=== PATIENT | male | born 1955 | race Hispanic/Latino ===

== ENCOUNTER 2020-03-19 11:40 | Inpatient (IN) | payer BC, MEDICARE ==
[~2020-03-19] VITALS: Ht 182.9 cm; Wt 78.7 kg
[2020-03-19] MEDS ORDERED: ACETAMINOPHEN 325 MG TAB ONE ×2 (12:08→12:11)
[2020-03-19] MEDS ORDERED: CEFTRIAXONE SOD 1 GM VIAL ONE (12:09)
[2020-03-19] MEDS ORDERED: SODIUM CHLORIDE 0.9% 500ML 500 ML IV ONE (12:15)
[2020-03-19] MEDS ORDERED: ACETAMINOPHEN 325 MG TAB PO ONE (12:15)
[2020-03-19 12:22] LABS: BASOPHILS % 0.1 % (0.0-1.0); HEMATOCRIT 33.9 % (38.2-49.6); HEMOGLOBIN 11.1 g/dL (14.0-18.0); LYMPHOCYTES # (AUTO) 0.7 (1.0-3.2); LYMPHOCYTES % 7.2 % (18.0-39.1); MEAN CORPUSCULAR HEMOGLOBIN 29.1 pg (28-32); MEAN CORPUSCULAR HGB CONC 32.7 g/dL (31-35); MEAN CORPUSCULAR VOLUME 88.7 fL (81-99); MONOCYTES # (AUTO) 0.2 (0.2-0.8); NEUTROPHILS # (AUTO) 9.1 (2.1-6.9); NEUTROPHILS % 90.2 % (38.7-80.0); PLATELET COUNT 168 x10e3/uL (140-360); RED BLOOD COUNT 3.82 x10e6/uL (4.3-5.7)
[2020-03-19 12:26] LABS: INR 1.05; PROTHROMBIN TIME 14.3 seconds (11.9-14.5)
[2020-03-19 12:28] LABS: PARTIAL THROMBOPLASTIN TIME 57.7 seconds (23.8-35.5)
[2020-03-19 12:42] LABS: ALBUMIN 3.2 g/dL (3.5-5.0); ALBUMIN/GLOBULIN RATIO 0.7 (0.8-2.0); CALCIUM 8.3 mg/dL (8.4-10.2); CREATININE, SERUM 3.67 mg/dL (0.72-1.25)
[2020-03-19 12:50] LABS: CREATINE KINASE MB 0.3 ng/mL (0-5.0)
[2020-03-19 12:56] LABS: B-TYPE NATRIURETIC PEPTIDE2 608.5 pg/mL (0-100)
--- NOTE | 2020-03-19 12:58 | Diagnostic Imaging Report ---
EXAMINATION: CHEST SINGLE (PORTABLE) INDICATION: Fever COMPARISON: None FINDINGS: LINES/TUBES:Right IJ tunneled hemodialysis catheter terminates in the superior vena cava. EKG leads overlie the chest. LUNGS:The lungs are well-inflated. No focal consolidation or pulmonary edema. PLEURA:No pleural effusion or pneumothorax. MEDIASTINUM:The cardiomediastinal silhouette appears normal in size and shape. Atherosclerotic calcifications of the thoracic aorta. BONES/SOFT TISSUES:No acute osseous injury. ABDOMEN:No free air under the diaphragm. IMPRESSION: No focal pneumonia or pulmonary edema. Signed by: Nathanael Latham MD on 03/19/2020 12:54 PM
[2020-03-19] MEDS ORDERED: ACETAMINOPHEN 325 MG TAB PO PRN (13:45)
[2020-03-19] MEDS ORDERED: SODIUM CHLORIDE 0.9% 250ML 250 ML IV ONE (13:45)
[2020-03-19] MEDS ORDERED: ONDANSETRON HCL INJ 2MG/ML 2ML 2 MG/ML VIAL IV PRN (13:45)
[2020-03-19 14:01] LABS: CLARITY,URINE CLEAR (CLEAR); COLOR,URINE YELLOW (YELLOW); LEUKOCYTE ESTERASE ,URINE NEGATIVE (NEGATIVE); NITRITE,URINE NEGATIVE (NEGATIVE)
[2020-03-19 14:02] LABS: BILIRUBIN,URINE SMALL (NEGATIVE); KETONES,URINE TRACE (NEGATIVE); PROTEIN,URINE DIPSTICK >=300 (NEGATIVE); URINE UROBILINOGEN 0.2 mg/dL (0.2 - 1)
[2020-03-19 14:06] LABS: BACTERIA,URINE RARE /HPF; EPITHELIAL CELLS,URINE FEW /LPF
--- NOTE | 2020-03-19 14:11 | Emergency Department Note ---
History of Present Illnes History of Present Illness Chief Complaint: COVID PUI History of Present Illness This is a 64 year old male Patient sent from HD center after dialysis where he spiked a fever of 101.8 during the last hour of dialysis treatment. Patient reported having chills at the time as well. Patient was given 1gm of Vancomycin at dialysis as well as 80mg of Gentamycin. Patient has an old PD catheter in place as well as a CVC line in his right upper chest. Patient also has a chronic wound to the plantar surface of his left foot near his first toe. Minimal drainage noted on dressing. Patient is alert and oriented X3. Historian: Patient, Family Member Arrival Mode: Car Maintenance Job Titles Required: No Onset (how long ago): hour(s) Location: systemic Quality: fever Radiation: Reports non-radiation Severity: moderate Onset quality: sudden Timing of current episode: intermittent Progression: improving Chronicity: new Context: Denies recent illness Relieving factors: none Exacerbating factors: none Associated symptoms: Reports denies other symptoms, Reports fever/chills; Denies cough, Denies shortness of breath Treatments prior to arrival: none Past Medical/Family History Physician Review I have reviewed the patient's past medical and family history. Any updates have been documented here. Past Medical History Recent Fever: Yes Clinical Suspicion of Infectio: Yes New/Unexplained Change in Ment: Yes Past Medical History: Hypertension, Diabetes, Hyperlipedemia, Chronic Kidney Disease Other Medical History: on hemodialysis T, Th, Sat Other Surgery: Right TMA back surgery Social History Smoking Cessation: Never Smoker Counseling Performed: No Alcohol Use: None Any Illegal Drug Use: No TB Exposure/Symptoms: No Physically hurt or threatened: No Family History Family history of heart diseas: No Other Any Pre-Existing Lines (PICC,: Yes (Juan Manuel Cath to RU chest) Review of Systems Review of Systems Constitutional: Reports chills, Reports fever EENTM: Reports no symptoms Cardiovascular: Reports no symptoms Respiratory: Reports no symptoms Gastrointestinal: Reports no symptoms Genitourinary: Reports no symptoms Musculoskeletal: Reports no symptoms Integumentary: Reports no symptoms Neurological: Reports no symptoms Psychological: Reports no symptoms Endocrine: Reports no symptoms Hematological/Lymphatic: Reports no symptoms Physical Exam Related Data Allergies: Coded Allergies: No Known Allergies (Verified , 04/29/07) Triage Vital Signs Vital Signs Date Time Temp Pulse Resp B/P (MAP) Pulse Ox O2 Delivery O2 Flow Rate FiO2 03/19/20 11:49 102.3 98 18 96 Room Air Vital signs reviewed: Yes Physical Exam CONSTITUTIONAL Constitutional: Present well-developed, Present well-nourished HENT HENT: Present normocephalic, Present atraumatic, Present oropharynx clear/moist, Present nose normal HENT L/R: Present left ext ear normal, Present right ext ear normal EYES Eyes: Reports PERRL, Reports conjunctivae normal NECK Neck: Present ROM normal PULMONARY Pulmonary: Present effort normal, Present breath sounds normal CARDIOVASCULAR Cardiovascular: Present regular rhythm, Present heart sounds normal, Present capillary refill normal, Present normal rate GASTROINTESTINAL Abdominal: Present soft, Present nontender, Present bowel sounds normal GENITOURINARY Genitourinary: Present exam deferred SKIN Skin: Present warm, Present dry, Present other (2 cm ulceration on plantar surface of left foot appears to be healing, no purulent discharge, no surrounding erythema) MUSCULOSKELETAL Musculoskeletal: Present ROM normal NEUROLOGICAL Neurological: Present alert, Present oriented x 3, Present no gross motor or sensory deficits; Absent cranial nerve deficit, Absent sensory deficit, Absent abnormal gait, Absent weakness PSYCHOLOGICAL Psychological: Present mood/affect normal, Present judgement normal Results Laboratory Result Diagram: 03/19/20 1120 03/19/20 1120 Laboratory Laboratory Tests Test 03/19/20 13:39 03/19/20 11:20 Urine Color Yellow (YELLOW) Urine Clarity Clear (CLEAR) Urine pH 6.5 (5 - 7) Urine Specific [place] 1.020 (1.010-1.025) Urine Protein >=300 (NEGATIVE) Urine Glucose (UA) Negative (NEGATIVE) Urine Ketones Trace (NEGATIVE) Urine Blood Small (NEGATIVE) Urine Nitrite Negative (NEGATIVE) Urine Bilirubin Small (NEGATIVE) Urine Urobilinogen 0.2 mg/dL (0.2 - 1) Urine Leukocyte Esterase Negative (NEGATIVE) Urine RBC 6-10 /HPF (0-5) Urine WBC 6-10 /HPF (0-5) Urine Epithelial Cells Few /LPF (NONE) Urine Bacteria Rare /HPF (NONE) White Blood Count 10.09 x10e3/uL (4.8-10.8) Red Blood Count 3.82 x10e6/uL (4.3-5.7) Hemoglobin 11.1 g/dL (14.0-18.0) Hematocrit 33.9 % (38.2-49.6) Mean Corpuscular Volume 88.7 fL (81-99) Mean Corpuscular Hemoglobin 29.1 pg (28-32) Mean Corpuscular Hemoglobin Concent 32.7 g/dL (31-35) Red Cell Distribution Width 14.0 % (11.7-14.4) Platelet Count 168 x10e3/uL (140-360) Neutrophils (%) (Auto) 90.2 % (38.7-80.0) Lymphocytes (%) (Auto) 7.2 % (18.0-39.1) Monocytes (%) (Auto) 2.0 % (4.4-11.3) Eosinophils (%) (Auto) 0.0 % (0.0-6.0) Basophils (%) (Auto) 0.1 % (0.0-1.0) Neutrophils # (Auto) 9.1 (2.1-6.9) Lymphocytes # (Auto) 0.7 (1.0-3.2) Monocytes # (Auto) 0.2 (0.2-0.8) Eosinophils # (Auto) 0.0 (0.0-0.4) Basophils # (Auto) 0.0 (0.0-0.1) Absolute Immature Granulocyte (auto 0.05 x10e3/uL (0-0.1) Prothrombin Time 14.3 seconds (11.9-14.5) Prothromb Time International Ratio 1.05 Activated Partial Thromboplast Time 57.7 seconds (23.8-35.5) Sodium Level 136 mmol/L (136-145) Potassium Level 4.0 mmol/L (3.5-5.1) Chloride Level 98 mmol/L (98-107) Carbon Dioxide Level 24 mmol/L (22-29) Anion Gap 18.0 mmol/L (8-16) Blood Urea Nitrogen 23 mg/dL (7-26) Creatinine 3.67 mg/dL (0.72-1.25) Estimat Glomerular Filtration Rate 17 ML/MIN (60-) BUN/Creatinine Ratio 6 (6-25) Glucose Level 174 mg/dL (74-118) Lactic Acid Level 2.3 mmol/L (0.5-2.0) Calcium Level 8.3 mg/dL (8.4-10.2) Total Bilirubin 1.2 mg/dL (0.2-1.2) Aspartate Amino Transf (AST/SGOT) 17 IU/L (5-34) Alanine Aminotransferase (ALT/SGPT) 16 IU/L (0-55) Alkaline Phosphatase 128 IU/L (40-150) Creatine Kinase 40 IU/L (30-200) Creatine Kinase MB 0.30 ng/mL (0-5.0) Troponin I 0.032 ng/mL (0-0.300) B-Type Natriuretic Peptide 608.5 pg/mL (0-100) Total Protein 7.6 g/dL (6.5-8.1) Albumin 3.2 g/dL (3.5-5.0) Globulin 4.4 g/dL (2.3-3.5) Albumin/Globulin Ratio 0.7 (0.8-2.0) Lab results reviewed: Yes Imaging Imaging results reviewed: Yes Procedures 12 Lead ECG Interpretation ECG Interpretation : ECG: ECG 1 Maintenance Job Titles: Interpreted by ED physician Date: Mar 19, 2020 Time: 11:49 Rhythm: sinus rhythm (with 1st degree AVB) Rate: normal (100) ST segments normal: Yes T waves normal: Yes Clinical Impression: normal ECG Assessment & Plan Medical Decision Making MDM fever at HD today, unclear source but considering COVID pandemic must consider this but pt has no cough or SOB. Pt is ESRD on HD with HD cath right IJ without tenderness or erythema, PD cath that has been recently placed but not used yet without evid of infection, has plantar diabetic foot ulcer that appears to be healing and does not look infected. Will get cbc, chem, cardiacs, ua/cx, blood cx's, lactic, covid swab, cxr - r/o covid, pneumonia, uti, osteomyelitis. Reassessment Reassessment still no apparent source and therefore more likely to be viral etiology, COVID19. Lactic elevated at 2.3 but pt is ESRD. Due to likelihood of viral source and possible elevation of lactic from ESRD, will only give small amount of fluid. Pt already received Vanco/Gent at dialysis center. I spoke with Dr Almaraz (nephrology) and Dr Brian for admission Assessment & Plan Final Impression: (1) Fever of unknown origin (2) ESRD (end stage renal disease) (3) Diabetic foot ulcer Depart Disposition: ADMITTED Last Vital Signs Date Time Temp Pulse Resp B/P (MAP) Pulse Ox O2 Delivery O2 Flow Rate FiO2 03/19/20 14:05 99.9 69 18 121/92 95 Room Air Medications in the ED Acetaminophen 975 mg STK-MED ONCE .ROUTE ; Start 03/19/20 at 12:08; Stop 03/19/20 at 12:02; Status DC Ceftriaxone Sodium STK-MED ONCE .ROUTE ; Start 03/19/20 at 12:09; Stop 03/19/20 at 12:03; Status DC Acetaminophen 325 mg STK-MED ONCE .ROUTE ; Start 03/19/20 at 12:11; Stop 03/19/20 at 12:05; Status DC Acetaminophen 975 mg ONCE ONCE PO Last administered on 03/19/20at 12:15; Admin Dose 975 MG; Start 03/19/20 at 12:15; Stop 03/19/20 at 13:56; Status DC Sodium Chloride 500 ml @ 0 mls/hr Q0M ONCE IV Last administered on 03/19/20at 13:42; Admin Dose 500 MLS/HR; Start 03/19/20 at 12:15; Stop 03/19/20 at 13:56; Status DC Ondansetron HCl 4 mg Q4H PRN IV NAUSEA AND VOMITING; Start 03/19/20 at 13:45; Stop 04/18/20 at 13:44 Sodium Chloride 250 ml @ 0 mls/hr ONCE ONCE IV Last administered on 03/19/20at 14:05; Admin Dose 250 MLS/HR; Start 03/19/20 at 13:45; Stop 03/19/20 at 13:56; Status DC Acetaminophen 650 mg Q4H PRN PO Mild Pain (1-3) or Fever>100.8; Start 03/19/20 at 13:45; Stop 04/18/20 at 13:44 SUN EDMONDS MD Mar 19, 2020 14:11
--- NOTE | 2020-03-19 14:50 | Diagnostic Imaging Report ---
EXAMINATION: FOOT LEFT COMPLETE INDICATION: Plantar foot ulcer COMPARISON: None FINDINGS: AP, lateral and oblique radiographs of the left foot were obtained. No acute fracture or dislocation. Alignment is anatomic. Scattered degenerative changes. Small plantar calcaneal spur. Soft tissues appear unremarkable. No specific radiographic evidence of osteomyelitis. Atherosclerotic arterial calcifications. IMPRESSION: No acute osseous injury. No specific radiographic evidence of osteomyelitis. Signed by: Nathanael Latham MD on 03/19/2020 2:47 PM
[2020-03-19 15:40] VITALS: BP 101/55
--- NOTE | 2020-03-19 15:40 | NUR ---
PATIENT RECEIVED FROM ER PER WHEEL CHAIR. ALERT AND VERBALLY RESPONSIVE, DENIED PAIN AT THIS TIME. SKIN WARM AND DRY TO TOUCH, RESP EVEN AND UNLABORED, ABDOMEN SOFT AND NON DISTENDED. WOUND TO LEFT FOOT WITH DRESSING INTACT, TELEMETRY BOX [address] BED IN LOWER POSITION,,CALL LIGHT AT REACH. INSTRUCTED TO CALL FOR ASSISTANCE NEEDED.
[2020-03-19] MEDS ORDERED: SODIUM CHLORIDE 0.9% 250ML 250 ML ONE (16:54)
[2020-03-19] MEDS: CEFEPIME 1GM/NS 0.9% 50 ML 50 ML IV SCH (17:00)
--- NOTE | 2020-03-19 19:49 | Consultation ---
DATE OF CONSULTATION: HISTORY OF PRESENT ILLNESS: This is a 64-year-old male, comes in from the dialysis, after dialysis he spiked a fever. The patient has been having chills, fever, not feeling well. He was given dose of vancomycin 1 g, gentamicin 80 mg. He was sent here. The patient is being admitted, I am asked to see him with fever and chills. PAST MEDICAL HISTORY: The patient does have underlying history of end-stage renal disease, on hemodialysis, hypertension, diabetes mellitus, and hyperlipidemia. He is on hemodialysis Wednesday, , Wednesday. PAST SURGICAL HISTORY: TMA, back surgery. ALLERGIES: NKA. SOCIAL HISTORY: There is no smoking, drug abuse, alcohol abuse. FAMILY HISTORY: Hypertension. REVIEW OF SYSTEMS: GENERAL: He is just not feeling well. Fever and chills as mentioned above. : Negative. GI: Negative. Otherwise all negative. LABORATORY DATA: White count 10.09, hemoglobin 11.1. His COVID-19 still pending. Sodium 136, potassium 4.0, creatinine . Chest x-ray, no focal pneumonia. PHYSICAL EXAMINATION: GENERAL: He is currently alert, oriented. VITAL SIGNS: Stable. Currently afebrile. He had 102.3 earlier. HEENT: He is not icteric. NECK: Supple. CHEST: Clear bilaterally. HEART: S1, S2. No S3, S4, or murmur. ABDOMEN: Soft. Bowel sounds present. EXTREMITIES: No edema. SKIN: No rash. IMPRESSION: Fever in a patient on hemodialysis, source is unclear. Agree with blood cultures. Agree with urine cultures. We will put him on vancomycin and cefepime. Recheck CBC. Recheck Chem panel. Coronavirus disease-19 is pending. We will follow with you. Further recommendations pending on the workup. MD IRENE Centeno/GWEN /[id number]
[2020-03-19 20:00] VITALS: BP 131/63
--- NOTE | 2020-03-19 20:06 | NUR ---
CALLED MD WEBBER AND LEFT MESSAGE WITH ANSWERING SERVICE. AWAITING CALL BACK.
--- NOTE | 2020-03-19 20:23 | NUR ---
SPOKE TO MD WEBBER. NEW ORDERS RECEIVED.
[2020-03-19] MEDS ORDERED: DEXTROSE 50% SYRINGE 50 ML IV PRN (20:30)
[2020-03-19] MEDS: INSULIN REGULAR, HUMAN 100 UNIT/1 ML 3ML VIAL SQ SCH (21:09)
--- NOTE | 2020-03-19 21:25 | Consultation ---
DATE OF CONSULTATION: 03/19/2020 HISTORY OF PRESENT ILLNESS: The patient in the emergency room, he is PUI, COVID test pending. Apparently, this is a 64-year-old gentleman, patient of renal specialist, dialyzes at [facility], went to dialysis, had high-grade fever and chills to 102, had blood cultures drawn. A gram of vancomycin and gentamicin 80 mg given. Sent here to the emergency room. he currently denies any chills, cough, headaches. He has an ulcer in his foot. Chest x-ray is negative. His foot x-ray shows no acute osseous injury. LABORATORY TESTS: White count 10, hemoglobin 11.1, potassium 4, bicarb 24, lactic acid 2.3. BNP 608. Urinalysis shows specific gravity 1.020, dipstick positive protein, 6-10 rbc's, 6-10 wbc's. COVID test is pending. ALLERGIES: NO APPARENT DRUG ALLERGIES. CURRENT MEDICATIONS: Please see MAR for details. He was given 500 mL normal saline bolus, a dose of ceftriaxone. SOCIAL HISTORY: Does not smoke or drink. FAMILY HISTORY: Significant for diabetes. PAST MEDICAL HISTORY: Diabetes, diabetic kidney disease, end-stage renal disease, has a peritoneal dialysis catheter as well as a tunneled dialysis catheter. He has not yet started on PD yet. PHYSICAL EXAMINATION: GENERAL: Awake, alert, oriented x3. VITAL SIGNS: Blood pressure 121/92, pulse rate 69, afebrile, oxygen saturation 95% on room air. HEAD AND NECK: Corneas clear. Mucosa moist. LUNGS: Relatively clear. HEART: S1, S2 audible. ABDOMEN: Soft, nontender. EXTREMITIES: Lower extremities, no edema. IMPRESSION AND PLAN: Fever, chills. Chest x-ray negative. COVID test pending. Abdomen soft. PD catheter exit site satisfactory. No sign of any abdominal peritonitis. PD catheter has not been used. Tunneled dialysis catheter, status post dialysis today. Empiric antibiotics given. Await results. Please see orders. MD ESTHER Gonzalez/GWEN /[id number]
[2020-03-19] MEDS ORDERED: [UNRECOGNIZED DRUG - OTHER] PO (21:45)
[2020-03-19] MEDS ORDERED: MIRALAX17 GM PO (21:45)
[2020-03-19] MEDS ORDERED: TRESIBA FL100 UNIT/1 SC (21:45)
[2020-03-19] MEDS ORDERED: SEVELAMER PO (21:45)
[2020-03-19] MEDS ORDERED: CHLORTHALIDONE PO (21:45)
[2020-03-19] MEDS ORDERED: METOPROLOL SUCC50 MG PO (21:45)
[2020-03-19] MEDS ORDERED: ATORVASTATIN CA20 MG PO (21:45)
[2020-03-20] VITALS (8 sets, daily range): BP systolic 108–135; BP diastolic 43–64
[2020-03-20] MEDS: HYDROCODONE/APAP 5MG-325MG TAB PO PRN ×3 (04:31→19:35)
[2020-03-20 04:47] LABS: BASOPHILS % 0.3 % (0.0-1.0); EOSINOPHILS % 0.1 % (0.0-6.0); HEMATOCRIT 32.5 % (38.2-49.6); HEMOGLOBIN 10.2 g/dL (14.0-18.0); LYMPHOCYTES # (AUTO) 2.3 (1.0-3.2); LYMPHOCYTES % 16.1 % (18.0-39.1); MEAN CORPUSCULAR HEMOGLOBIN 28.3 pg (28-32); MEAN CORPUSCULAR HGB CONC 31.4 g/dL (31-35); MONOCYTES # (AUTO) 1.5 (0.2-0.8); MONOCYTES % 10.3 % (4.4-11.3); NEUTROPHILS # (AUTO) 10.5 (2.1-6.9); NEUTROPHILS % 72.7 % (38.7-80.0); PLATELET COUNT 160 x10e3/uL (140-360); RED BLOOD COUNT 3.61 x10e6/uL (4.3-5.7); RED CELL DISTRIBUTION WIDTH 14.1 % (11.7-14.4)
[2020-03-20 05:10] LABS: ALBUMIN 2.7 g/dL (3.5-5.0); ALBUMIN/GLOBULIN RATIO 0.7 (0.8-2.0); ANION GAP 15.7 mmol/L (8-16); CALCIUM 8.3 mg/dL (8.4-10.2); CREATININE, SERUM 5.59 mg/dL (0.72-1.25); POTASSIUM 4.7 mmol/L (3.5-5.1)
[2020-03-20] MEDS ORDERED: DOCUSATE SODIUM 100 MG CAP PO PRN (06:00)
[2020-03-20] MEDS ORDERED: ZOLPIDEM TARTRATE 5 MG TAB PO PRN (06:00)
--- NOTE | 2020-03-20 06:01 | NUR ---
H&P cc: infection of foot HPI: 64yoM, PCP , developed infection of foot, with pain, swelling, drainage. no f/c/s. PMH: ESRD on HD, DM2, Osteomyelitis of left foot 5th digit PShx: left TMA, HD access, peritoneal catheter Allergies; see emr Fh/Sh; single; no ciugs meds; see MAR ROS; no f/c/s/N/V/D/BROOKS/cp/sob/confusion/vision chagnes v/s; revd PE tired appearing anicteric ns1s2 mod bs soft nd; peritoneal catheter in place HD catheter in place left TMA; right plantar 1st MTP ulcer with minimal drainage A&Ox3; grande normal mood labs/med revd A/P: 64yoM Sepsis due to DFU- IV cefepime/vancomycin Right DFU- IV abx; f/u cx DM2- hab1c/lipids/SSI ESRD- HD per nephr COVID19 Negative Gait dysfunction- PT consult Prop: heparin Dispo; Johnathon Brian MD, PhD.
[2020-03-20 06:26] LABS: CHOL/HDL RATIO 4.6 (3.9-4.7)
--- NOTE | 2020-03-20 07:09 | NUR ---
REPORT GIVEN TO DAYSHIFT NURSE. RESTING IN BED. NO ADVERSE SIGNS OR SYMPTOMS. NO SIGNS IV INFILTRATION. BED LOCKED AND IN LOW POSITION. CALL LIGHT WITHIN REACH. DAYSHIFT CHARGE NURSE NOTIFIED OF COVID RESULTS.
[2020-03-20] MEDS ORDERED: SEVELAMER 800 MG PO SCH (08:00)
--- NOTE | 2020-03-20 09:21 | NUR ---
Patient came back negative for COVID. meat supervisor was made aware and asked that patient be transferred to room 287. Report was called to JOESPH Cervantes at 0910. Patient assessed, given morning medication, IV redressed, and explained of the next steps in his plan of care. Foot was cleaned, redressed, and covered with his sock, per his request. Patient had no questions or complaints at this time. Patient will be brought via wheelchair at this time of 0923 to room 287.
[2020-03-20] MEDS: SEVELAMER CARBONATE 800 MG TAB PO SCH ×3 (09:24→16:22)
[2020-03-20] MEDS: ATORVASTATIN 20 MG TAB PO SCH (09:24)
[2020-03-20] MEDS: METOPROLOL SUCCINATE 50 MG TAB XL PO SCH (09:25)
[2020-03-20] MEDS: INSULIN REGULAR, HUMAN 100 UNIT/1 ML 3ML VIAL SQ SCH ×4 (09:35→21:10)
--- NOTE | 2020-03-20 09:35 | NUR ---
RECEIVED PATIENT FROM OBS RM 178 PER WHEELCHAIR. REPORT RECEIVED FROM RN PRIOR TO TRANSFER. PATIENT IS AWAKE, ALERT, AND IN STABLE CONDITION WITH NO S/S OF RESPIRATORY DISTRESS. NO C/O PAIN. DRESSING APPLIED TO LEFT FOOT. RIGHT FOOT TMA NOTED. PATIENT AMBULATES WITH CRUTCH x1. PATIENT RECEIVES DIALYSIS ON T-TH-SAT; DIALYSIS ACCESS IS NOTED TO RIGHT SUBCLAVIAN SITE. URINAL PROVIDED TO PATIENT. TELEMETRY APPLIED. CALL LIGHT IS WITHIN REACH, PATIENT INSTRUCTED TO CALL FOR ASSISTANCE NEEDED.
[2020-03-20] MEDS: HEPARIN SOD (PORCINE) 5,000 UNIT/ML VIAL SC SCH ×2 (09:36→21:10)
--- NOTE | 2020-03-20 16:06 | NUR ---
CALLED [facility]- SPOKE TO LIZANDRO REGARDING THE PATIENT NEEDING HEMODIALYSIS FOR TOMORROW, 03/21/20. INFO GIVEN TO LIZANDRO FOR DIALYSIS NURSE.
[2020-03-20] MEDS ORDERED: SODIUM CHLORIDE 0.9% 250ML 250 ML ONE (16:20)
[2020-03-20] MEDS: CEFEPIME 1GM/NS 0.9% 50 ML 50 ML IV SCH (16:22)
--- NOTE | 2020-03-20 19:10 | NUR ---
Patient visited in room during nursing rounds. Patient alert and oriented x3. Ambulatory in room prn. Left foot with wound and covered with dressing (C/D/I). Pt is a dialysis patient (T, Th, Sat) with dialysis access to right subclavian and peritoneal access. Call cruz within reach. Will monitor closely.
--- NOTE | 2020-03-20 19:31 | NUR ---
PATIENT IN STABLE CONDITION WITH NO S/S OF RESPIRATORY DISTRESS. CALL LIGHT IS WITHIN REACH, PATIENT INSTRUCTED TO CALL FOR ASSISTANCE NEEDED. REPORT GIVEN TO ONCOMING NURSE.
--- NOTE | 2020-03-20 20:30 | NUR ---
Nurse (Kingsley) spoke with daughter (Josefina) over the phone. Daughter's questions were addressed to her satisfaction. Josefina wanted to be updated daily. This information will be relayed to incoming dayshift RN.
--- NOTE | 2020-03-20 20:30 | Progress Note ---
DATE: SUBJECTIVE: Mr. Sewell is feeling better. There is no new complaint. He has gram-negative in blood. PHYSICAL EXAMINATION: GENERAL: Currently alert and oriented. VITAL SIGNS: Stable, afebrile. HEENT: He is not icteric. NECK: Supple. CHEST: Clear. HEART: S1 and S2. No murmur. ABDOMEN: Soft. IMPRESSION: Sepsis secondary to line infection. We will continue with cefepime. Discontinue vancomycin. Add gentamicin. Remove line. Recheck blood cultures after removal of the line. We will discuss with Renal. MD IRENE Centeno/GWEN /[id number]
[2020-03-21] VITALS (7 sets, daily range): BP systolic 119–147; BP diastolic 48–78
--- NOTE | 2020-03-21 07:00 | NUR ---
RECEIVED BEDSIDE SHIFT REPORT FROM OFF GOING NIGHT NURSE. PATIENT IN STABLE CONDITION, NO S/S OF DISTRESS NOTED. IV LINE ASYMPTOMATIC AND PATIENT, TRANSPARENT DRESSING C/D/I. PATIENT RECEIVING WOUND CARE TREATMENT TO THE FOOT. TELEMETRY APPLIED. BED IN LOWEST POSITION AND LOCKED, SIDE RAILS X2 , NONSKID SOCKS APPLIED. CALL LIGHT WITHIN REACH.
--- NOTE | 2020-03-21 07:01 | NUR ---
IM- progess note O/N see below ROS; no f/c/s/N/V/D/BROOKS/cp/sob/confusion/vision chagnes v/s; revd PE tired appearing anicteric ns1s2 mod bs soft nd; peritoneal catheter in place HD catheter in place left TMA; right plantar 1st MTP ulcer with minimal drainage A&Ox3; grande normal mood labs/med revd A/P: 64yoM Sepsis due to DFU- IV cefepime/vancomycin Right DFU- IV abx; f/u cx DM2- hab1c/lipids/SSI ESRD- HD per nephr COVID19 Negative Gait dysfunction- PT consult Prop: heparin Dispo; 03-21-20 cont care; f/u labs; COVID negative; check CBC; GNR baceremia- IV abx f/u cx; follow vitals Johnathon Brian MD, PhD.
[2020-03-21] MEDS: INSULIN REGULAR, HUMAN 100 UNIT/1 ML 3ML VIAL SQ SCH ×4 (07:30→21:02)
[2020-03-21] MEDS: SEVELAMER CARBONATE 800 MG TAB PO SCH ×3 (08:00→16:54)
[2020-03-21] MEDS: HEPARIN SOD (PORCINE) 5,000 UNIT/ML VIAL SC SCH ×2 (09:00→21:02)
[2020-03-21] MEDS: ATORVASTATIN 20 MG TAB PO SCH (09:00)
[2020-03-21] MEDS: METOPROLOL SUCCINATE 50 MG TAB XL PO SCH (09:00)
[2020-03-21] MEDS ORDERED: SODIUM CHLORIDE 0.9% 1000ML 2,000 ML ONE (09:09)
[2020-03-21 09:10] LABS: BASOPHILS % 0.2 % (0.0-1.0); EOSINOPHILS # (AUTO) 0.2 (0.0-0.4); EOSINOPHILS % 1.8 % (0.0-6.0); HEMATOCRIT 29.3 % (38.2-49.6); HEMOGLOBIN 9.2 g/dL (14.0-18.0); LYMPHOCYTES # (AUTO) 1.9 (1.0-3.2); LYMPHOCYTES % 22.7 % (18.0-39.1); MEAN CORPUSCULAR HGB CONC 31.4 g/dL (31-35); MEAN CORPUSCULAR VOLUME 89.1 fL (81-99); MONOCYTES # (AUTO) 0.9 (0.2-0.8); MONOCYTES % 11.3 % (4.4-11.3); NEUTROPHILS # (AUTO) 5.3 (2.1-6.9); NEUTROPHILS % 63.8 % (38.7-80.0); PLATELET COUNT 170 x10e3/uL (140-360); RED BLOOD COUNT 3.29 x10e6/uL (4.3-5.7); RED CELL DISTRIBUTION WIDTH 13.9 % (11.7-14.4)
[2020-03-21] MEDS ORDERED: HEPARIN SOD (PORCINE) 1000 UNIT/ML SDV IV ONE (09:15)
--- NOTE | 2020-03-21 14:04 | Consultation ---
DATE OF CONSULTATION: Wound Consultation HISTORY OF PRESENT ILLNESS: A 64-year-old male patient with history of diabetes mellitus, hypertension, end-stage renal disease, history of diabetic foot ulcer, status post right transmetatarsal amputation. He developed a wound on the left 1st metatarsal plantar foot. Wound consult was called. The patient has right eschar with bruising to the left plantar 1st metatarsal head and no pain on flexion. The patient is getting dialysis. PAST MEDICAL HISTORY: Hyperlipidemia, hypertension, diabetes mellitus, end-stage renal disease, history of diabetic foot ulcers. REVIEW OF SYSTEMS: The patient admitted for gram-negative sepsis, not a source from the wound. ALLERGIES: ALLERGIES. PHYSICAL EXAMINATION: VITAL SIGNS: Height is 72 inches, weight 179 pounds. HEENT: Normal. NECK: No JVD. ABDOMEN: Soft. Bowel sounds normal. EXTREMITIES: Lower extremities, no edema. Right TMA amputation site normal. Left foot on the 1st plantar metatarsal head, the patient has wound unstageable from callus and diabetic foot ulcer. The patient has a wound, a diabetic foot ulcer, Shepherd grade 2, no drainage noted, dry. ASSESSMENT: Left plantar 1st metatarsal head diabetic foot ulcer, Shepherd 2. PLAN: We will consider debridement and apply Hydrogel, Mepilex to the foot. Thank you for consultation. MD ALEX Armenadriz/DENIZL /[id number]
[2020-03-21] MEDS: HYDROCODONE/APAP 5MG-325MG TAB PO PRN (16:45)
[2020-03-21] MEDS: CEFEPIME 1GM/NS 0.9% 50 ML 50 ML IV SCH (16:54)
[2020-03-21] MEDS ORDERED: VANCOMYCIN 1GM/NS 250 ML 250 ML IV SCH (18:00)
--- NOTE | 2020-03-21 19:10 | NUR ---
Patient visited in room during nursing rounds. Patient alert and oriented x3. Ambulatory in room prn. Left foot with wound and covered with dressing (C/D/I). Pt is a dialysis patient (T, Th, Sat) with dialysis access to right subclavian and peritoneal access. Patient had hemodialysis today and 2 L was taken off. Call cruz within reach. Will monitor closely.
--- NOTE | 2020-03-21 19:29 | NUR ---
COMPLETED BEDSIDE SHIFT REPORT AND ROUNDING WITH THE NIGHT NURSE. PATIENT IN STABLE CONDITION, NO S/S OF DISTRESS NOTED. IV LINE ASYMPTOMATIC AND PATIENT, TRANSPARENT DRESSING C/D/I. PATIENT RECEIVING WOUND CARE TREATMENT TO THE FOOT. TELEMETRY APPLIED. BED IN LOWEST POSITION AND LOCKED, SIDE RAILS X2 , NONSKID SOCKS APPLIED. CALL LIGHT WITHIN REACH.
--- NOTE | 2020-03-21 23:32 | Progress Note ---
DATE: SUBJECTIVE: Mr. Sewell is doing well. There is no new complaint: PHYSICAL EXAMINATION: GENERAL: He is currently alert, oriented. VITAL SIGNS: Stable, afebrile. HEENT: He is not icteric. NECK: Supple. CHEST: Clear. HEART: S1, S2. No murmurs. ABDOMEN: Soft. Bowel sounds present. EXTREMITIES: No edema. SKIN: No rash. IMPRESSION: Sepsis, resolved. From Infectious Disease point of view, the patient has gram-negative bacteremia. Continue cefepime discontinue vancomycin. Await culture and sensitivity. Recheck blood cultures negative. Want to known on the bacteremia, we can change to oral antibiotic. We will follow. MD IRENE Centeno/GWEN /[id number]
[2020-03-22] VITALS (9 sets, daily range): BP systolic 140–179; BP diastolic 52–81
[2020-03-22 06:06] LABS: BASOPHILS % 0.5 % (0.0-1.0); EOSINOPHILS # (AUTO) 0.1 (0.0-0.4); EOSINOPHILS % 1.4 % (0.0-6.0); HEMATOCRIT 30.7 % (38.2-49.6); HEMOGLOBIN 9.7 g/dL (14.0-18.0); LYMPHOCYTES # (AUTO) 2.6 (1.0-3.2); LYMPHOCYTES % 30.6 % (18.0-39.1); MEAN CORPUSCULAR HEMOGLOBIN 28.7 pg (28-32); MEAN CORPUSCULAR HGB CONC 31.6 g/dL (31-35); MEAN CORPUSCULAR VOLUME 90.8 fL (81-99); MONOCYTES # (AUTO) 1.2 (0.2-0.8); MONOCYTES % 14.8 % (4.4-11.3); NEUTROPHILS # (AUTO) 4.4 (2.1-6.9); NEUTROPHILS % 52.3 % (38.7-80.0); PLATELET COUNT 191 x10e3/uL (140-360); RED BLOOD COUNT 3.38 x10e6/uL (4.3-5.7)
--- NOTE | 2020-03-22 06:48 | NUR ---
IM- progess note O/N see below ROS; no f/c/s/N/V/D/BROOKS/cp/sob/confusion/vision chagnes v/s; revd PE tired appearing anicteric ns1s2 mod bs soft nd; peritoneal catheter in place HD catheter in place left TMA; right plantar 1st MTP ulcer with minimal drainage A&Ox3; grande normal mood labs/med revd A/P: 64yoM Sepsis due to DFU- IV cefepime/vancomycin Right DFU- IV abx; f/u cx DM2- hab1c/lipids/SSI ESRD- HD per nephr COVID19 Negative Gait dysfunction- PT consult Prop: heparin Dispo; 03-21-20 cont care; f/u labs; COVID negative; check CBC; GNR baceremia- IV abx f/u cx; follow vitals 03-22 GNR bacteremia in 1 bottle; awaiting spp/sen; start lantus; Johnathon Brian MD, PhD.
[2020-03-22] MEDS: INSULIN GLARGINE 100 UNITS/ML VIAL SQ SCH ×2 (07:00→20:59)
--- NOTE | 2020-03-22 07:00 | NUR ---
RECEIVED BEDSIDE SHIFT REPORT WITH OFF GOING NIGHT NURSE. PATIENT IN STABLE CONDITION, NO S/S OF DISTRESS NOTED. TELEMETRY APPLIED. IV SITE ASYMPTOMATIC AND PATENT, TRANSPARENT DRESSING C/D/I. BED ALARM APPLIED. BED IN LOWEST POSITION AND LOCKED, SIDE RAILS X2, NONSKID SOCKS APPLIED. CALL LIGHT WITHIN REACH.
[2020-03-22] MEDS: INSULIN REGULAR, HUMAN 100 UNIT/1 ML 3ML VIAL SQ SCH ×4 (07:30→20:59)
[2020-03-22] MEDS: HEPARIN SOD (PORCINE) 5,000 UNIT/ML VIAL SC SCH ×2 (09:00→20:58)
[2020-03-22] MEDS: ATORVASTATIN 20 MG TAB PO SCH (09:14)
[2020-03-22] MEDS: METOPROLOL SUCCINATE 50 MG TAB XL PO SCH (09:15)
[2020-03-22] MEDS: SEVELAMER CARBONATE 800 MG TAB PO SCH ×3 (09:15→17:57)
[2020-03-22] MEDS: HYDROCODONE/APAP 5MG-325MG TAB PO PRN ×2 (09:22→19:04)
--- NOTE | 2020-03-22 11:14 | Operative Report ---
DATE OF PROCEDURE: SURGEON: Radha Burns MD PROCEDURE: Wound debridement. INDICATION: A 64-year-old male patient admitted with a diabetic foot ulcer, Shepherd grade 2 on the left 1st plantar metatarsal head. PROCEDURE IN DETAIL: After explaining the procedure, I used a curette, did excisional debridement went through the subcutaneous tissue, removed all the nonviable tissue and part of the viable tissue. There was minimal bleeding, controlled with the pressure. Wound cleaned with normal saline. Applied Hydrogel, 4 x 4 and tape. The patient tolerated the procedure well. Area debrided 3 x 3 square cm. Radha Burns MD TG/MODL /[id number]
--- NOTE | 2020-03-22 16:53 | NUR ---
progress note Mr. Sewell is doing well. There is no new complaint: PHYSICAL EXAMINATION: GENERAL: He is currently alert, oriented. VITAL SIGNS: Stable, afebrile. HEENT: He is not icteric. NECK: Supple. CHEST: Clear. HEART: S1, S2. No murmurs. ABDOMEN: Soft. Bowel sounds present. EXTREMITIES: No edema. SKIN: No rash. IMPRESSION: Sepsis, resolved. From Infectious Disease point of view, the patient has gram-negative bacteremia. Continue cefepime discontinue vancomycin. Await culture and sensitivity. Recheck blood cultures negative. , we can change to oral antibiotic. We will follow.
[2020-03-22] MEDS: CEFEPIME 1GM/NS 0.9% 50 ML 50 ML IV SCH (17:57)
--- NOTE | 2020-03-22 19:00 | NUR ---
Resumed care of patient. Patient awake and resting in bed, respirations even and unlabored on room air, no s/s of distress at this time. Bed locked and in lowest position, side rails upx3, call light placed within reach. Patient instructed to call for assistance if needed, verbalized understanding. All safety measures in place.
--- OUTSIDE RECORDS SUMMARY | 2020-03-22 19:11 | XMS REPORT | Continuity of Care Document ---
Author Author [facility] Organization 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 Name Role Phone Mohan NORMAN, Jose Luis Sutton PCP EARNEST WEBBER Attphys Unavailable Soledad Bowser Attphys Unavailable Camacho, Meriam Attphys Unavailable Makenna Ferguson Attphys Unavailable Markus Dobbs MD Attphys Markus DOBBS Attphys Unavailable Jose Luis Preston MD Attphys [facility]ino [facility] Attphys Unavailable Micah PINK, P Teodora Attphys Unavailable Stephan Guzmán DO Attphys [phone] Harman Rasmussen MD Attphys EARNEST WEBBER Admphys Unavailable Payers Payer Name Policy Type Policy Number Effective Date Expiration Date S ourkali [employer] HE[employer]ING ALLxxxxxxxxxMaps Contracted xxxxxxxxx [facility] HEALTH[employer]PRINGGNA HEALTHSPRING HMO MCR [id number] /08/2018-PresentHMO xxxxxxxxxxx 2018 00:00:00 Ronnie Lr odist Problems Condition Name Condition Details Condition Category Status Onset Date Resolution Date Last Treatment Date Treating Clinician Comments Source ESRD (end stage renal disease) on dialysis ESRD (end s tage renal disease) on dialysis Disease Active 2019-08-23 00:00:00 Overview: currently on HD; planned transition to CCPD [facility] Diabetic retinopathy Diabetic retinopathy Disease Active 00:00:00 Overview: Bilateral; s/p laser surgery t o L eye; pending to R eye [facility] Diabetes mellitus Diabetes mellitus Disease Active 2013-08-23 00:00:00 [facility] Hyperlipidemia Hyperlipidemia Disease Active 2013-08-23 00:00:00 [facility] Hypertension Hypertension Disease Active 1989-08-23 00:00:00 [facility] Allergies, Adverse Reactions, Alerts Allergy Name Allergy Type Status Severity Reaction(s) Onset Date Inacti ve Date Treating Clinician Comments Source No Known Allergies DA Active U 2019-09-29 00:00:00 [facility] No Known Allergies DA Active U 2015-05-25 00:00:00 [facility] Family History Family Member Diagnosis Comments Start Date Stop Date Source Natural brother Diabetes [facility] Natural brother Hypertension [facility] Natural mother Diabetes [facility] Natural mother Hypertension [facility] Social History Social Habit Start Date Stop Date Quantity Comments Source History SDOH Alcohol Std Drinks [facility] History SDOH Alcohol Binge [facility] Sex Assigned At [facility] History SDOH Alcohol Frequency 2019-09-27 00:00:00 2019-09-27 00:00:0 0 1 [facility] Alcohol intake 2019-07-03 00:00:00 2019-07-03 00:00:00 Lifetime non-drinker (finding) Ronnie Mcfarland Smoking Status Start Date Stop Date Source Never smoker [facility] Medications Ordered Medication Name Filled Medication Name Start Date Stop Da te Current Medication? Ordering Clinician Indication Dosage Frequency Signature (SIG) Comments Components Source calcium carbonate (TUMS) 500 mg chewable tablet 2019-09-27 10:56 :38 Yes 1{tbl} QD Take 1 tablet by mouth daily. [facility] insulin degludec (TRESIBA FLEXTOUCH U-200) 200 unit/mL (3 mL ) InPn 2019-09-27 10:54:50 Yes 16U Q24H 16 Units daily. [facility] ferrous fumarate 325 mg (106 mg iron) Tab 2019-09-27 10:54:50 Yes 650mg Q24H 650 mg daily. [facility] NIFEdipine (PROCARDIA-XL) 60 MG (OSM) 24 hr tablet 2019-09 10:54:49 Yes 60mg QD Take 60 mg by mouth daily. [facility] multivitamin (DAILY DIET SUPPORT ORAL) 2019-09-27 10:47:36 Yes QD daily. [facility] atorvastatin (LIPITOR) 80 MG tablet 2019-09-15 00:00:00 Yes QD daily. [facility] HYDROcodone-acetaminophen (NORCO 7.5-325) 7.5-325 mg per tab let 2019-09-12 00:00:00 Yes as needed. [facility] metoprolol (TOPROL-XL) 50 MG 24 hr tablet 2019-09-06 00:00:00 Yes TK 1 T PO ONCE D [facility] chlorthalidone (HYGROTON) 25 MG tablet 2019-09-06 00:00:00 Yes QD daily. [facility] chlorthalidone (HYGROTEN) 25 MG tablet 2019-07-03 20:50:59 Yes 25mg QD Take 25 mg by mouth daily. Ronnie mejia insulin degludec (TRESIBA FLEXTOUCH U-100) 100 unit/mL (3 mL ) insulin pen 2019-07-03 20:50:59 Yes 14U QD Inject 14 Units un uri the skin daily. Ronnie Mcfarland atorvastatin (LIPITOR) 80 MG tablet 2019-07-03 20:50:58 Yes 80mg QD Take 80 mg by mouth daily. Ronnie Mcfarland lisinopril (PRINIVIL) 5 mg tablet 2019-07-03 20:50:58 Yes 5mg QD Take 5 mg by mouth daily. Ronnie Mcfarland NIFEdipine XL (PROCARDIA XL) 60 MG 24 hr tablet 2019-07-03 20:50 :58 Yes 60mg QD Take 60 mg by mouth daily. Lien Mcfarland metoprolol succinate XL (TOPROL-XL) 50 mg 24 hr tablet 2019-07-03 20:50:58 Yes 50mg QD Take 50 mg by mouth daily. Ronnie Mcfarland sevelamer (RENAGEL) 800 MG tablet 2019-07-03 20:47:32 Ye s 800mg Q.[id number] Take 800 mg by mouth 3 (three) times a day with meals. Ronnie Mcfarland Immunizations Ordered Immunization Name Filled Immunization Name Date Status Comments Source Tdap 2019-02-23 00:00:00 Completed [facility] V[facility] Sign[facility] Vital Name Observation Time Observation Value Comments Source Systolic blood pressure 2019-10-18 11:23:00 173 mm[Hg] [facility] Diastolic blood pressure 2019-10-18 11:23:00 70 mm[Hg] [facility] Heart rate 2019-10-18 11:23:00 90 /min [facility] Body height 2019-10-18 09:00:00 167.6 cm [facility] Body weight Measured 2019-10-18 09:00:00 79.833 kg [facility] BMI 2019-10-18 09:00:00 28.41 kg/m2 [facility] Body temperature 2019-09-27 13:03:00 36.61 Fanny [facility] Respiratory rate 2019-09-27 13:03:00 18 /min [facility] Systolic blood pressure 2019-07-03 21:05:00 189 mm[Hg] Ronnie Mcfarland Diastolic blood pressure 2019-07-03 21:05:00 78 mm[Hg] Ronnie Mcfarland Heart rate 2019-07-03 21:05:00 71 /min Ronnie Mcfarland Body temperature 2019-07-03 21:05:00 37 Fanny Ronnie Mcfarland Respiratory rate 2019-07-03 21:05:00 19 /min Ronnie Mcfarland Oxygen saturation in Arterial blood by Pulse oximetry 2018-08 21:05:00 99 /min Ronnie Mcfarland Body height 2019-07-03 15:20:00 167.6 cm Ronnie Mcfarland Body weight 2019-07-03 15:20:00 81.647 kg Ronnie Mcfarland BMI 2019-07-03 15:20:00 29.05 kg/m2 Ronnie Mcfarland Procedures Procedure Date / Time Performed Performing Clinician [facility] e PERIPHERAL VASCULAR REPORT - SCAN 2019-10-19 21:22:21 Provid er, Default Scanning [facility] ECHOCARDIOGRAM REPORT - SCAN 2019-10-19 21:20:34 Provider, Leiaau lt Scanning [facility] TRANSFUSION SERVICE REPORT - SCAN 2019-10-19 18:05:20 Provid er, Default Scanning [facility] STRESS ECHO 2019-10-18 11:08:14 Diana Dobbs [facility] 2D ECHO W/ DOPPLER (CW/PW/COLOR) 2019-10-18 10:28:46 Avelino Dobbs [facility] TREADMILL TOLERANCE(NON-NUCLEAR TREADMILL) 2019-10-18 10:00: 09 Unknown, Hl7 Doctor [facility] ECG 12-LEAD 2019-10-18 09:18:16 Diana Dobbs [facility] XR CHEST 2 VIEWS 2019-10-18 08:56:00 Diana Dobbs [facility] US ABDOMEN COMPLETE 2019-10-18 08:07:00 Diana Dobbs [facility] I [facility] PSA 2019-10-18 07:13:00 Diana Dobbs [facility] LIPID PANEL 2019-10-18 07:13:00 Diana Dobbs [facility] HEMOGLOBIN A1C 2019-10-18 07:13:00 Diana Dobbs [facility] BLOOD TYPING, AUTOMATED 2019-10-18 07:13:00 Diana Dobbs [facility] TRANSFUSION SERVICE REPORT - SCAN 2019-09-28 18:07:11 Provid er, Default Scanning [facility] HEPATITIS B SURFACE ANTIBODY 2019-09-27 11:50:00 TimVic zavaleta [facility] HEPATITIS B SURFACE ANTIGEN 2019-09-27 11:50:00 TimminCassie hebert [facility] HEPATITIS B CORE ANTIBODY, IGM 2019-09-27 11:50:00 TimminsLory [facility] HEPATITIS C ANTIBODY 2019-09-27 11:50:00 TimminsDiana [facility] HIV-1 ANTIGEN WITH HIV-1/2 ANTIBODY 2019-09-27 11:50:00 TimDiana zavaleta [facility] PTH, INTACT 2019-09-27 11:50:00 TimminDiana hebert [facility] T SPOT TB 2019-09-27 11:50:00 TimDiana zavaleta [facility] HLA TYPING CI 2019-09-27 11:50:00 TimminsDiana Ashley [facility] HLA TYPING CII 2019-09-27 11:50:00 [facility]DIRECT DONNIE 2019-09-27 11:50:00 TimminLory hebert Ashley [facility] BLOOD TYPING, AUTOMATED 2019-09-27 11:50:00 TimDiana zavaleta [facility] CYTOMEGALOVIRUS ANTIBODY, IGG 2019-09-27 11:49:00 TimminsEliz Ashley [facility] CYTOMEGALOVIRUS ANTIBODY, IGM 2019-09-27 11:49:00 TimminEliz hebert [facility] COMPREHENSIVE METABOLIC PANEL 2019-09-27 11:49:00 TimminEliz hebert [facility] EBV ANTIBODY, IGM 2019-09-27 11:49:00 TimminDiana hebert [facility] GAMMA GLUTAMYL TRANSFERASE (GGT) 2019-09-27 11:49:00 TimminAvelino hebert [facility] LACTATE DEHYDROGENASE (LDH) 2019-09-27 11:49:00 TimCassie zavaleta [facility] PHOSPHORUS 2019-09-27 11:49:00 Timminemilee [facility] PT/APTT 2019-09-27 11:49:00 Timminemilee [facility] RPR 2019-09-27 11:49:00 [facility] URIC ACID 2019-09-27 11:49:00 Timmins [facility] VARICELLA ZOSTER ANTIBODY, IGG 2019-09-27 11:49:00 TimLory [facility]etaVA [facility] FLOW PRA CLASS I WITH REFLEX TO ANTIBODY SPECIFICITY 2019-09 11:49:00 [facility] FLOW PRA CLASS II WITH REFLEX TO ANTIBODY SPECIFICITY 09-27 11:49:00 [facility] RPR TITER 2019-09-27 11:49:00 [facility]remilee [facility] TREPONEMA PALLIDUM - SYPHILIS IGG 2019-09-27 11:49:00 TimCrissy zavaletaVA [facility] AB SPECIFICITY CLASS I 2019-09-27 11:49:00 [facility] CBC W/PLT COUNT & AUTO DIFFERENTIAL 2019-09-27 11:49:00 [facility] center[facility] URINALYSIS SCREEN AND MICROSCOPY, WITH REFLEX TO CULTURE 201 05-03-11 15:21:00 Matt Etienne HC COMPLETE BLD COUNT W/AUTO DIFF 2019-07-03 15:19:00 Rocio Etienne COMPREHENSIVE METABOLIC PANEL 2019-07-03 15:19:00 Matt Etienne LIPASE LEVEL 2019-07-03 15:19:00 Matt Etienne ESTIMATED GFR 2019-07-03 15:19:00 Matt Etienne [facility] Planned Activity Planned Date Details Comments Source Future Scheduled Test 2021-06-15 00:00:00 PNEUMOCOCCAL VACCI NE 2-64 YEARS AT RISK (3 of 3 - PPSV23) [code = PNEUMOCOCCAL VACCINE 2-64 YEARS AT RISK (3 of 3 - PPSV23)] [facility] 2020-04-23 00:00:00 INFLUENZA VACCINE (#1) [code = INFLUENZA VACCINE (#1)] [facility] Test 2020-04-17 00:00:00 Hemoglobin A1c josefina surement (procedure) [code = 45875791] [facility] Test 2020-03-23 00:00:00 INFLUENZA VACCINE [code = INFLUENZA VACCINE] [facility] Scheduled Test 2019-08-24 00:00:00 MEDICARE ANNUAL WE LLNESS (YEAR 2 or FIRST YEAR if no IPPE) [code = MEDICARE ANNUAL WELLNESS (YEAR 2 or FIRST YEAR if no IPPE)] [facility] Test 2017-02-17 00:00:00 SHINGLES VACCINES (#2) [code = SHINGLES VACCINES (#2)] [facility] Scheduled Test 2007 00:00:00 COLONOSCOPY SCREEN ING [code = COLONOSCOPY SCREENING] [facility] Scheduled Test 1967 00:00:00 DIABETIC FOOT EXAM [code = DIABETIC FOOT EXAM] [facility] Scheduled Test 1967 00:00:00 URINE MICROALBUMIN [code = URINE MICROALBUMIN] [facility] Scheduled Test 1967 00:00:00 DIABETIC EYE EXAM [code = DIABETIC EYE EXAM] [facility] 1967 00:00:00 Diabetic foot exam ination (regime/therapy) [code = 829524756] [facility] Future Scheduled Test 1967 00:00:00 Urine screening fo r protein (procedure) [code = 572453860] [facility] Future Scheduled Test 1957 00:00:00 DIABETIC RETINAL E YE EXAM [code = DIABETIC RETINAL EYE EXAM] [facility] Scheduled Test 1957 00:00:00 Screening for olivia gnsyl neoplasm of colon (procedure) [code = 311450422] [facility] Encounters Start Date/Time End Date/Time Encounter Type Admission Type [facility] Care Department Encounter ID Source 2019-07-03 00:00:00 2019-07-03 00:00:00 Emergency [facility]LITOS GUZM[facility]N [facility] [id number] [facility] Results Test Description Test Time Test Comments Results Result Comments Source FOOT LEFT COMPLETE 2020-03-19 14:45:00 [facility] [address] [address] Patient Name: NIKO BUSTILLO JR MR #: [id number] : 1955 Age/Sex: 64/M Req #: [id number] Adm Physician: EARNEST WEBBER MD Ordered by: SUN EDMONDS MD Report #: [id number] Location: [facility] Room/Bed: [place] [address] Procedure: [id number] DX/FOOT LEFT COMPLETE Exam Date: 03/19/20 Exam Time: 1409 REPORT STATUS: Signed EXAMINATION: FOOT LEFT COMPLETE INDICATION: Plantar foot ulcer COMPARISON: None FINDINGS: AP, lateral and oblique radiographs of the left foot were obtained. No acute fracture or dislocation. Alignment is anatomic. Scattered degenerative changes. Small plantar calcaneal spur. Soft tissues appear unremarkable. No specific radiographic evidence of osteomyelitis. Atherosclerotic arterial calcifications. IMPRESSION: No acute osseous injury. No specific radiographic evidence of osteomyelitis. Signed by: Scott Douglas MD on 03/19/2020 2:47 PM Dictated By: SCOTT DOUGLAS MD [id number] Transcribed By: GEOVANY on 03/19/20 1447 COPY TO: SUN EDMONDS MD CHEST SINGLE (PORTABLE) 2020-03-19 12:54:[address] [place] [address] Patient Name: NIKO BUSTILLO JR MR #: [id number] : 1955 Age/Sex: 64/M Req #: [id number] Adm Physician: Ordered by: SUN EDMONDS MD Report #: [id number] Location: ER Room/Bed: Procedure: [id number] DX/CHEST SINGLE (PORTABLE) Exam Date: Exam Time: REPORT STATUS: Signed EXAMINATION: CHEST SINGLE (PORTABLE) INDICATION: Fever COMPARISON: None FINDINGS: LINES/TUBES:Right IJ tunneled hemodialysis catheter terminates in the superior vena cava. EKG leads overlie the chest. LUNGS:The lungs are well-inflated. No focal consolidation or pulmonary edema. PLEURA:No pleural effusion or pneumothorax. MEDIASTINUM:The cardiomediastinal silhouette appears normal in size and shape. Atherosclerotic calcifications of the thoracic aorta. BONES/SOFT TISSUES:No acute osseous injury. ABDOMEN:No free air under the diaphragm. IMPRESSION: No focal pneumonia or pulmonary edema. Signed by: Scott Douglas MD on 03/19/2020 12:54 PM Dictated By: SCOTT DOUGLAS MD [id number] Transcribed By: GEOVANY on 03/19/20 1250 COPY TO: SUN EDMONDS MD Treadmill tolerance(Non-Nuclear Treadmill) 2019-10-24 16:44:12 Interface, External Ris In 10/24/2019 4:44 PM CSTProtocol Name DOBUT TM-1 Time In Exercise Phase 00:12:15 Max. Systolic BP 206 mmHgMax Diastolic BP 78 mmHgMax Heart Rate 157 BPMMax Predicted Heart Rate 158 BPMReason For Termination Arrhythmias Reason for Test ESRD Target HR Formula (220 - Age)*100% Arrhythmias Sustained Ventricular Tachycardia Resting ECG Normal sinus rhythm ST Changes No Significant Changes Overall Impression Abnormal stress ECG Chest Pain none HR Response To Exercise appropriate BP Response To Exercise APPROPRIATE RESPONSE Functional Capacity Indeterminate due to pharmacologic stress NIFEDIPINEmetoprololTest suspended d/t VT The Ventricular Tachycardia was sustained, but self-terminated. Confirmed by MD MAUREEN, ADELA ([id number]) on 10/24/2019 4:44:04 PM [facility] r ECG 12 lead 2019-10-19 11:06:53 Interface, E xternal Ris In - 10/19/2019 11:06 AM CSTVentricular Rate 69 BPMAtrial Rate 69 BPMP-R Interval 282 msQRS Duration 100 msQ-T Interval 442 msQTC Calculation(Bazett) 473 msP [place] 71 degreesR [place] - 43 degreesT [place] 60 degreesSinus rhythm with 1st degree A-V blockLeft axis deviationAbnormal ECGNo previous ECGs availableConfirmed by MD Guera, Tacho ([id number]) on 10/19/2019 11:06:49 AM [facility] 2D Echo W/Doppler(CW/PW/Color) 2019-10-19 07:21:02 Ejection FractionSLEH ECHO HEARTLAB MKCKESSON CPACSInterface, External Ris In - 10/19/2019 7:21 AM CSTTransthoracic Echocardiography Report (TTE) Demographics Patient Name NIKO BUSTILLO Date of Study 10/18/2019 Gender Male Visit Number [id number] Race Unknown Room Number Number Date of 1955 Referring Physician Dilia Aparicio Age 64 year(s) Home Day Care Provider Edgar Archibald Interpreting Holley Briceno, Physician Fellow Keaton Morocho MD Procedure Type of Study TTE procedure:2DECHO W DOPPLER(CW/PW/COLOR) (Routine) Indications:Pre-surgical evaluation of organ transplant.Clinical HistoryDMESRDHTNHLDHeight: 66 inches Weight: 79.83 kg (176 lbs) BSA: 1.89 m^2 BMI: 28.41 kg/m^2HR: 65 bpm BP: 195/89 mmHg Summary 1. Normal LV size and function. All segments contract normally. LV EF 2. Normal RV size and function. 3. Grade 1 diastolic dysfunction (impaired relaxation and low-normal LA pressure). 4. No significant pericardial effusion is visualized. Previous Study No prior studies available for comparison. Signature Findings Technical Quality: Technically adequate exam. Rhythm/BP Regular sinus rhythm during the exam. Left Ventricle The left ventricle is chamber size (by vol index) is normal (male - LVED vol - 34-74ml/m2). LV septal thickness is normal (0.6-1.1cm). LV posterior wall thickness is mildly increased (1.2-1.4cm) . Borderline concentric LV hypertrophy. Grade 1 diastolic dysfunction (impaired relaxation and low-normal LA pressure). Estimated LVEF by qualitative assessment is normal (>60%) . Left Atrium LA size is normal . Right Ventricle The right ventricular chamber size and systolic function are within normal li mits. Right Atrium RA size is normal. Atrial Septum Normal interatrial septum by available views. Aortic Valve Normal AoV structure There is mild aortic stenosis. Mitral Valve Mild mitral annular calcification. No significant mitral regurgitation. Tricuspid Valve TV structure is normal. A trace of tricuspid regurgitation. Estimated peak systolic PA pressure is 20-25 mmHg . Pulmonic Valve Normal PV structure and function. Aorta Aortic root size (SInus of Valsalva diameter) is normal . Pericardium No significant pericardial effusion is visualized. IVC/SVC/PA/PV/Pleural The estimated RA pressure by IVC dynamics 5-10mmHg . Chambers/Structures Left Atrium LA Volume: 39.88 ml LA Area: 15.32 cm^2 LA Vol. Index: 21 ml/m^2 Left Ventricle LVIDd: 4.19 cm LVEDV:84.33 ml LV Septum Diastolic: 1.29 cm LV Septum Systolic: 1.11 cm LV PW Diastolic: 1.29 cm LV Length: 9.03 cm LV PW Systolic: 1.13 cm LVEDV Severino's:77.83 ml LVEDVI: 41 ml/m^2 LVESV Severino's:25.42 ml LVESVI: 13 ml/m^2 LVEF Severino's: 67.3 % LVOT Diameter: 2.12 cm Right Ventricle RV Diast Dim.: 2.73 cm Aorta Ao Root S of Petra.: 3.04 cm Ascending Aorta: 3.29 cm Doppler/Quantitative Measurements Mitral Valve MV Peak E-Wave: 0.77 m/s MV Peak A-Wave: 0.86 m/s E/A Ratio: 0.9 Mean Velocity: 0.67 m/s Peak Gradient: 2.38 mmHg Mean Gradient: 1.98 mmHg Deceleration Time: 272.9 msec Area (continuity): 2.08 cm^2 MV VTI: 36.1 cm MV Og. Peak: 1.02 m/s Tissue Doppler E' Septal Velocity: 0.11 m/s E/E': 6.87 E' Lateral Velocity: 0.1 m/s Aortic Valve Peak Velocity: 1.47 m/s Mean Velocity: 0.95 m/s Peak Gradient: 8.62 mmHg Mean Gradient: 4.14 mmHg AV Area (continuity): 2.12 cm^2 AV VTI: 35.41 cm AV DVI: 0.6 LVOT Peak Velocity: 0.89 m/s Peak Gradient: 3.13 mmHg Mean Velocity: 0.58 m/s Mean Gradient: 1.56 mmHg LVOT Diameter: 2.12 cm LVOT VTI: 21.25 cm LVOT Area: 3.53 cm^2 LVOT SV:74.97 ml LVOT CO: 4.87 l/min LVOT CI: 2.58 l/min/m^2 RVOT RVOT VTI (PW): 23.72 cm [facility] Stress Echo With Tracing 2019-10-19 07:14:29 Eje ction FractionSLEH ECHO HEARTLAB CKESSON CPACSInterface, External Ris In - 10/19/2019 7:14 AM CSTStress Echocardiography Report Demographics Patient Name NIKO BUSTILLO Date of Study 10/18/2019 Gender Male Visit Number [id number] Race Unknown Room Number Number Date of 1955 Referring Physician Dilia Aparicio Age 64 year(s) Home Day Care Provider Edgar Archibald Interpreting Holley Briceno, Physician Fellow Keaton Morocho MD Procedure Type of Study Stress procedure:STRESS(TMT)ECHO W/TMT TRACING (Rout ine) Indications:Pre-surgical evaluation of organ transplant.Clinical HistoryDMESRDHTNHLDContrast Medium: Definity.Height: 66 inches Weight: 79.83 kg (176 lbs) BSA: 1.89 m^2 BMI: 28.41 kg/m^2HR: 65 bpm BP: 195/89 mmHg Rest ECG Sinus Rhythm. 1st Degree AV-block. Stress Stress Type: Pharmacologic Peak HR: 100 bpm HR BP Product: Peak BP: 206/78 mmHg Predicted HR: 158 bpm % of predicted HR: 63 Test Duration: 4:31 min Stress Interpretation Target HR was achieved (>85% peak predicted HR). All segments contract normally at baseline and at all stages of stress. Echocardi ographically normal stress echo. ECG portion notable for hemodynamically stable, asymptomatic sustained VT with rate up to 190s. Results ECG no significant ST- T wave changes. Patient developed hemodynamically stable, sustained VT lasting up to 1 min w/ HR up to 190. Arrhythmias sustained ventricular tachycardia Symptoms No symptoms during stress test. Stress Protocol: Pharmacologic - Dobutamine+-- ---+-----+------+ +------+-----+--------+--+--------+----+------+!Stage !Time !Dosage!Other !Dosage!Heart!Blood !CP!Pain !Pain!Pain !!# ! ! !Medication! !Rate !Pressure! !Location!Type!Action!+-----+-----+------+ +------+-----+--------+--+-- ------+----+------+!1.0 !03:21!10.00 ! ! !88 !206/78 ! ! ! ! !+-----+-----+------+-- --------+------+-----+--------+--+--------+----+------+!2.0 !04:25!20.00 ! ! !100 !181/61 ! ! ! ! !+-----+-----+------+ +------+-----+--------+--+--------+----+ ------+!3.0 !04:31!30.00 ! ! !96 !160/52 ! ! ! ! !+-----+-----+------+ +------+-----+--------+--+--------+----+------+ Summary This is a negative Echocardiographic Stress Test. Signature [facility] Hemoglobin A1c 2019-10-18 11:16:00 Test Item Hemoglobin A1C (test code = 4548-4) 7.7 % 4.3-6.1 H Lab Interpretation (test code = 52136-7) Abnormal [facility] [id number] 11:16:00* Test Item Value Reference Range Interpretation Comments HEMOGLOBIN A1C (CHRISTA) (test code = 368) 7.7 % 4.3-6.1 H RAD, CHEST, 2 [id number] 10:01:00Reason for Exam:->Pre kidney transplant evaluation.FINAL REPORT INDICATION: Pre kidney transplant evaluation. COMPARISON: None TECHNIQUE: Frontal and lateral views of the chest. FINDINGS: Lungs and pleura: Clear lungs. No effusion.Heart and mediastinum: Normal heart size. Unremarkable mediastinal contours.Osseous structures: No acute abnormality.Additional findings: Right IJ dual-lumen central venous catheter terminates over the superior vena cava. IMPRESSION: No acute intrathoracic abnormality. Signed: JR Restrepo Robert MDReport Verified Date/Time: 10/18/2019 10:01:55 Reading Location: [facility] Radiology Reading Room chest 2 [id number] 10:01:00Interface, External Ris In - 10/18/2019 10:04 AM CSTFINAL REPORT INDICATION: Pre kidney transplant evaluation. COMPARISON: None TECHNIQUE: Frontal and lateral views of the chest. FINDINGS: Lungs and pleura: Clear lungs. No effusion.Heart and mediastinum: Normal heart size. Unremarkable mediastinal contours.Osseous structures: No acute abnormality.Additional findings: Right IJ dual-lumen central venous catheter terminates over the superior vena cava. IMPRESSION: No acute intrathoracic abnormality. Signed: JR Restrepo Robert MDReport Verified Date/Time: 10/18/2019 10:01:55 Reading Location: [facility] Radiology Reading Room [facility], COMPLETE 2019-10-18 09:36:00Reason for Exam:->Kidney transplant evaluation; comment on number of renal cysts on each side to meet criteria for Acquired Cystic Kidney DiseaseFINAL REPORT Abdominal ultrasound dated 10/18/2019 History: Kidney transplant evaluation. COMPARISON: None Findings: Liver is normal in size and echogenicity. The liver measures 14 cm in length. No focal lesion is noted in the liver. Spleen is normal in size, 8.8 cm in length, without focal abnormality. Gallbladder is normal in appearance. No gallstone or biliary dilatation seen. Common bile duct measures four mm in diameter. Main portal vein measures 1.2 cm in diameter. Pancreas is normal in appearance. Right kidney measures 9.8 x 5.8 x 5.8 cm. Left kidney measures 9.8 x 5.4 x 4.6 cm. Echogenicity of both kidneys is normal. There is a 1.1 x 0.7 x 0.8 cm cyst in the mid region of the left kidney. No hydronephrosis, solid mass, or calculus seen. No ascites is present in the abdomen. Abdominal aorta is normal in caliber. IVC and hepatic veins are patent. Impression: Single 1.1 cm left renal cyst, otherwise unremarkable. Signed: Pelon Ellisoneport Verified Date/Time: 10/18/2019 09:36:15 Reading Location: [address] Radiology Reading Room abdomen [id number] 09:36:00Interface, External Ris In - 10/18/2019 9:38 AM CSTFINAL REPORT Abdominal ultrasound dated 10/18/2019 History: Kidney transplant evaluation. COMPARISON: None Findings: Liver is normal in size and echogenicity. The liver measures 14 cm in length. No focal lesion is noted in the liver. Spleen is normal in size, 8.8 cm in length, without focal abnormality. Gallbladder is normal in appearance. No gallstone or biliary dilatation seen. Common bile duct measures four mm in diameter. Main portal vein measures 1.2 cm in diameter. Pancreas is normal in appearance. Right kidney measures 9.8 x 5.8 x 5.8 cm. Left kidney measures 9.8 x 5.4 x 4.6 cm. Echogenicity of both kidneys is normal. There is a 1.1 x 0.7 x 0.8 cm cyst in the mid region of the left kidney. No hydronephrosis, solid mass, or calculus seen. No ascites is present in the abdomen. Abdominal aorta is normal in caliber. IVC and hepatic veins are patent. Impression: Single 1.1 cm left renal cyst, otherwise unremarkable. Signed: Pelon Ellison MDReport Verified Date/Time: 10/18/2019 09:36:15 Reading Location: [address] Radiology Reading Room [facility]PSA[facility] 08:48:00* Test Item Value Reference Range Interpretation Comments PSA (test code = 2857-1) 0.3 ng/mL 0-4 VALENTÍN (test code = VALENTÍN) Zmt Operator ID - DB Lab Interpretation (test code = 10163-2) Normal [facility] HospitalPSA2020-[facility] 08:48:00* Test Item Value Reference Range Interpretation Comments PROSTATE SPECIFIC ANTIGEN (BEAKER) (test code = 844) 0.3 ng/mL 0 .0-4.0 Zmt Operator ID - DBBlood typing, [id number] 07:58:00* Test Item Value Reference Range Interpretation Comments ABO/RH AUTOMATED (BEAKER) (test code = 2260) O POSITIVE [facility] HospitalLipid [id number] 07:56:00* Test Item Value Reference Range Interpretation Comments Triglycerides (test code = 2571-8) 120 mg/dL Cholesterol (test code = 2093-3) 105 mg/dL HDL (test code = 2085-9) 32 mg/dL LDL Calculated (test code = 07466-1) 49 mg/dL VALENTÍN (test code = VALENTÍN) Triglyceride Reference Range : Low Risk <150 Borderline 150-199 High Risk 200-499 Very High Risk >=500 Cholesterol Reference Range: Low Risk <200 Borderline 200-239 High Risk >240 HDL Cholesterol Reference Range: Low Risk >=60 High Risk <40 LDL Cholesterol Reference Range: Optimal <100 Near Optimal 100-129 Borderline 130-159 High 160-189 Very High >=190 Zmt Operator ID Vin Florian [facility] HospitalLIPID [id number] 07:56:00* Test Item Value Reference Range Interpretation Comments TRIGLYCERIDES (BEAKER) (test code = 540) 120 mg/dL CHOLESTEROL (SITAAKER) (test code = 631) 105 mg/dL HDL CHOLESTEROL (SITAAKER) (test code = 976) 32 mg/dL LDL CHOLESTEROL CALCULATED (PAWAN) (test code = 633) 49 mg/dL Triglyceride Reference Range: Low Risk <150 Borderline 150-199 High Risk 200-499 Very High Risk >=500Cholesterol Reference Range: Low Risk <200 Borderline 200-239 High Risk >240HDL Cholesterol Reference Range: Low Risk >=60 High Risk <40LDL Cholesterol Reference Range: Optimal <100 Near Optimal 100-129 Borderline 130-159 High 160-189 Very High >=190 Zmt Operator ANGELLA CHINLA TYPING [id number] 22:51:00* Test Item Value Reference Range Interpretation Comments HLA-A AG1 (test code = 3466) 2 HLA-A AG2 (test code = 3467) 3 HLA-B AG1 (test code = 3468) 35 HLA-B AG2 (test code = 3469) 35 HLA-C AG1 (test code = 3470) 4 HLA-C AG2 (test code = 3471) 4 HLA-B BW1 (test code = 3234) 6 HLA-B BW2 (test code = 3235) 6 VALENTÍN (test code = VALENTÍN) Disclaimer: This test was de veloped and its performance characteristics determined by the [facility] Laboratory. It has not been cleared or approved by the U.S. Food and Drug Administration. The FDA has determined that such clearance or approval is not necessary. This test is used for clinical purposes. It should not be regarded as investigational or for research. This laboratory is certified under the Clinical Laboratory Improvement Amendments of 1988 (CLIA-88) as qualified to perform high complexity clinical laboratory testing. [facility] HospitalHLA TYPING [id number] 22:51:00* Test Item Value Reference Range Interpretation Comments HLA-DR AG1 (test code = 3465) 10 HLA-DR AG2 (test code = 3472) 1 HLA-DQA1 AG 1-1 (test code = 3463) 1 HLA-DQA1 AG 1-2 (test code = 3464) 1 HLA-DQB1 AG 1-1 (test code = 3244) 5 HLA-DQB1 AG 1-2 (test code = 3245) 5 HLA-DPA1 AG 1-1 (test code = 3246) 2 HLA-DPA1 AG 1-2 (test code = 3247) 2 HLA-DPB1 AG 1-1 (test code = 3248) 10:01 HLA-DPB1 AG 1-2 (test code = 3249) 17:01 VALENTÍN (test code = VALENTÍN) Disclaimer: This test was de veloped and its performance characteristics determined by the [facility] Laboratory. It has not been cleared or approved by the U.S. Food and Drug Administration. The FDA has determined that such clearance or approval is not necessary. This test is used for clinical purposes. It should not be regarded as investigational or for research. This laboratory is certified under the Clinical Laboratory Improvement Amendments of 1988 (CLIA-88) as qualified to perform high complexity clinical laboratory testing. [facility]- XR RIBS UNI W/CXR 3+V [id number] 19:52:00 FAX: Myles Galarza [place]: [place] St: REG Name: NIKO ROYAL JR [facility] FSED : [birth year] 59 Age/S: 64/M [address] [facility] [address] Unit #: [id number] Loc: [address] Phys: Myles Galarza MD [place], [place] [address] Acct: [id number] Dis Date: Status: REG ER PHONE #: Exam Date: 10/06/2019 6693 FAX #: Reason: FALL, RIGHT RIB PAIN EXAMS: CPT CODE: [id number] XR RIBS UNI W/CXR 3+V RT [id number] EXAM: Right-sided rib series, 4 vi ews; INFORMATION: Right-sided rib pain after fall; F INDINGS: There is a slightly displaced fracture of the anterior portion of the seventh rib on the right. There is also irregular configuration of the anterior lateral aspect of the 10th rib. This could be due to a no ndisplaced fracture or potentially an old fracture. The remainder of the ribs is intact. There is no evidence of pulmonary contusion or of a p neumothorax. IMPRESSION: 1. Acute fracture of the sevent h rib on the right. 2. Is a nondisplaced acute or chronic fracture of th e 10th rib on the right. Location code: [facility] at 1949 Reported and signed by: Lamin Mooney M.D. CC: Myles Galarza MD Technologist: Jeannine Biswas Trnscrd Date/Time/By: 10/06/2019 (1949) : By: MarinoGRW Orig Print D/T: S: 10/06/2019 (1953) PAGE 1 Signed Report HERNIA [id number] 14:34:00 RUN DATE: 10/05/19 [facility] PAGE 1 RUN TIME: 1434 Specimen Inqui ry RUN USER: INTERFACE PATIENT: NIKO BUSTILLO JR ACCT #: [id number] LOC: ASYA U #: [id number] AGE/SX: 64/M ROOM: RE10/04/19REG DR: Randall Curry MD : 59 BED: DIS: STATUS: [facility] TLOC: SPEC #: [id number] RECD: 10/04/19 STATUS: [facility] #: [id number] KARSTEN: 10/04/19- SUBM DR: Randall Curry MD ENTERED: 10/04/19 SP TYPE: HERNIA SAC OTHR DR: Herman Mccann MD ORDERED: GROSS COPIES TO: Randall Curry MD [address] [place] [address] [place] [id number] [id number] PROCEDURES: GROSS (10/05/19-1106) TISS UES: 1. INGUINAL REGION, NOS - RIGHT LIPOMA 2. INGUINAL REGION , NOS - LEFT LIPOMA CLINICAL HISTORY COLLECTION DATE: 10/04/19 FINAL DIAGNOSIS Right inguinal lipoma, inguinal hernia repair: ADIPOSE TISSUE CONSISTENT WITH HERNIA CONTENTS Left inguinal lipoma, ing uinal hernia repair: ADIPOSE TISSUE CONSISTENT WITH HERNIA CONTENTS DMW/sm D [id number] MACROSCOPIC Specimen (1) is received in [facility] labeled with the patient's name, "right lipoma" and consists of a porti on of yellow fatty tissue with smooth rounded margins that measures 11 cm in l ength with a diameter ranging from 1.5 up to 3.8 cm. The cut surface is homo genous. Cardiovascular Tech tissue is submitted for histologic evaluation as (1). CONTINUED ON NEXT PAGE RUN DATE : 10/05/19 [facility] Lab PAGE 2 RUN TIME: 1434 Specimen Inquiry RUN USER: INTERFACE SPEC #: [id number] PATIENT: NIKO BUSTILLO JR #V [id number] (Continued) MACROSCOPIC (Continue d) Specimen (2) is received in formalin labeled with the patient's name, "left lipoma" and consists of a portion of yellow fatty tissue with smooth rou nded contours measuring 7 cm in length with diameters up to 1.5 cm. The cut s urface is homogenous and yellow with no areas of hemorrhage and necrosis. R epresentative tissue is submitted as (2). GROSS PERFORMED AT [facility] [address] [place] [address], [place] [address] (p)[phone] MICROSCOPIC All of the stains, i ncluding any controls performed, stain appropriately. MICROSCOPIC PERFOR MED AT [facility] [address] [place] [address] (P)[phone] PERFORMING SITE Diagnosis performed at: [facility], [place] [address] [place] [address] Signed SIGNATURE ON FILE Sami Nunez MD 10/05/19 1434 END OF REPORT AB SPECIFICITY CLASS [id number] 11:01:00* Test Item Value Reference Range Interpretation Comments AB Specificity Class I (test code = 3457) NO CLASS I A NTIBODY DETECTED WITH MFIs > 4000 VALENTÍN (test code = VALENTÍN) Disclaimer: This test was de veloped and its performance characteristics determined by the [facility] Laboratory. It has not been cleared or approved by the U.S. Food and Drug Administration. The FDA has determined that such clearance or approval is not necessary. This test is used for clinical purposes. It should not be regarded as investigational or for research. This laboratory is certified under the Clinical Laboratory Improvement Amendments of 1988 (CLIA-88) as qualified to perform high complexity clinical laboratory testing. [facility] HospitalGLUBED2020-02-12 10:27:00* Test Item Value Reference Range Interpretation Comments GLUBED (test code = GLUBED) 180 mg/dL 74-106 H Performed by certified plastic machine operator at [facility] [id number] 07:57:00* Test Item Value Reference Range Interpretation Comments POTASSIUM (test code = K) 3.8 mmol/L 3.5-5.1 N [id number] 07:49:00* Test Item Value Reference Range Interpretation Comments GLUBED (test code = GLUBED) 204 mg/dL 74-106 H Performed by certified plastic machine operator at [facility] FLOW PRA CLASS I WITH REFLEX TO ANTIBODY [id number] 11:44:00* Test Item Value Reference Range Interpretation Comments Flow Class I Percent Positive (test code = 3229) 10 VALENTÍN (test code = VALENTÍN) Disclaimer: This test was de veloped and its performance characteristics determined by the [facility] Laboratory. It has not been cleared or approved by the U.S. Food and Drug Administration. The FDA has determined that such clearance or approval is not necessary. This test is used for clinical purposes. It should not be regarded as investigational or for research. This laboratory is certified under the Clinical Laboratory Improvement Amendments of 1988 (CLIA-88) as qualified to perform high complexity clinical laboratory testing. [facility] HospitalFLOW PRA CLASS II WITH REFLEX TO ANTIBODY [id number] 11:44:00* Test Item Value Reference Range Interpretation Comments Flow Class II Percent Positive (test code = 3231) 0 VALENTÍN (test code = VALENTÍN) Disclaimer: This test was de veloped and its performance characteristics determined by the [facility] Laboratory. It has not been cleared or approved by the U.S. Food and Drug Administration. The FDA has determined that such clearance or approval is not necessary. This test is used for clinical purposes. It should not be regarded as investigational or for research. This laboratory is certified under the Clinical Laboratory Improvement Amendments of 1988 (CLIA-88) as qualified to perform high complexity clinical laboratory testing. [facility] HospitalT Spot [id number] 19:29:00* Test Item Value Reference Range Interpretation Comments T-Spot TB (test code = 96996-5) Negative Neg Ctrl Spot Count (test code = 95611-4) 0 Panel A Spot (test code = 30206-3) 0 Panel B Spot (test code = 23323-7) [address] (test code = 41006-5) 0 Scan Result (test code = 9646547) [facility] HospitalBASIC METABOLIC [id number] 12:11:00* Test Item Value Reference Range Interpretation Comments SODIUM (test code = NA) 135 mmol/L 136-145 L POTASSIUM (test code = K) 3.5 mmol/L 3.5-5.1 N CHLORIDE (test code = CL) 97.0 mmol/L 98-107 L CARBON DIOXIDE (test code = CO2) 33.0 mmol/L 21-32 H ANION GAP (test code = GAP) 8.5 10-20 L GLUCOSE (test code = GLU) 244 mg/dL 74-106 H BLOOD UREA NITROGEN (test code = BUN) 29 mg/dL 7-18 H GLOMERULAR FILTRATION RATE (test code = GFR) 16 mL/min >=60 Estimated GFR by using Modified MDRD formula.Chronic kidney disease is defined as either kidney damageor GFR <60 mL/min/1.73 m2 for >3 months. CREATININE (test code = CREAT) 3.90 mg/dL 0.7-1.3 H BUN/CREATININE RATIO (test code = BUN/CREA) 7.4 10-20 L CALCIUM (test code = CA) 7.5 mg/dL 8.5-10.1 L CBC W/AUTO [id number] 11:39:00* Test Item Value Reference Range Interpretation Comments WHITE BLOOD CELL (test code = WBC) 8.7 K/mm3 4.5-12.5 N RED BLOOD CELL (test code = RBC) 3.90 mill/mm3 4.0-5.8 L HEMOGLOBIN (test code = HGB) 10.7 gram/dL 13.0-17.5 L HEMATOCRIT (test code = HCT) 34.0 % 42.0-52.0 L MEAN CELL VOLUME (test code = MCV) 87.2 fL 80-98 N MEAN CELL HGB (test code = MCH) 27.4 picogram 27.0-33.0 N MEAN CELL HGB CONCETRATION (test code = MCHC) 31.5 gram/dL 33.0-36. 0 L RED CELL DISTRIBUTION WIDTH (test code = RDW) 13.6 % 11.6-16. 2 N RED CELL DISTRIBUTION WIDTH SD (test code = RDW-SD) 41.8 fL 37 .0-51.0 N PLATELET COUNT (test code = PLT) 234 K/mm3 150-450 N MEAN PLATELET VOLUME (test code = MPV) 11.2 fL 6.7-11.0 H NEUTROPHIL % (test code = NT%) 60.4 % 39.0-69.0 N IMMATURE GRANULOCYTE % (test code = IG%) 0.3 % 0.0-5.0 N LYMPHOCYTE % (test code = LY%) 27.7 % 25.0-55.0 N MONOCYTE % (test code = MO%) 8.4 % 0.0-10.0 N EOSINOPHIL % (test code = EO%) 2.9 % 0.0-5.0 N BASOPHIL % (test code = BA%) 0.3 % 0.0-1.0 N NUCLEATED RBC % (test code = NRBC%) 0.0 % 0-0 N NEUTROPHIL # (test code = NT#) 5.21 K/mm3 1.8-7.7 N IMMATURE GRANULOCYTE # (test code = IG#) 0.03 x10 3/uL 0-0.03 N LYMPHOCYTE # (test code = LY#) 2.40 K/mm3 1.0-5.0 N MONOCYTE # (test code = MO#) 0.73 K/mm3 0-0.8 N EOSINOPHIL # (test code = EO#) 0.25 K/mm3 0.0-0.5 N BASOPHIL # (test code = BA#) 0.03 K/mm3 0.0-0.2 N NUCLEATED RBC # (test code = NRBC#) 0.00 K/mm3 0.0-0.1 N Cytomegalovirus antibody, [id number] 04:11:00* Test Item Value Reference Range Interpretation Comments CYTOMEGALOVIRUS, IGG (test code = 3429) Positive Negative, Equi vocal A VALENTÍN (test code = VALENTÍN) CMV IgG Result Interpretatio n: </= 0.8 Al Negative 0.9- 1.0 Al Equivocal >/=1.1 Al Positive Lab Interpretation (test code = 39576-7) Abnormal [facility] HospitalEBV-VCA antibody, [id number] 04:11:00* Test Item Value Reference Range Interpretation Comments GUME MORALES VIRAL CAPSID ANTIGEN IGG (test code = 3415) Pos itive Negative, Equivocal A VALENTÍN (test code = VALENTÍN) Gume Morales Viral Capsid An tigen IgG Result Interpretation: </= 0.8 Al Negative 0.9-1.0 Al Equivocal >/= 1.1 Al Positive Lab Interpretation (test code = 39695-0) Abnormal [facility] HospitalEBV-VCA antibody, [id number] 04:11:00* Test Item Value Reference Range Interpretation Comments GUME MORALES VIRAL CAPSID ANTIGEN IGM (test code = 3418) Neg ative Negative, Equivocal VALENTÍN (test code = VALENTÍN) Gume Morales Viral Capsid An tigen IgM Result Interpretation: </= 0.8 Al Negative 0.9-1.0 Al Equivocal >/= 1.1 Al Positive Lab Interpretation (test code = 28147-4) Normal [facility] HospitalCytomegalovirus antibody, [id number] 04:11:00* Test Item Value Reference Range Interpretation Comments CMV IGM (test code = 3437) Negative Negative, Equivocal VALENTÍN (test code = VALENTÍN) CMV IgM Result Interpretatio n: </= 0.8 Al Negative 0.9-1.0 Al Equivocal >/= 1.1 Al Positive Lab Interpretation (test code = 38624-8) Normal [facility] HospitalMHA - [id number] 04:11:00* Test Item Value Reference Range Interpretation Comments TREPONEMA PALLIDUM, SYPHILIS IGG (test code = 6561-5) Reactive Nonreactive AA VALENTÍN (test code = VALENTÍN) Test performed by IVAN method. Lab Interpretation (test code = 38494-8) Abnormal [facility] HospitalCYTOMEGALOVIRUS ANTIBODY, [id number] 04:11:00* Test Item Value Reference Range Interpretation Comments CYTOMEGALOVIRUS, IGG (BEAKER) (test code = 3429) Positive Negat leta, Equivocal A CMV IgG Result Interpretation: </= 0.8 Al Negative 0.9-1.0 Al Equivocal > /=1.1 Al PositiveCYTOMEGALOVIRUS ANTIBODY, [id number] 04:11:00* Test Item Value Reference Range Interpretation Comments CYTOMEGALOVIRUS IGM ANTIBODY (BEAKER) (test code = 3437) Neg ative Negative, Equivocal CMV IgM Result Interpretation: </= 0.8 Al Negative 0.9-1.0 Al Equivocal > /= 1.1 Al PositiveEBV ANTIBODY, [id number] 04:11:00* Test Item Value Reference Range Interpretation Comments GUME MORALES VIRAL CAPSID ANTIGEN IGG (BEAKER) (test code = 3415) Positive Negative, Equivocal A Gume Morales Viral Capsid Antigen IgG Result Interpretation: </= 0.8 Al Negative 0.9-1.0 Al Equivocal >/= 1.1 Al PositiveEBV ANTIBODY, [id number] 04:11:00* Test Item Value Reference Range Interpretation Comments GUME MORALES VIRAL CAPSID ANTIGEN IGM (BEAKER) (test code = 3418) Negative Negative, Equivocal Gume Morales Viral Capsid Antigen IgM Result Interpretation: </= 0.8 Al Negative 0.9-1.0 Al Equivocal >/= 1.1 Al PositiveTREPONEMA PALLIDUM - SYPHILIS [id number] 04:11:00* Test Item Value Reference Range Interpretation Comments TREPONEMA PALLIDUM, SYPHILIS IGG (BEAKER) (test code = 3427) Reactive Nonreactive AA Test performed by IVAN method.Varicella Zoster Antibody, [id number] 03:46:00 * Test Item Value Reference Range Interpretation Comments Varicella IgG (test code = 36980-1) 7.2 VALENTÍN (test code = VALENTÍN) VARICELLA ZOSTER RESULT INTE RPRETATIONS: <=0.8 Al Nonreactive: Presumed non-immune to VZV 0.9-1.0 Al Equivocal >=1.1 Al Reactive: Presumed immune to VZV [facility] HospitalVARICELLA ZOSTER ANTIBODY, [id number] 03:46:00* Test Item Value Reference Range Interpretation Comments VARICELLA ZOSTER IGG (AL) (BEAKER) (test code = 3197) 7.2 VARICELLA ZOSTER RESULT INTERPRETATIONS: <=0.8 Al Nonreactive: Presumed non-immune to VZV 0.9-1.0 Al Equivocal >=1.1 Al Reactive: Presumed immune to VZVRPR [id number] 02:59:00* Test Item Value Reference Range Interpretation Comments RPR Titer (test code = 52239-1) 1:4 [facility] HospitalRPR [id number] 02:59:00* Test Item Value Reference Range Interpretation Comments RPR TITER (BEAKER) (test code = 1485) :4 [id number] 02:58:00* Test Item Value Reference Range Interpretation Comments RPR (test code = 50576-9) Reactive Nonreactive A Lab Interpretation (test code = 11581-4) Abnormal [facility] HospitalRPR2020-02-07 02:58:00* Test Item Value Reference Range Interpretation Comments RPR SCREEN (AKER) (test code = 420) Reactive Nonreactive A Hepatitis C [id number] 15:09:00* Test Item Value Reference Range Interpretation Comments Hepatitis C Ab (test code = 50766-1) Reactive Nonreactive A VALENTÍN (test code = VALENTÍN) Zmt Operator ID - [employer] Lab Interpretation (test code = 86554-8) Abnormal [facility] HospitalHEPATITIS C [id number] 15:09:00* Test Item Value Reference Range Interpretation Comments HEPATITIS C ANTIBODY (BEAKER) (test code = 367) Reactive Nonrea ctive Printer Assistant ID - KAYLYNNGDirect AHG (JOHNNY)/Direct [id number] 14:09:00* Test Item Value Reference Range Interpretation Comments Direct [facility]-IGG (test code = 1006-6) NEGATIVE saline control-negative Direct [facility]-C3B, C3D (test code = 1003-3) NEGATVIE [facility] B surface [id number] 13:48:00* Test Item Value Reference Range Interpretation Comments Hep B S Ab (test code = 29710-8) <8.0 <8.0 mIU/mL VALENTÍN (test code = VALENTÍN) Zmt Operator ID - [employer] Lab Interpretation (test code = 08073-8) Normal [facility] B SURFACE [id number] 13:48:00* Test Item Value Reference Range Interpretation Comments HEPATITIS B SURFACE ANTIBODY (BEAKER) (test code = 647) < mIU/mL <8.0 Zmt Operator ID - 3FunnelAVINASHepatitis B surface [id number] 13:45:00* Test Item Value Reference Range Interpretation Comments HBsAg Screen (test code = 5195-3) Nonreactive Nonreactive VALENTÍN (test code = VALENTÍN) Zmt Operator ID - [employer] Lab Interpretation (test code = 63800-0) Normal [facility] B core antibody, [id number] 13:45:00* Test Item Value Reference Range Interpretation Comments Hep B C IgM (test code = 28555-1) Nonreactive Nonreactive VALENTÍN (test code = VALENTÍN) Zmt Operator ID - [employer] Lab Interpretation (test code = 74113-0) Normal [facility] HospitalHIV-1 Antigen with HIV-1/2 [id number] 13:45:00* Test Item Value Reference Range Interpretation Comments HIV-1 Antigen with HIV 1&2 Antibody (test code = 67027-5) No nreactive Nonreactive VALENTÍN (test code = VALENTÍN) Zmt Operator ID - JANIE Lab Interpretation (test code = 36519-3) Normal [facility] HospitalHEPATITIS B SURFACE [id number] 13:45:00* Test Item Value Reference Range Interpretation Comments HEPATITIS B SURFACE ANTIGEN (2) (BEAKER) (test code = 2585) Nonreactive Nonreactive Zmt Operator ID - KATLYNEPATITIS B CORE ANTIBODY, [id number] 13:45:00* Test Item Value Reference Range Interpretation Comments HEPATITIS B CORE IGM ANTIBODY (BEAKER) (test code = 645) Non reactive Nonreactive Zmt Operator ID - KATLYNIV-1 ANTIGEN WITH HIV-1/2 [id number] 13:45:00* Test Item Value Reference Range Interpretation Comments HIV-1 ANTIGEN WITH HIV 1\\T\\2 ANTIBODY (2) (BEAKER) ( st code = 2586) Nonreactive Nonreactive Zmt Operator ID - KAYLYNNGPTH, [id number] 13:32:00* Test Item Value Reference Range Interpretation Comments PTH (test code = 2731-8) 462.7 pg/mL 8.5-72.5 H VALENTÍN (test code = VALENTÍN) Zmt Operator ID - JANIE Lab Interpretation (test code = 71148-0) [facility] [id number] 13:32:00* Test Item Value Reference Range Interpretation Comments PARATHYROID HORMONE INTACT (BEAKER) (test code = 577) 462.7 pg/mL 8.5-72.5 H Zmt Operator ID - KAYLYNNGComprehensive metabolic [id number] 13:30:00* Test Item Value Reference Range Interpretation Comments Protein, Total (test code = 2885-2) 7.5 6.0- 8.3 gm/dL Albumin (test code = 91212-1) 4.0 g/dL 3.5-5 Alkaline Phosphatase (test code = 6768-6) 161 U/L 40-150 H Total Bilirubin (test code = 1975-2) 0.5 mg/dL 0.2-1.2 Sodium (test code = 2951-2) 133 meq/L 136-145 L Potassium (test code = 2823-3) 3.2 meq/L 3.5-5.1 L Chloride (test code = 5-0) 94 meq/L 98-107 L CO2 (test code = 8-9) 27 meq/L 22-29 BUN (test code = 3094-0) 34 mg/dL 7-21 H Creatinine (test code = 2160-0) 5.10 mg/dL 0.57-1.25 H Glucose (test code = 2345-7) 243 mg/dL 70-105 H Calcium (test code = 03052-8) 8.0 mg/dL 8.4-10.2 L AST (test code = 1920-8) 18 U/L 5-34 ALT (test code = 1742-6) 20 U/L 6-55 EGFR (test code = 55201-8) 12 mL/min/1.73 sq m ESTIMATED GFR IS NOT ACCURATE CREATININE CLEARANCE IN PREDICTING GLOMERULAR FILTRATION RATE. ESTIMATED GFR IS NOT APPLICABLE FOR DIALYSIS PATIENTS. VALENTÍN (test code = VALENTÍN) Zmt Operator ID - ROSIANG Lab Interpretation (test code = 34759-0) [facility]normal [facility] [id number] 13:30:00* Test Item Value Reference Range Interpretation Comments TOTAL PROTEIN (BEAKER) (test code = 770) 7.5 gm/dL 6.0-8.3 ALBUMIN (BEAKER) (test code = 1145) 4.0 g/dL 3.5-5.0 ALKALINE PHOSPHATASE (BEAKER) (test code = 346) 161 U/L 40-150 H BILIRUBIN TOTAL (BEAKER) (test code = 377) 0.5 mg/dL 0.2-1.2 SODIUM (BEAKER) (test code = 381) 133 meq/L 136-145 L POTASSIUM (BEAKER) (test code = 379) 3.2 meq/L 3.5-5.1 L CHLORIDE (BEAKER) (test code = 382) 94 meq/L 98-107 L CO2 (BEAKER) (test code = 355) 27 meq/L 22-29 BLOOD UREA NITROGEN (BEAKER) (test code = 354) 34 mg/dL 7-21 H CREATININE (BEAKER) (test code = 358) 5.10 mg/dL 0.57-1.25 H GLUCOSE RANDOM (BEAKER) (test code = 652) 243 mg/dL 70-105 H CALCIUM (BEAKER) (test code = 697) 8.0 mg/dL 8.4-10.2 L AST (SGOT) (BEAKER) (test code = 353) 18 U/L 5-34 ALT (SGPT) ([facility]) (test code = 347) 20 U/L 6-55 EGFR ([facility]) (test code = 1092) 12 mL/min/1.73 sq m ESTIMATED GFR IS NOT ACCURATE CREATININE CLEARANCE IN PREDICTING GLOMERULAR FILTRATION RATE. ESTIMATED GFR IS NOT APPLICABLE FOR DIALYSIS PATIENTS. Zmt Operator ID - ROSAVINASHGGamma Glutamyl Transferase (GGT)2019-09-27 13:19:00* Test Item Value Reference Range Interpretation Comments GGT (test code = 2324-2) 84 U/L 9-64 H VALENTÍN (test code = VALENTÍN) Zmt Operator ID - 3FunnelIANG Lab Interpretation (test code = 36937-6) [facility]normal [facility]2019-09-27 13:19:00* Test Item Value Reference Range Interpretation Comments LDH (test code = 2532-0) 231 U/L 125-220 H VALENTÍN (test code = VALENTÍN) Zmt Operator ID - 3FunnelIANG Lab Interpretation (test code = 25331-0) [facility]normal [facility] 13:19:00* Test Item Value Reference Range Interpretation Comments Phosphorus (test code = 2777-1) 4.7 mg/dL 2.3-4.7 VALENTÍN (test code = VALENTÍN) Zmt Operator ID - 3FunnelAVINASH Lab Interpretation (test code = 04510-1) Normal [facility] [id number] 13:19:00* Test Item Value Reference Range Interpretation Comments Uric Acid (test code = 3084-1) 4.6 mg/dL 2.6-7.2 VALENTÍN (test code = VALENTÍN) Zmt Operator ID - 3FunnelIAN Lab Interpretation (test code = 57176-4) Normal [facility]UR[facility] [id number] 13:19:00* Test Item Value Reference Range Interpretation Comments URIC ACID (BEAKER) (test code = 773) 4.6 mg/dL 2.6-7.2 Zmt Operator ID - [id number] 13:19:00* Test Item Value Reference Range Interpretation Comments PHOSPHORUS (BEAKER) (test code = 604) 4.7 mg/dL 2.3-4.7 Zmt Operator ID - ROSIANGGAMMA GLUTAMYL TRANSFERASE (GGT)2019-09-27 13:19:00* Test Item Value Reference Range Interpretation Comments GAMMA GLUTAMYL TRANSFERASE (BEAKER) (test code = 364) 84 U/L 9-64 H Zmt Operator ID - ROSIANGLACTATE DEHYDROGENASE (LDH)2019-09-27 13:19:00* Test Item Value Reference Range Interpretation Comments LACTATE DEHYDROGENASE (BEAKER) (test code = 635) 231 U/L 125-2 20 H Zmt Operator ID - ROSIANGPT/tTNM5715-07-08 13:04:00* Test Item Value Reference Range Interpretation Comments Protime (test code = 5902-2) 13.7 11.9- 14.2 seconds INR (test code = 6301-6) 1.1 <=5.9 PTT (test code = 22907-4) 31.4 22.5- 36.0 seconds VALENTÍN (test code = VALENTÍN) Effective 01/18/2019: PT Refe rence Range ChangeNew: 11.9- 14.2 Previous: 11.7-14.7 RECOMMENDED COUMADIN/WARFARIN INR THERAPY RANGESSTANDARD DOSE: 2.0-3.0 Includes: PROPHYLAXIS for venous thrombosis, sys temic embolization; TREATMENT for venous thrombosis and/or pulmonary embolus.HIGH RISK: Target INR is 2.5-3.5 for patients wiht mechanical heart valves. Lab Interpretation (test code = 41123-4) Normal [facility]PT/[id number] 13:04:00* Test Item Value Reference Range Interpretation Comments PROTIME (BEAKER) (test code = 759) 13.7 seconds 11.9-14.2 INR (BEAKER) (test code = 370) 1.1 <=5.9 PARTIAL THROMBOPLASTIN TIME (BEAKER) (test code = 760) 31.4 seconds 22.5-36.0 Effective 01/18/2019: PT Reference Range ChangeNew: 11.9-14.2 Previous: 11.7-14. 7RECOMMENDED COUMADIN/WARFARIN INR THERAPY RANGESSTANDARD DOSE: 2.0-3.0 Include s: PROPHYLAXIS for venous thrombosis, systemic embolization; TREATMENT for venou s thrombosis and/or pulmonary embolus.HIGH RISK: Target INR is 2.5-3.5 for patie nts wiht mechanical heart valves.CBC with platelet count + automated diff 2019-09-27 12:54:00* Test Item Value Reference Range Interpretation Comments WBC (test code = 6690-2) 10.2 3.5- 10.5 K/L RBC (test code = 789-8) 4.10 4.63- 6.08 M/L L MCHC (test code = 786-4) 32.3 32.3- 36.5 GM/DL L Hematocrit (test code = 4544-3) 35.6 % 40.1-51 L MCV (test code = 787-2) 86.8 fL 79-92.2 MCH (test code = 785-6) 28.0 pg 25.7-32.2 RDW (test code = 788-0) 13.5 % 11.6-14.4 Platelets (test code = 777-3) 265 150- 450 K/CU MM MPV (test code = 40693-7) 10.8 fL 9.4-12.4 nRBC (test code = 413) 0 0- 0 /100 WBC % Neutros (test code = 429) 60 % % Lymphs (test code = 430) 28 % % Monos (test code = 431) 9 % % Eos (test code = 432) 3 % % Baso (test code = 437) 1 % # Neutros (test code = 670) 6.10 1.78- 5.38 K/L H # Lymphs (test code = 414) 2.82 1.32- 3.57 K/L # Monos (test code = 415) 0.92 0.30- 0.82 K/L H # Eos (test code = 416) 0.31 0.04- 0.54 K/L # Baso (test code = 417) 0.05 0.01- 0.08 K/L Immature Granulocytes-Relative (test code = 2801) 0 % 0-1 Lab Interpretation (test code = 97347-3) Abnormal [facility] Center[facility]T [facility] & AUTO [id number] 12:54:00* Test Item Value Reference Range Interpretation Comments WHITE BLOOD CELL COUNT (BEAKER) (test code = 775) 10.2 K/ L 3.5- 10.5 RED BLOOD CELL COUNT (BEAKER) (test code = 761) 4.10 M/ L 4.63-6 .08 L HEMOGLOBIN (BEAKER) (test code = 410) 11.5 GM/DL 13.7-17.5 L HEMATOCRIT (BEAKER) (test code = 411) 35.6 % 40.1-51.0 L MEAN CORPUSCULAR VOLUME (BEAKER) (test code = 753) 86.8 fL 79. 0-92.2 MEAN CORPUSCULAR HEMOGLOBIN (BEAKER) (test code = 751) 28.0 pg 25.7-32.2 MEAN CORPUSCULAR HEMOGLOBIN CONC (BEAKER) (test code = 752) 32.3 GM/DL 32.3-36.5 RED CELL DISTRIBUTION WIDTH (BEAKER) (test code = 412) 13.5 % 11.6-14.4 PLATELET COUNT (BEAKER) (test code = 756) 265 K/CU MM 150-450 MEAN PLATELET VOLUME (BEAKER) (test code = 754) 10.8 fL 9.4-12 .4 NUCLEATED RED BLOOD CELLS (BEAKER) (test code = 413) 0 /100 WBC 0 -0 NEUTROPHILS RELATIVE PERCENT (BEAKER) (test code = 429) 60 % LYMPHOCYTES RELATIVE PERCENT (BEAKER) (test code = 430) 28 % MONOCYTES RELATIVE PERCENT (BEAKER) (test code = 431) 9 % EOSINOPHILS RELATIVE PERCENT (BEAKER) (test code = 432) 3 % BASOPHILS RELATIVE PERCENT (BEAKER) (test code = 437) 1 % NEUTROPHILS ABSOLUTE COUNT (BEAKER) (test code = 670) 6.10 K/ L 1.78-5.38 H LYMPHOCYTES ABSOLUTE COUNT (BEAKER) (test code = 414) 2.82 K/ L 1.32-3.57 MONOCYTES ABSOLUTE COUNT (BEAKER) (test code = 415) 0.92 K/ L 0. 30-0.82 H EOSINOPHILS ABSOLUTE COUNT (BEAKER) (test code = 416) 0.31 K/ L 0.04-0.54 BASOPHILS ABSOLUTE COUNT (BEAKER) (test code = 417) 0.05 K/ L 0. 01-0.08 IMMATURE GRANULOCYTES-RELATIVE PERCENT (BEAKER) (test code = 2801) 0 % 0-1 BASIC METABOLIC [id number] 19:24:00* Test Item Value Reference Range Interpretation Comments SODIUM (test code = NA) 139 mmol/L 136-145 N POTASSIUM (test code = K) 4.5 mmol/L 3.5-5.1 N CHLORIDE (test code = CL) 108.0 mmol/L 98-107 H CARBON DIOXIDE (test code = CO2) 21.0 mmol/L 21-32 N ANION GAP (test code = GAP) 14.5 10-20 N GLUCOSE (test code = GLU) 152 mg/dL 74-106 H BLOOD UREA NITROGEN (test code = BUN) 86 mg/dL 7-18 H GLOMERULAR FILTRATION RATE (test code = GFR) 8 mL/min >=60 Estimated GFR by using Modified MDRD formula.Chronic kidney disease is defined as either kidney damageor GFR <60 mL/min/1.73 m2 for >3 months. CREATININE (test code = CREAT) 7.30 mg/dL 0.7-1.3 H BUN/CREATININE RATIO (test code = BUN/CREA) 11.8 10-20 N CALCIUM (test code = CA) 6.8 mg/dL 8.5-10.1 L BASIC METABOLIC [id number] 19:16:00* Test Item Value Reference Range Interpretation Comments SODIUM (test code = NA) 139 mmol/L 136-145 N POTASSIUM (test code = K) 4.5 mmol/L 3.5-5.1 N CHLORIDE (test code = CL) 108.0 mmol/L 98-107 H CARBON DIOXIDE (test code = CO2) mmol/L 21-32 ANION GAP (test code = GAP) 10-20 GLUCOSE (test code = GLU) mg/dL 74-106 BLOOD UREA NITROGEN (test code = BUN) mg/dL 7-18 GLOMERULAR FILTRATION RATE (test code = GFR) mL/min >=60 CREATININE (test code = CREAT) mg/dL 0.7-1.3 BUN/CREATININE RATIO (test code = BUN/CREA) 10-20 CALCIUM (test code = CA) mg/dL 8.5-10.1 CBC W/AUTO [id number] 19:04:00* Test Item Value Reference Range Interpretation Comments WHITE BLOOD CELL (test code = WBC) 9.3 K/mm3 4.5-12.5 N RED BLOOD CELL (test code = RBC) 3.61 mill/mm3 4.0-5.8 L HEMOGLOBIN (test code = HGB) 10.1 gram/dL 13.0-17.5 L HEMATOCRIT (test code = HCT) 31.5 % 42.0-52.0 L MEAN CELL VOLUME (test code = MCV) 87.3 fL 80-98 N MEAN CELL HGB (test code = MCH) 28.0 picogram 27.0-33.0 N MEAN CELL HGB CONCETRATION (test code = MCHC) 32.1 gram/dL 33.0-36. 0 L RED CELL DISTRIBUTION WIDTH (test code = RDW) 13.3 % 11.6-16. 2 N RED CELL DISTRIBUTION WIDTH SD (test code = RDW-SD) 41.6 fL 37 .0-51.0 N PLATELET COUNT (test code = PLT) 363 K/mm3 150-450 N MEAN PLATELET VOLUME (test code = MPV) 10.4 fL 6.7-11.0 N NEUTROPHIL % (test code = NT%) 61.6 % 39.0-69.0 N IMMATURE GRANULOCYTE % (test code = IG%) 0.7 % 0.0-5.0 N LYMPHOCYTE % (test code = LY%) 23.7 % 25.0-55.0 L MONOCYTE % (test code = MO%) 9.7 % 0.0-10.0 N EOSINOPHIL % (test code = EO%) 3.9 % 0.0-5.0 N BASOPHIL % (test code = BA%) 0.4 % 0.0-1.0 N NUCLEATED RBC % (test code = NRBC%) 0.0 % 0-0 N NEUTROPHIL # (test code = NT#) 5.75 K/mm3 1.8-7.7 N IMMATURE GRANULOCYTE # (test code = IG#) 0.07 x10 3/uL 0-0.03 H LYMPHOCYTE # (test code = LY#) 2.21 K/mm3 1.0-5.0 N MONOCYTE # (test code = MO#) 0.91 K/mm3 0-0.8 H EOSINOPHIL # (test code = EO#) 0.36 K/mm3 0.0-0.5 N BASOPHIL # (test code = BA#) 0.04 K/mm3 0.0-0.2 N NUCLEATED RBC # (test code = NRBC#) 0.00 K/mm3 0.0-0.1 N MANUAL DIFF REQUIRED (test code = MDIFF) NO [id number] 20:30:00* Test Item Value Reference Range Interpretation Comments GLUBED (test code = GLUBED) 197 mg/dL 74-106 H Performed by certified plastic machine operator at [facility] [id number] 19:20:00* Test Item Value Reference Range Interpretation Comments GLUBED (test code = GLUBED) 170 mg/dL 74-106 H Performed by certified plastic machine operator at [facility] [id number] 13:00:00* Test Item Value Reference Range Interpretation Comments GLUBED (test code = GLUBED) 146 mg/dL 74-106 H Performed by certified plastic machine operator at [facility] BASIC METABOLIC [id number] 07:51:00* Test Item Value Reference Range Interpretation Comments SODIUM (test code = NA) 135 mmol/L 136-145 L POTASSIUM (test code = K) 4.4 mmol/L 3.5-5.1 N CHLORIDE (test code = CL) 98.0 mmol/L 98-107 N CARBON DIOXIDE (test code = CO2) 28.0 mmol/L 21-32 N ANION GAP (test code = GAP) 13.4 10-20 N GLUCOSE (test code = GLU) 181 mg/dL 74-106 H BLOOD UREA NITROGEN (test code = BUN) 54 mg/dL 7-18 H GLOMERULAR FILTRATION RATE (test code = GFR) 8 mL/min >=60 Estimated GFR by using Modified MDRD formula.Chronic kidney disease is defined as either kidney damageor GFR <60 mL/min/1.73 m2 for >3 months. CREATININE (test code = CREAT) 6.90 mg/dL 0.7-1.3 H BUN/CREATININE RATIO (test code = BUN/CREA) 7.8 10-20 L CALCIUM (test code = CA) 8.0 mg/dL 8.5-10.1 L BASIC METABOLIC [id number] 07:47:00* Test Item Value Reference Range Interpretation Comments SODIUM (test code = NA) 135 mmol/L 136-145 L POTASSIUM (test code = K) 4.4 mmol/L 3.5-5.1 N CHLORIDE (test code = CL) 98.0 mmol/L 98-107 N CARBON DIOXIDE (test code = CO2) mmol/L 21-32 ANION GAP (test code = GAP) 10-20 GLUCOSE (test code = GLU) mg/dL 74-106 BLOOD UREA NITROGEN (test code = BUN) mg/dL 7-18 GLOMERULAR FILTRATION RATE (test code = GFR) mL/min >=60 CREATININE (test code = CREAT) mg/dL 0.7-1.3 BUN/CREATININE RATIO (test code = BUN/CREA) 10-20 CALCIUM (test code = CA) 8.0 mg/dL 8.5-10.1 L CBC W/AUTO [id number] 07:32:00* Test Item Value Reference Range Interpretation Comments WHITE BLOOD CELL (test code = WBC) 16.1 K/mm3 4.5-12.5 H RED BLOOD CELL (test code = RBC) 3.24 mill/mm3 4.0-5.8 L HEMOGLOBIN (test code = HGB) 9.0 gram/dL 13.0-17.5 L HEMATOCRIT (test code = HCT) 29.2 % 42.0-52.0 L MEAN CELL VOLUME (test code = MCV) 90.1 fL 80-98 N MEAN CELL HGB (test code = MCH) 27.8 picogram 27.0-33.0 N MEAN CELL HGB CONCETRATION (test code = MCHC) 30.8 gram/dL 33.0-36. 0 L RED CELL DISTRIBUTION WIDTH (test code = RDW) 13.1 % 11.6-16. 2 N RED CELL DISTRIBUTION WIDTH SD (test code = RDW-SD) 42.6 fL 37 .0-51.0 N PLATELET COUNT (test code = PLT) 270 K/mm3 150-450 N MEAN PLATELET VOLUME (test code = MPV) 10.4 fL 6.7-11.0 N NEUTROPHIL % (test code = NT%) 72.0 % 39.0-69.0 H IMMATURE GRANULOCYTE % (test code = IG%) 1.6 % 0.0-5.0 N LYMPHOCYTE % (test code = LY%) 17.8 % 25.0-55.0 L MONOCYTE % (test code = MO%) 7.7 % 0.0-10.0 N EOSINOPHIL % (test code = EO%) 0.7 % 0.0-5.0 N BASOPHIL % (test code = BA%) 0.2 % 0.0-1.0 N NUCLEATED RBC % (test code = NRBC%) 0.1 % 0-0 H NEUTROPHIL # (test code = NT#) 11.57 K/mm3 1.8-7.7 H IMMATURE GRANULOCYTE # (test code = IG#) 0.26 x10 3/uL 0-0.03 H LYMPHOCYTE # (test code = LY#) 2.87 K/mm3 1.0-5.0 N MONOCYTE # (test code = MO#) 1.24 K/mm3 0-0.8 H EOSINOPHIL # (test code = EO#) 0.12 K/mm3 0.0-0.5 N BASOPHIL # (test code = BA#) 0.03 K/mm3 0.0-0.2 N NUCLEATED RBC # (test code = NRBC#) 0.02 K/mm3 0.0-0.1 N MANUAL DIFF REQUIRED (test code = MDIFF) NO [id number] 20:29:00* Test Item Value Reference Range Interpretation Comments GLUBED (test code = GLUBED) 307 mg/dL 74-106 H Performed by certified plastic machine operator at [facility] [id number] 17:51:00* Test Item Value Reference Range Interpretation Comments GLUBED (test code = GLUBED) 263 mg/dL 74-106 H Performed by certified plastic machine operator at [facility] [id number] 12:58:00* Test Item Value Reference Range Interpretation Comments GLUBED (test code = GLUBED) 336 mg/dL 74-106 H Performed by certified plastic machine operator at [facility] BASIC METABOLIC [id number] 07:58:00* Test Item Value Reference Range Interpretation Comments SODIUM (test code = NA) 138 mmol/L 136-145 N POTASSIUM (test code = K) 4.2 mmol/L 3.5-5.1 N CHLORIDE (test code = CL) 100.0 mmol/L 98-107 N CARBON DIOXIDE (test code = CO2) 29.0 mmol/L 21-32 N ANION GAP (test code = GAP) 13.2 10-20 N GLUCOSE (test code = GLU) 188 mg/dL 74-106 H BLOOD UREA NITROGEN (test code = BUN) 29 mg/dL 7-18 H RESULT VERIFIED BY REPEAT ANALYSIS GLOMERULAR FILTRATION RATE (test code = GFR) 15 mL/min >=60 Estimated GFR by using Modified MDRD formula.Chronic kidney disease is defined as either kidney damageor GFR <60 mL/min/1.73 m2 for >3 months. CREATININE (test code = CREAT) 4.10 mg/dL 0.7-1.3 H BUN/CREATININE RATIO (test code = BUN/CREA) 7.1 10-20 L CALCIUM (test code = CA) 7.5 mg/dL 8.5-10.1 L SPECIMEN COMMENTS: ADD ON TO THE AM LABSBASIC METABOLIC [id number] 07:27:00 * Test Item Value Reference Range Interpretation Comments SODIUM (test code = NA) 138 mmol/L 136-145 N POTASSIUM (test code = K) 4.2 mmol/L 3.5-5.1 N CHLORIDE (test code = CL) 100.0 mmol/L 98-107 N CARBON DIOXIDE (test code = CO2) mmol/L 21-32 ANION GAP (test code = GAP) 10-20 GLUCOSE (test code = GLU) mg/dL 74-106 BLOOD UREA NITROGEN (test code = BUN) mg/dL 7-18 GLOMERULAR FILTRATION RATE (test code = GFR) mL/min >=60 CREATININE (test code = CREAT) mg/dL 0.7-1.3 BUN/CREATININE RATIO (test code = BUN/CREA) 10-20 CALCIUM (test code = CA) mg/dL 8.5-10.1 SPECIMEN COMMENTS: ADD ON TO THE AM [id number] 05:46:00* Test Item Value Reference Range Interpretation Comments GLUBED (test code = GLUBED) 183 mg/dL 74-106 H Performed by certified plastic machine operator at [facility] CBC W/AUTO [id number] 04:50:00* Test Item Value Reference Range Interpretation Comments WHITE BLOOD CELL (test code = WBC) 10.7 K/mm3 4.5-12.5 N RED BLOOD CELL (test code = RBC) 3.60 mill/mm3 4.0-5.8 L HEMOGLOBIN (test code = HGB) 10.2 gram/dL 13.0-17.5 L HEMATOCRIT (test code = HCT) 31.3 % 42.0-52.0 L MEAN CELL VOLUME (test code = MCV) 86.9 fL 80-98 N MEAN CELL HGB (test code = MCH) 28.3 picogram 27.0-33.0 N MEAN CELL HGB CONCETRATION (test code = MCHC) 32.6 gram/dL 33.0-36. 0 L RED CELL DISTRIBUTION WIDTH (test code = RDW) 13.1 % 11.6-16. 2 N RED CELL DISTRIBUTION WIDTH SD (test code = RDW-SD) 40.9 fL 37 .0-51.0 N PLATELET COUNT (test code = PLT) 281 K/mm3 150-450 N MEAN PLATELET VOLUME (test code = MPV) 10.7 fL 6.7-11.0 N NEUTROPHIL % (test code = NT%) 66.2 % 39.0-69.0 N IMMATURE GRANULOCYTE % (test code = IG%) 0.7 % 0.0-5.0 N LYMPHOCYTE % (test code = LY%) 20.1 % 25.0-55.0 L MONOCYTE % (test code = MO%) 10.4 % 0.0-10.0 H EOSINOPHIL % (test code = EO%) 2.2 % 0.0-5.0 N BASOPHIL % (test code = BA%) 0.4 % 0.0-1.0 N NUCLEATED RBC % (test code = NRBC%) 0.0 % 0-0 N NEUTROPHIL # (test code = NT#) 7.10 K/mm3 1.8-7.7 N IMMATURE GRANULOCYTE # (test code = IG#) 0.07 x10 3/uL 0-0.03 H LYMPHOCYTE # (test code = LY#) 2.16 K/mm3 1.0-5.0 N MONOCYTE # (test code = MO#) 1.12 K/mm3 0-0.8 H EOSINOPHIL # (test code = EO#) 0.24 K/mm3 0.0-0.5 N BASOPHIL # (test code = BA#) 0.04 K/mm3 0.0-0.2 N NUCLEATED RBC # (test code = NRBC#) 0.00 K/mm3 0.0-0.1 N [id number] 20:20:00* Test Item Value Reference Range Interpretation Comments GLUBED (test code = GLUBED) 200 mg/dL 74-106 H Performed by certified plastic machine operator at [facility] [id number] 17:48:00* Test Item Value Reference Range Interpretation Comments GLUBED (test code = GLUBED) 145 mg/dL 74-106 H Performed by certified plastic machine operator at [facility] UR CREATININE CLEARANCE [id number] 15:13:00* Test Item Value Reference Range Interpretation Comments CREATININE CLEARANCE RESULT (test code = CREATCLR) 8 mL/min 100 -120 L CREATININE (test code = CREAT) 4.00 mg/dL 0.7-1.3 H UR CREATININE RANDOM (test code = CREATU) 50.0 mg/dL 30-125 N UR VOLUME 24HR (test code = VOL) 900 mL/24hrs [id number] TOTAL VOLUME: 900mLUR CREATININE CLEARANCE [id number] 07:37:00* Test Item Value Reference Range Interpretation Comments CREATININE CLEARANCE RESULT (test code = CREATCLR) mL/min 100 -120 CREATININE (test code = CREAT) mg/dL 0.7-1.3 UR CREATININE RANDOM (test code = CREATU) 50.0 mg/dL 30-125 N UR VOLUME 24HR (test code = VOL) mL/24hrs [id number] TOTAL VOLUME: [id number] 06:47:00* Test Item Value Reference Range Interpretation Comments GLUBED (test code = GLUBED) 91 mg/dL 74-106 N Performed by certified plastic machine operator at [facility] BASIC METABOLIC [id number] 05:40:00* Test Item Value Reference Range Interpretation Comments SODIUM (test code = NA) 142 mmol/L 136-145 N POTASSIUM (test code = K) 4.0 mmol/L 3.5-5.1 N CHLORIDE (test code = CL) 106.0 mmol/L 98-107 N CARBON DIOXIDE (test code = CO2) 28.0 mmol/L 21-32 N ANION GAP (test code = GAP) 12.0 10-20 N GLUCOSE (test code = GLU) 84 mg/dL 74-106 N BLOOD UREA NITROGEN (test code = BUN) 37 mg/dL 7-18 H GLOMERULAR FILTRATION RATE (test code = GFR) 18 mL/min >=60 Estimated GFR by using Modified MDRD formula.Chronic kidney disease is defined as either kidney damageor GFR <60 mL/min/1.73 m2 for >3 months. CREATININE (test code = CREAT) 3.50 mg/dL 0.7-1.3 H BUN/CREATININE RATIO (test code = BUN/CREA) 10.6 10-20 N CALCIUM (test code = CA) 7.5 mg/dL 8.5-10.1 L BASIC METABOLIC [id number] 05:35:00* Test Item Value Reference Range Interpretation Comments SODIUM (test code = NA) 142 mmol/L 136-145 N POTASSIUM (test code = K) 4.0 mmol/L 3.5-5.1 N CHLORIDE (test code = CL) 106.0 mmol/L 98-107 N CARBON DIOXIDE (test code = CO2) mmol/L 21-32 ANION GAP (test code = GAP) 10-20 GLUCOSE (test code = GLU) mg/dL 74-106 BLOOD UREA NITROGEN (test code = BUN) mg/dL 7-18 GLOMERULAR FILTRATION RATE (test code = GFR) mL/min >=60 CREATININE (test code = CREAT) mg/dL 0.7-1.3 BUN/CREATININE RATIO (test code = BUN/CREA) 10-20 CALCIUM (test code = CA) mg/dL 8.5-10.1 CBC W/O [id number] 05:32:00* Test Item Value Reference Range Interpretation Comments WHITE BLOOD CELL (test code = WBC) 10.0 K/mm3 4.5-12.5 N RED BLOOD CELL (test code = RBC) 3.42 mill/mm3 4.0-5.8 L HEMOGLOBIN (test code = HGB) 9.6 gram/dL 13.0-17.5 L HEMATOCRIT (test code = HCT) 29.8 % 42.0-52.0 L MEAN CELL VOLUME (test code = MCV) 87.1 fL 80-98 N MEAN CELL HGB (test code = MCH) 28.1 picogram 27.0-33.0 N MEAN CELL HGB CONCETRATION (test code = MCHC) 32.2 gram/dL 33.0-36. 0 L RED CELL DISTRIBUTION WIDTH (test code = RDW) 13.1 % 11.6-16. 2 N PLATELET COUNT (test code = PLT) 254 K/mm3 150-450 N MEAN PLATELET VOLUME (test code = MPV) 11.0 fL 6.7-11.0 N [id number] 21:27:00* Test Item Value Reference Range Interpretation Comments GLUBED (test code = GLUBED) 92 mg/dL 74-106 N Performed by certified plastic machine operator at [facility] [id number] 17:07:00* Test Item Value Reference Range Interpretation Comments GLUBED (test code = GLUBED) 145 mg/dL 74-106 H Performed by certified plastic machine operator at [facility] [id number] 13:57:00* Test Item Value Reference Range Interpretation Comments GLUBED (test code = GLUBED) 155 mg/dL 74-106 H Performed by certified plastic machine operator at [facility] AB HEPATITIS B [id number] 13:10:00* Test Item Value Reference Range Interpretation Comments AB HEPATITIS B SURFACE (test code = HBSAB) Non Reactive () Non Reactive: Inconsistent with immunity, less than 10 mIU/mL Reactive: Consistent with immunity, greater than 9.9 mIU/mLPerformed At: [facility] [address] [id number] White MD Ph:[phone] HEPATITIS B CORE ANTIBODY,[id number] 13:10:00* Test Item Value Reference Range Interpretation Comments HEPATITIS B CORE ANTIBODY,TOT (test code = HBCAB) Positive Nega tive A Performed At: [facility] [address] [id number] White MD Ph:[phone] - [place] [facility] [id number] 08:44:00 Name: NIKO BUSTILLO JR [facility] : 1955 Age/S: 64 / M [address] Unit #: [id number] Loc: [place] [address] Phys: Luan Guzman MD Acct: [id number] Dis Date: Status: ADM IN PHONE #: [phone] Exam Date: 09/04/2019 1642 FAX #: [phone] Reason: EXAMS: CPT CODE: [id number] US GUIDANCE [facility] ACCESS 59989 Fluoro Time: DAP (Gy m2): Air Kerma (mGy): REASON FOR EXAM: ESRD Referring Physician: Luan Guzman MD PROCEDURE: Ultrasound and fluoroscopic guided tunneled hemodialysis catheter placement with IV conscious sedation CPT code: 91652, 73479,98151 Jkmb-ug-qetj procedure time is approximately: 45 minutes FINDINGS: After informed consent was obtained, the patient was brought to special procedures and placed supine on the table. The right neck and chest wall were prepped and draped in the usual fashion. All elements of maximal sterile barrier technique were followed. US shows patency of the right IJ. Images of the vein were submitted to PACS. The vein is patent and compressible. 2% local lidocaine was given for local anesthetic in the neck and chest wall. Under real time ultrasound guidance, a micropuncture needle was used to access the vein. A mcc dialysis catheter was tunneled under the subcutaneous tissue and inserted through a sheath with the tip positioned in the SVC under direct fluoroscopic guidance. The catheter was sutured to the subcutaneous tissue with prolene sutures and is ready for use. MEDICATIONS: 1mg versed, 25mcg fentanyl. COMPLICATIONS: None. Blood loss: less than 5cc Fluoroscopic time:6 sec Fluoroscopic dose:1 mGy Number of fluoroscopic images obtained: 2 IMPRESSION: right IJ tunneled hemodialysis catheter is ready for use. at 0844 Reported and signed by: Trey Vu M.D. CC: Luan Guzman MD; Herman Preston Technologist: Nancy Sellers RT(R) Trnscb Date/Time: 09/05/2019 (0844) Cliff Orig Print D/T: S: 09/05/2019 (1668) PAGE 1 Signed Report - SP FLUORO GUID CTRL ACC DEV 2019-09-05 08:44:00 Name: NIKO BUSTILLO JR [facility] : 1955 Age/S: 64 / M [address] Unit #: [id number] Loc: [place] [address] Phys: Luan Guzman MD Acct: [id number] Dis Date: Status: ADM IN PHONE #: [phone] Exam Date: 09/04/2019 1642 FAX #: [phone] Reason: EXAMS: CPT CODE: [id number] SP FLUORO GUID CTRL ACC DEV 59269 Fluoro Time: 6 DAP (Gy m2): 0.51 Air Kerma (mGy): 1 REASON FOR EXAM: ESRD Referring Physician: Luan Guzman MD PROCEDURE: Ultrasound and fluoroscopic guided tunneled hemodialysis catheter placement with IV conscious sedation CPT code: 65792, 90902,08554 Iacp-bs-snnp procedure time is approximately: 45 minutes FINDINGS: After informed consent was obtained, the patient was brought to special procedures and placed supine on the table. The right neck and chest wall were prepped and draped in the usual fashion. All elements of maximal sterile barrier technique were followed. US shows patency of the right IJ. Images of the vein were submitted to PACS. The vein is patent and compressible. 2% local lidocaine was given for local anesthetic in the neck and chest wall. Under real time ultrasound guidance, a micropuncture needle was used to access the vein. A mcc dialysis catheter was tunneled under the subcutaneous tissue and inserted through a sheath with the tip positioned in the SVC under direct fluoroscopic guidance. The catheter was sutured to the subcutaneous tissue with prolene sutures and is ready for use. MEDICATIONS: 1mg versed, 25mcg fentanyl. COMPLICATIONS: None. Blood loss: less than 5cc Fluoroscopic time:6 sec Fluoroscopic dose:1 mGy Number of fluoroscopic images obtained: 2 IMPRESSION: right IJ tunneled hemodialysis catheter is ready for use. at 0844 Reported and signed by: Trey Vu M.D. CC: Luan Guzman MD; Herman Preston Technologist: Nancy Sellers RT(R) Trnscb Date/Time: 09/05/2019 (0844) t.MADHAVIL Orig Print D/T: S: 09/05/2019 (4679) PAGE 1 Signed Report [id number] 06:33:00* Test Item Value Reference Range Interpretation Comments GLUBED (test code = GLUBED) 101 mg/dL 74-106 N Performed by certified plastic machine operator at [facility] COMPREHENSIVE METABOLIC [id number] 05:04:00* Test Item Value Reference Range Interpretation Comments SODIUM (test code = NA) 141 mmol/L 136-145 N POTASSIUM (test code = K) 3.8 mmol/L 3.5-5.1 N CHLORIDE (test code = CL) 106.0 mmol/L 98-107 N CARBON DIOXIDE (test code = CO2) 26.0 mmol/L 21-32 N ANION GAP (test code = GAP) 12.8 10-20 N GLUCOSE (test code = GLU) 130 mg/dL 74-106 H BLOOD UREA NITROGEN (test code = BUN) 52 mg/dL 7-18 H RESULT VERIFIED BY REPEAT ANALYSIS GLOMERULAR FILTRATION RATE (test code = GFR) 15 mL/min >=60 Estimated GFR by using Modified MDRD formula.Chronic kidney disease is defined as either kidney damageor GFR <60 mL/min/1.73 m2 for >3 months. CREATININE (test code = CREAT) 4.00 mg/dL 0.7-1.3 H BUN/CREATININE RATIO (test code = BUN/CREA) 13.0 10-20 N TOTAL PROTEIN (test code = PROT) 6.1 gram/dL 6.4-8.2 L ALBUMIN (test code = ALB) 2.4 g/dL 3.4-5.0 L GLOBULIN (test code = GLOB) 3.7 gram/dL 2.7-4.2 N ALBUMIN/GLOBULIN RATIO (test code = A/G) 0.7 0.75-1.50 L CALCIUM (test code = CA) 6.9 mg/dL 8.5-10.1 L BILIRUBIN TOTAL (test code = BILT) 0.20 mg/dL 0.0-1.0 N SGOT/AST (test code = AST) 18 IUnit/L 15-37 N SGPT/ALT (test code = ALT) 22 IUnit/L 12-78 N ALKALINE PHOSPHATASE TOTAL (test code = ALKP) 137 IUnit/L 45-117 H Note change in reference range due to change in reagent. COMPREHENSIVE METABOLIC [id number] 04:48:00* Test Item Value Reference Range Interpretation Comments SODIUM (test code = NA) 141 mmol/L 136-145 N POTASSIUM (test code = K) 3.8 mmol/L 3.5-5.1 N CHLORIDE (test code = CL) 106.0 mmol/L 98-107 N CARBON DIOXIDE (test code = CO2) mmol/L 21-32 ANION GAP (test code = GAP) 10-20 GLUCOSE (test code = GLU) mg/dL 74-106 BLOOD UREA NITROGEN (test code = BUN) mg/dL 7-18 GLOMERULAR FILTRATION RATE (test code = GFR) mL/min >=60 CREATININE (test code = CREAT) mg/dL 0.7-1.3 BUN/CREATININE RATIO (test code = BUN/CREA) 10-20 TOTAL PROTEIN (test code = PROT) gram/dL 6.4-8.2 ALBUMIN (test code = ALB) g/dL 3.4-5.0 GLOBULIN (test code = GLOB) gram/dL 2.7-4.2 ALBUMIN/GLOBULIN RATIO (test code = A/G) 0.75-1.50 CALCIUM (test code = CA) mg/dL 8.5-10.1 BILIRUBIN TOTAL (test code = BILT) mg/dL 0.0-1.0 SGOT/AST (test code = AST) IUnit/L 15-37 SGPT/ALT (test code = ALT) IUnit/L 12-78 ALKALINE PHOSPHATASE TOTAL (test code = ALKP) IUnit/L 45-117 [id number] 21:03:00* Test Item Value Reference Range Interpretation Comments GLUBED (test code = GLUBED) 125 mg/dL 74-106 H Performed by certified plastic machine operator at [facility] - XR CHEST 1 [id number] 20:25:00 FAX: Luan Jolly [phone] [place]: St: ADM FAX: Herman Watters [phone] Name: BUSTILLOGABRIEL RADFORDLILLI NORRIS [facility] : 1955 Age/S: 64/M [address] [facility] Unit #: [id number] Loc: [place] [address] Phys: Trey Vu MD Acct: [id number] Dis Date: Status: ADM IN PHONE #: [phone] Exam Date: 09/04/2019 1700 FAX #: [phone] Reason: POST LINE PLACEMENT EXAMS: CPT CODE: [id number] XR CHEST 1 V 54731 EXAM: Chest x-ray, one view; INFORMATION: Post line placement; IMPRESSION: 1. The tip of a new tunneled right IJ hemodialysis catheter is positioned at the SVC/right atrial junction. 2. No evidence of a pneumothorax. 3. Otherwise significant improvement compared with yesterday's study with resolution of pulmonary edema and decrease in heart size. The heart is now borderline in size. Location code: [facility] at 2024 Reported and signed by: Lamin Mooney M.D. CC: Luan Guzman MD; Herman Preston Technologist: AISLINN Donnelly Trnscrd Date/Time/By: 09/04/2019 (2024) : By: MarinoGRW Orig Print D/T: S: 09/04/2019 (2027) PAGE 1 Signed Report - CT ABD PELVIS W/O [id number] 16:12:00 Name: BUSTILLONIKO JR [facility] : 1955 Age/S: 64 / M [address] [facility] Unit #: [id number] Loc: [place] [address] Phys: Destin Almaraz MD Acct: [id number] Dis Date: Status: ADM IN PHONE #: [phone] Exam Date: 09/04/2019 1430 FAX #: [phone] Reason: CONSTIPATION EXAMS: CPT CODE: [id number] CT ABD PELVIS W/O CONT 97505 EXAM: CT of the abdomen and pelvis without contrast; INFORMATION: Abdominal pain, constipation; end-stage renal disease; TECHNIQUE AND FINDINGS: CT dose reduction protocol; 5 mm cuts through the abdomen and pelvis without contrast. Liver and spleen are of normal size and shape; no focal lesions. No abnormalities of the biliary system. Atrophic pancreas without focal lesions. Adrenal glands unremarkable. The kidneys are of normal size and shape; no hydronephrosis, no stones. There are multiple sigmoid diverticula; no evidence of diverticulitis or other acute bowel abnorma lities. Extensive calcifications of the abdominal aorta and visceral as we ll as iliofemoral arteries. No pelvic mass lesions. Lung bases are clear. IMPRESSION: 1. No acute abdominal or pelvic abnormalities. 2. No evidence of renal or ureteral stones or of obstruct leta uropathy. 3. Sigmoid diverticulosis without evidence of diverticulit is. Location code: [facility] Electronically Sig garfield by Marlyn Mooney on 09/04/2019 at 1612 Reported and signed by: Lamin Mooney M.D. CC: Luan Guzman MD; Herman Preston; Destin Almaraz MD Technolog ist:Kellee Louie RT(R),CT CTDI: DLP: Trnscb Date/Time: 0 09/04/2019 (161) t.SDR.GRW Orig Print D/T: S: 09/04/2019 (9365) PAGE 1 Signed Report FE W/TOTAL IRON BINDING CAP.2019-09-04 15:46:00* Test Item Value Reference Range Interpretation Comments SERUM IRON (test code = IRON) 30 ug/dL 50-175 L TOTAL IRON BINDING CAPACITY (test code = TIBC) 271 mcg/dL 250-450 N IRON SATURATION (test code = FESAT) 11.07 % 13-45 L [id number] 15:46:00* Test Item Value Reference Range Interpretation Comments FERRITIN (test code = KI) 71 ng/mL 8-388 N CBC W/AUTO [id number] 14:30:00* Test Item Value Reference Range Interpretation Comments WHITE BLOOD CELL (test code = WBC) 8.3 K/mm3 4.5-12.5 N RED BLOOD CELL (test code = RBC) 2.48 mill/mm3 4.0-5.8 L HEMOGLOBIN (test code = HGB) 6.8 gram/dL 13.0-17.5 L HEMATOCRIT (test code = HCT) 22.2 % 42.0-52.0 L MEAN CELL VOLUME (test code = MCV) 89.5 fL 80-98 N MEAN CELL HGB (test code = MCH) 27.4 picogram 27.0-33.0 N MEAN CELL HGB CONCETRATION (test code = MCHC) 30.6 gram/dL 33.0-36. 0 L RED CELL DISTRIBUTION WIDTH (test code = RDW) 13.1 % 11.6-16. 2 N RED CELL DISTRIBUTION WIDTH SD (test code = RDW-SD) 42.7 fL 37 .0-51.0 N PLATELET COUNT (test code = PLT) 253 K/mm3 150-450 N MEAN PLATELET VOLUME (test code = MPV) 10.5 fL 6.7-11.0 N NEUTROPHIL % (test code = NT%) 67.3 % 39.0-69.0 N IMMATURE GRANULOCYTE % (test code = IG%) 0.5 % 0.0-5.0 N LYMPHOCYTE % (test code = LY%) 21.1 % 25.0-55.0 L MONOCYTE % (test code = MO%) 8.4 % 0.0-10.0 N EOSINOPHIL % (test code = EO%) 2.3 % 0.0-5.0 N BASOPHIL % (test code = BA%) 0.4 % 0.0-1.0 N NUCLEATED RBC % (test code = NRBC%) 0.0 % 0-0 N NEUTROPHIL # (test code = NT#) 5.61 K/mm3 1.8-7.7 N IMMATURE GRANULOCYTE # (test code = IG#) 0.04 x10 3/uL 0-0.03 H LYMPHOCYTE # (test code = LY#) 1.76 K/mm3 1.0-5.0 N MONOCYTE # (test code = MO#) 0.70 K/mm3 0-0.8 N EOSINOPHIL # (test code = EO#) 0.19 K/mm3 0.0-0.5 N BASOPHIL # (test code = BA#) 0.03 K/mm3 0.0-0.2 N NUCLEATED RBC # (test code = NRBC#) 0.00 K/mm3 0.0-0.1 N MANUAL DIFF REQUIRED (test code = MDIFF) NO [id number] 13:55:00* Test Item Value Reference Range Interpretation Comments GLUBED (test code = GLUBED) 237 mg/dL 74-106 H Performed by certified plastic machine operator at [facility] [id number] 06:18:00* Test Item Value Reference Range Interpretation Comments GLUBED (test code = GLUBED) 118 mg/dL 74-106 H Performed by certified plastic machine operator at [facility] RENAL FUNCTION [id number] 05:02:00* Test Item Value Reference Range Interpretation Comments SODIUM (test code = NA) 144 mmol/L 136-145 N POTASSIUM (test code = K) 4.0 mmol/L 3.5-5.1 N CHLORIDE (test code = CL) 111.0 mmol/L 98-107 H CARBON DIOXIDE (test code = CO2) 23.0 mmol/L 21-32 N ANION GAP (test code = GAP) 14.0 10-20 N GLUCOSE (test code = GLU) 136 mg/dL 74-106 H BLOOD UREA NITROGEN (test code = BUN) 86 mg/dL 7-18 H CREATININE (test code = CREAT) 5.30 mg/dL 0.7-1.3 H ALBUMIN (test code = ALB) 2.3 g/dL 3.4-5.0 L CALCIUM (test code = CA) 6.6 mg/dL 8.5-10.1 L Res ults called to by [email or web address] 09/04/19 0502Critical results verified and read back by Nurse? PHOSPHORUS (test code = PHOS) 6.1 mg/dL 2.5-4.9 H RENAL FUNCTION [id number] 04:41:00* Test Item Value Reference Range Interpretation Comments SODIUM (test code = NA) 144 mmol/L 136-145 N POTASSIUM (test code = K) 4.0 mmol/L 3.5-5.1 N CHLORIDE (test code = CL) 111.0 mmol/L 98-107 H CARBON DIOXIDE (test code = CO2) mmol/L 21-32 ANION GAP (test code = GAP) 10-20 GLUCOSE (test code = GLU) mg/dL 74-106 BLOOD UREA NITROGEN (test code = BUN) mg/dL 7-18 CREATININE (test code = CREAT) mg/dL 0.7-1.3 ALBUMIN (test code = ALB) g/dL 3.4-5.0 CALCIUM (test code = CA) mg/dL 8.5-10.1 PHOSPHORUS (test code = PHOS) mg/dL 2.5-4.9 AG HEPAT B [id number] 23:10:00* Test Item Value Reference Range Interpretation Comments AG HEPAT B SURF (test code = HBSAG) Nonreactive Index Nonreactive [id number] 20:29:00* Test Item Value Reference Range Interpretation Comments GLUBED (test code = GLUBED) 197 mg/dL 74-106 H Performed by certified plastic machine operator at [facility] [id number] 19:30:00* Test Item Value Reference Range Interpretation Comments TROPONIN-I (test code = TROPI) 0.213 ng/mL 0-0.045 Results previously called COMMENTS TO URBAN FORESTER: COLLECT 3 HOURS AFTER PREVIOUS [id number] 14:31:00* Test Item Value Reference Range Interpretation Comments TROPONIN-I (test code = TROPI) 0.227 ng/mL 0-0.045 Results called to [id number] by PARKER 09/03/19 1430Critical results verified and read back by Nurse? Y COMMENTS TO URBAN FORESTER: COLLECT 3 HOURS AFTER PREVIOUS SAMPLECBC W/O [id number] 04:32:00* Test Item Value Reference Range Interpretation Comments WHITE BLOOD CELL (test code = WBC) 13.5 K/mm3 4.5-12.5 H RED BLOOD CELL (test code = RBC) 2.83 mill/mm3 4.0-5.8 L HEMOGLOBIN (test code = HGB) 7.8 gram/dL 13.0-17.5 L HEMATOCRIT (test code = HCT) 24.7 % 42.0-52.0 L MEAN CELL VOLUME (test code = MCV) 87.3 fL 80-98 N MEAN CELL HGB (test code = MCH) 27.6 picogram 27.0-33.0 N MEAN CELL HGB CONCETRATION (test code = MCHC) 31.6 gram/dL 33.0-36. 0 L RED CELL DISTRIBUTION WIDTH (test code = RDW) 13.3 % 11.6-16. 2 N RED CELL DISTRIBUTION WIDTH SD (test code = RDW-SD) 43.5 fL 37 .0-51.0 N PLATELET COUNT (test code = PLT) 273 K/mm3 150-450 N MEAN PLATELET VOLUME (test code = MPV) 10.5 fL 6.7-11.0 N B-TYPE NATRIURETIC [id number] 04:30:00* Test Item Value Reference Range Interpretation Comments B-TYPE NATRIURETIC PEPTIDE (test code = BNP) 696 pg/mL 0-100 H BASIC METABOLIC [id number] 04:29:00* Test Item Value Reference Range Interpretation Comments SODIUM (test code = NA) 141 mmol/L 128-145 N POTASSIUM (test code = K) 4.3 mmol/L 3.5-5.1 N CHLORIDE (test code = CL) 105.0 mmol/L 98-107 N CARBON DIOXIDE (test code = CO2) 23.1 mmol/L 22-29 N ANION GAP (test code = GAP) 17 mmol/L 10-20 N GLUCOSE (test code = GLU) 173 mg/dL 70-110 H BLOOD UREA NITROGEN (test code = BUN) 86 mg/dL 7-22 H GLOMERULAR FILTRATION RATE (test code = GFR) 11 mL/min >=60 Estimated GFR by using Modified MDRD formula.Chronic kidney disease is defined as either kidney damageor GFR <60 mL/min/1.73 m2 for >3 months. CREATININE (test code = CREAT) 5.34 mg/dL 0.55-1.3 H BUN/CREATININE RATIO (test code = BUN/CREA) 16.1 10-20 N CALCIUM (test code = CA) 6.2 mg/dL 8.0-10.5 LL HEPATIC FUNCTION [id number] 04:29:00* Test Item Value Reference Range Interpretation Comments TOTAL PROTEIN (test code = PROT) 7.1 gram/dL 6.1-7.8 N ALBUMIN (test code = ALB) 2.8 g/dL 3.3-4.4 L GLOBULIN (test code = GLOB) 4.3 G/DL 1-10 N ALBUMIN/GLOBULIN RATIO (test code = A/G) 0.7 0.75-1.50 L BILIRUBIN TOTAL (test code = BILT) 0.30 mg/dL 0.2-1.2 N BILIRUBIN DIRECT (test code = BILD) 0.10 mg/dL 0.0-0.30 N SGOT/AST (test code = AST) 34 U/L 10-39 N SGPT/ALT (test code = ALT) 49 U/L 10-69 N ALKALINE PHOSPHATASE TOTAL (test code = ALKP) 202 U/L 50-139 H [id number] 04:29:00* Test Item Value Reference Range Interpretation Comments LIPASE (test code = LIP) 117 Unit/L 144-286 L [id number] 04:29:00* Test Item Value Reference Range Interpretation Comments TROPONIN-I (test code = TROPI) 0.02 ng/mL 0.00-0.056 N PROTHROMBIN [id number] 04:27:00* Test Item Value Reference Range Interpretation Comments PROTHROMBIN TIME PATIENT (test code = PTP) 10.3 seconds 9.0-13.0 N INTERNATIONAL NORMAL RATIO (test code = INR) 1.1 0.8-1.2 N The therapeutic range for oral anticoagulant therapy formost indications is an international normalized ratio (INR)of between 2.0 and 3.0. The recommended therapeutic INRrange for various clinical situations is listed below: Clinical Situation INR range Pulmonary e mbolism treatment (2.0-3.0)Venous thrombosis treatmentVenous thrombosis prophylaxis (high risk surgery)Prevention of systemic embolism from: Acute myocardial infarction Valvular heart disease Atrial fibrillation Mechanical prosthetic heart valves (2.5-3.5) IS PATIENT ON ANTICOAGULANTS? NTHROMBOPLASTIN TIME [id number] 04:27:00* Test Item Value Reference Range Interpretation Comments THROMBOPLASTIN TIME PARTIAL (test code = PTT) 27.5 seconds 25.5-34. 3 N Therapeutic Range for patients on Heparin Therapy is 2 to2.5 times their baseline PTT level. IS PATIENT ON ANTICOAGULANTS? NBASIC METABOLIC [id number] 04:23:00* Test Item Value Reference Range Interpretation Comments SODIUM (test code = NA) 141 mmol/L 128-145 N POTASSIUM (test code = K) 4.3 mmol/L 3.5-5.1 N CHLORIDE (test code = CL) 105.0 mmol/L 98-107 N CARBON DIOXIDE (test code = CO2) 23.1 mmol/L 22-29 N ANION GAP (test code = GAP) 17 mmol/L 10-20 N GLUCOSE (test code = GLU) 173 mg/dL 70-110 H BLOOD UREA NITROGEN (test code = BUN) 86 mg/dL 7-22 H GLOMERULAR FILTRATION RATE (test code = GFR) 11 mL/min >=60 Estimated GFR by using Modified MDRD formula.Chronic kidney disease is defined as either kidney damageor GFR <60 mL/min/1.73 m2 for >3 months. CREATININE (test code = CREAT) 5.34 mg/dL 0.55-1.3 H BUN/CREATININE RATIO (test code = BUN/CREA) 16.1 10-20 N CALCIUM (test code = CA) 6.2 mg/dL 8.0-10.5 LL HEPATIC FUNCTION [id number] 04:23:00* Test Item Value Reference Range Interpretation Comments TOTAL PROTEIN (test code = PROT) gram/dL 6.4-8.2 ALBUMIN (test code = ALB) g/dL 3.4-5.0 GLOBULIN (test code = GLOB) G/DL 1-10 ALBUMIN/GLOBULIN RATIO (test code = A/G) 0.75-1.50 BILIRUBIN TOTAL (test code = BILT) mg/dL 0.0-1.0 BILIRUBIN DIRECT (test code = BILD) mg/dL 0.0-0.20 SGOT/AST (test code = AST) IUnit/L 15-37 SGPT/ALT (test code = ALT) IUnit/L 12-78 ALKALINE PHOSPHATASE TOTAL (test code = ALKP) IUnit/L 45-117 [id number] 04:23:00* Test Item Value Reference Range Interpretation Comments LIPASE (test code = LIP) U/L 73.0-393.0 [id number] 04:23:00* Test Item Value Reference Range Interpretation Comments TROPONIN-I (test code = TROPI) ng/mL 0-0.045 - XR CHEST 1 [id number] 04:19:00 FAX: Roc Parisi MD [phone] [place]: [place] St: REG FAX: Muriel Jacob [phone] Name: NIKO BUSTILLO JR [facility] FSED : 1955 Age/S: 64/M [address] Unit #: [id number] Loc: [facility] [address] Phys: Roc Amaro MD [place], [place] [address] Acct: [id number] Dis Date: Status: REG ER PHONE #: Exam Date: 09/03/2019417 FAX #: Reason: CHEST PAIN EXAMS: CPT CODE: [id number] XR CHEST 1 V 85762 - XR CHEST 1 V, 09/03/2019 3:57 AM Reason For Examination: CHEST PAIN Comparison: February 2016 Location: R16 Findings LUNGS: Low lung volumes limit evaluation. Likely moderate pulmonary edema although underlying consolidation difficult to exclude PLEURA: No pleural effusions CARDIOMEDIASTINAL SILHOUETTE Mildly Enlarged IMPRESSION: Mildly enlarged cardiac silhouette Low lung volumes limit evaluation. Likely moderate pulmonary edema although underlying consolidation difficult to exclude at 0419 Reported and signed by: Mariah Lyons M.D. CC: Roc Amaro MD; Herman Jacob MD Technologist: Lauri Winters Trnscrd Date/Time/By: 09/03/2019 (0419) : By: [email or web address] Orig Print D/T: S: 09/03/2019 (0422) PAGE 1 Signed Report Comprehensive metabolic [id number] 16:41:22* Test Item Value Reference Range Interpretation Comments Sodium (test code = 2951-2) 138 135- 150 mEq/L Potassium (test code = 2823-3) 5.1 3.5- 5.0 mEq/L H Chloride (test code = 2074-0) 105 98- 112 mEq/L CO2 (test code = 2028-04) 15 mmol/L 24-31 L Anion gap (test code = 62987-3) 18@ANIO 7- 15 mEq/L H BUN (test code = 3094-0) 93 mg/dL 7-18 H Creatinine (test code = 2160-0) 5.20 mg/dL 0.7-1.2 H Glucose (test code = 2345-7) 164 mg/dL 65-100 H Calcium (test code = 32959-2) 7.0 mg/dL 8.8-10.2 L Protein (test code = 2885-2) 6.5 g/dL 6.3-8.3 Albumin (test code = 1751-7) 3.1 g/dL 3.5-5 L A/G ratio (test code = 1759-0) 0.9 0.7-3.8 Alkaline phosphatase (test code = 6768-6) 103 U/L 0-129 AST (test code = 1920-8) 17 U/L 10-50 ALT (test code = 1742-6) 9 U/L 5-50 Total bilirubin (test code = 1975-2) <0.3 0.2-1.2 Lab Interpretation (test code = 50897-7) Abnormal [facility] MethodistLipase [id number] 16:41:21* Test Item Value Reference Range Interpretation Comments Lipase (test code = 3040-3) 33 U/L 13-60 [facility] MethodistEstimated [id number] 16:41:21* Test Item Value Reference Range Interpretation Comments Estimated GFR (test code = 5488) 11 mL/min/1.73 m2 A Catergory Units InterpretationG1 >=90 Normal or highG2 60-89 Mildly wytrkydkfP2n 45-59 Mildly to moderately dooyrnaufR1x 30-44 Moderately to severely decreasedG4 15-29 Severely decreasedG5 <15 Kidney failureThe eGFR was calculated using the Chronic Kidney Disease Epidemiology Collaboration (CKD-EPI) equation. Interpretation is based on recommendations of the National Kidney Foundation-Kidney Disease Outcomes Quality Initiative (NKF-KDOQI) published in 2014. Lab Interpretation (test code = 37354-6) Abnormal Sawyer MethodistUrinalysis screen and microscopy, with reflex to culture 2019-07-03 16:37:50* Test Item Value Reference Range Interpretation Comments Specimen site (test code = 4634845) Clean catch Color, UA (test code = 5778-6) Yellow Appearance, UA (test code = 5767-9) Slightly-Cloudy Specific gravity, UA (test code = 5811-5) 1.015 1.001-1.035 pH, UA (test code = 5803-2) 5.0 5.0-8.5 Protein, UA (test code = 97444-4) 3+ Negative A Glucose, UA (test code = 26019-5) 1+ Negative A Ketones, UA (test code = 2514-8) Negative Negative Bilirubin, UA (test code = 5770-3) Negative Negative Blood, UA (test code = 5794-3) Negative Negative Nitrite, UA (test code = 5802-4) Negative Negative Urobilinogen, UA (test code = 05838-4) Negative <2.0 Leukocyte esterase, UA (test code = 5799-2) Negative Negative WBC, UA (test code = 5821-4) None seen 0- 1 /HPF RBC, UA (test code = 61618-5) 3 0- 5 /HPF Bacteria, UA (test code = 59125-3) Trace None seen Yeast, UA (test code = 30823-0) None seen Yeast with pseudohyphae, UA (test code = 72519-1) None seen Lab Interpretation (test code = 68313-7) Abnormal [facility] with platelet and [id number] 16:21:01* Test Item Value Reference Range Interpretation Comments WBC (test code = 82976-0) 7.6 4.2- 11.0 k/uL RBC (test code = 31201-2) 2.97 m/uL 4.04-5.86 L HGB (test code = 718-7) 8.1 g/dL 13-17.3 L HCT (test code = 4544-3) 26.5 % 34-45 L MCV (test code = 787-2) 89.2 fL 80-98 MCH (test code = 785-6) 27.3 pg 27-34 MCHC (test code = 786-4) 30.6 g/dL 31.5-36.5 L RDW - SD (test code = 87585-9) 46.1 fL 37-51 MPV (test code = 47335-2) 11.1 fL 7.4-10.4 H Platelet count (test code = 59705-4) 240 150- 400 k/uL Nucleated RBC (test code = 01421-6) 0.00 /100 WBC Neutrophils (test code = 31428-7) 62.5 % 36-66 Lymphocytes (test code = 68854-5) 26.3 % 24-44 Monocytes (test code = 09573-4) 8.5 % 0-6 H Eosinophils (test code = 89656-2) 2.0 % 0-6 Basophils (test code = 35020-9) 0.4 % 0-1.2 Immature granulocytes (test code = 62855-5) 0.3 % 0-1 Lab Interpretation (test code = 68756-0) Abnormal Ronnie Mcfarland
--- OUTSIDE RECORDS SUMMARY | 2020-03-22 19:11 | XMS REPORT | Clinical Summary ---
Author Author CHARLES [facility] Address Unknown Phone Unavailable Care Team Providers Care It Operations Analyst Name Role Phone Herman Preston MD PCP Allergies No Known Allergies Medications End Date Status Medication Sig Dispensed Refills Start Date Active multivitamin (DAILY DIET daily. 0 SUPPORT ORAL) Active atorvastatin (LIPITOR) 80 daily. 0 08/24 MG tablet 0 Active NIFEdipine (PROCARDIA-XL) Take 60 mg by 0 60 MG (OSM) 24 hr tablet mouth daily. Active metoprolol (TOPROL-XL) 50 TK 1 T PO 2 08/23 MG 24 hr tablet ONCE D 0 Active chlorthalidone (HYGROTON) daily. 3 08/23 25 MG tablet 0 Active HYDROcodone-acetaminophen as needed. 0 08/24 (NORCO 7.5-325) 7.5-325 0 mg per tablet Active insulin degludec (TRESIBA 16 Units 0 FLEXTOUCH U-200) 200 daily. unit/mL (3 mL) InPn Active ferrous fumarate 325 mg 650 mg daily. 0 (106 mg iron) Tab Active calcium carbonate (TUMS) Take 1 tablet 0 500 mg chewable by mouth tabletIndications: 2 tabs daily. BID Active Problems Problem Noted Date ESRD (end stage renal disease) on dialysis 0 Overview: currently on HD; planned transition to [facility] Diabetic retinopathy 08/23/2018 Overview: Bilateral; s/p laser surgery to L eye; pending to R eye Diabetes mellitus 08/23/2013 Hyperlipidemia 08/23/2013 Hypertension 08/23/1989 Encounters Care Team Description Date Type Specialty Soledad Bowser 11/30/2019 Documentation Transplant Soraya Camacho Appointment 11/24/2019 Telephone Transplant Makenna Ferguson 11/15/2019 Telephone Hepatology Makenna Ferguson Appointment 11/15/2019 Telephone Hepatology Diana Dobbs MD CKD (chronic kidney disease), stage IV ( HCC); Hypertensive renal disease; Diabetes mellitus due to underlying condition with chronic kidney disease on chronic dialysis, without long-term current use of insulin (HCC); Pre-transplant evaluation for chronic kidney disease 10/18/2019 Hospital Cardiology Encounter Diana Dobbs MD CKD (chronic kidney disease), stage IV ( HCC); Hypertensive renal disease; Diabetes mellitus due to underlying condition with chronic kidney disease on chronic dialysis, without long-term current use of insulin (HCC); Pre-transplant evaluation for chronic kidney disease 10/18/2019 [facility] Cardiology Encounter Diana Dobbs MD CKD (chronic kidney disease), stage IV ( HCC); Hypertensive renal disease; Diabetes mellitus due to underlying condition with chronic kidney disease on chronic dialysis, without long-term current use of insulin (HCC); Pre-transplant evaluation for chronic kidney disease 10/18/2019 Hospital Encounter Diana Dobbs MD CKD (chronic kidney disease), stage IV ( HCC); Hypertensive renal disease; Diabetes mellitus due to underlying condition with chronic kidney disease on chronic dialysis, without long-term current use of insulin (HCC); Pre-transplant evaluation for chronic kidney disease 10/18/2019 [facility] Radiology Encounter Diana Dobbs MD CKD (chronic kidney disease), stage IV ( HCC); Hypertensive renal disease; Diabetes mellitus due to underlying condition with chronic kidney disease on chronic dialysis, without long-term current use of insulin (HCC); Pre-transplant evaluation for chronic kidney disease 10/18/2019 Orders Only Lab Herman Preston MD 10/18/2019 Outside Orders Bella Saleh RPH 09/28/2019 Documentation Pharmacy Diana Dobbs MD Pre-transplant evaluation for chronic ki dney disease (Primary Dx) 09/27/2019 Evaluation Transplant Diana Dobbs MD Pre-transplant evaluation for chronic ki dney disease (Primary Dx); Essential hypertension; Type 2 diabetes mellitus with chronic kidney disease on chronic dialysis, unspecified whether 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 project manager insulin use (HCC); Diabetic retinopathy of both eyes without macular edema associated with diabetes mellitus due to underlying condition, unspecified retinopathy severity (HCC); ESRD (end stage renal disease) on dialysis (HCC); Other hyperlipidemia 09/27/2019 Evaluation Transplant Diana Dobbs MD Labrador, Florencia P, RN CKD (chronic kidney disease), stage IV ( HCC) (Primary Dx); Hypertensive renal disease; Diabetes mellitus due to underlying condition with chronic kidney disease on chronic dialysis, without long-term current use of insulin (HCC); Pre-transplant evaluation for chronic kidney disease 09/27/2019 Office Visit Transplant Diana Dobbs MD CKD (chronic kidney disease), stage IV ( HCC); Hypertensive renal disease; Diabetes mellitus due to underlying condition with chronic kidney disease on chronic dialysis, without long-term current use of insulin (HCC); Pre-transplant evaluation for chronic kidney disease 09/27/2019 Orders Only Transplant Hepatolo gy Soledad Bowser 08/18/2019 Abstract Transplant Soledad Bowser 08/04/2019 Abstract Transplant Soledad Bowser 08/04/2019 Abstract Transplant Soledad Bowser 08/04/2019 Abstract Transplant after 03/19/2019 Family History Medical History Relation Name Comments Diabetes Brother Hypertension Brother Diabetes Mother Hypertension Mother Relation Name Status Comments Brother Mother Social History Date Tobacco Use Types Packs/Day Years Used Never Smoker Smokeless Tobacco: Never Used Tobacco Cessation: Counseling Given: Yes Alcohol Use Drinks/Week oz/Week Comments No Alcohol Habits Answer Date Recorded How often do you have a drink containing alcohol? Never 09/27/2019 How many drinks containing alcohol do you have on No t asked a typical day when you are drinking? How often do you have six or more drinks on one Not asked occasion? Sex Assigned at Date Recorded Not on file Industry Job Start Date Occupation Not on file Not on file Not on file Travel End Travel History Travel Start No recent travel history available. Last Filed Vital Signs Time Taken Vital Sign Reading 10/18/2019 11:23 AM ENLISTED ADVISOR Blood Pressure 173/70 10/18/2019 11:23 AM ENLISTED ADVISOR Pulse 90 09/27/2019 1:03 PM ENLISTED ADVISOR Temperature 36.6 C (97.9 F) 09/27/2019 1:03 PM ENLISTED ADVISOR Respiratory Rate 18 - Oxygen Saturation - - Inhaled Oxygen - Concentration 10/18/2019 9:00 AM ENLISTED ADVISOR Weight 79.8 kg (176 lb) 10/18/2019 9:00 AM ENLISTED ADVISOR Height 167.6 cm (5' 6") 10/18/2019 9:00 AM ENLISTED ADVISOR Body Mass Index 28.41 Plan of Treatment Health Maintenance Due Date Last Done Comments COLON CANCER SCREENING 1955 COLONOSCOPY DIABETIC EYE EXAM 1967 DIABETIC FOOT EXAM 1965 URINE MICROALBUMIN 1965 MEDICARE ANNUAL WELLNESS 08/24/2019 (YEAR 2 or FIRST YEAR if no IPPE) HEMOGLOBIN A1C 04/17/2020 10/18/2019 INFLUENZA VACCINE (#1) 2020 05/22/2017 PNEUMOCOCCAL VACCINE 2-64 06/15/2021 06/15/2016, 02/08/2015 YEARS AT RISK (3 of 3 - PPSV23) Procedures Comments Procedure Name Priority Date/Time Associated Diag nosis PERIPHERAL VASCULAR 10/19/2019 REPORT - SCAN 9:22 PM ENLISTED ADVISOR ECHOCARDIOGRAM REPORT - 10/19/2019 SCAN 9:20 PM ENLISTED ADVISOR TRANSFUSION SERVICE 10/19/2019 REPORT - SCAN 6:05 PM ENLISTED ADVISOR STRESS ECHO Routine 10/18/2019 CKD (chronic ki dney 11:08 AM ENLISTED ADVISOR disease), stage IV (HCC) Hypertensive renal disease Diabetes mellitus due to underlying condition with chronic kidney disease on chronic dialysis, without long-term current use of insulin (HCC) Pre-transplant evaluation for chronic kidney disease 2D ECHO W/ DOPPLER Routine 10/18/2019 CKD (chroni c kidney (CW/PW/COLOR) 10:28 AM ENLISTED ADVISOR disease), stage IV (HCC) Hypertensive renal disease Diabetes mellitus due to underlying condition with chronic kidney disease on chronic dialysis, without long-term current use of insulin (HCC) Pre-transplant evaluation for chronic kidney disease TREADMILL Routine 10/18/2019 TOLERANCE(NON-NUCLEAR 10:00 AM ENLISTED ADVISOR TREADMILL) ECG 12-LEAD Routine 10/18/2019 CKD (chronic ki dney 9:18 AM ENLISTED ADVISOR disease), stage IV (HCC) Hypertensive renal disease Diabetes mellitus due to underlying condition with chronic kidney disease on chronic dialysis, without long-term current use of insulin (HCC) Pre-transplant evaluation for chronic kidney disease XR CHEST 2 VIEWS Routine 10/18/2019 CKD (chronic kidney 8:56 AM ENLISTED ADVISOR disease), stage IV (HCC) Hypertensive renal disease Diabetes mellitus due to underlying condition with chronic kidney disease on chronic dialysis, without long-term current use of insulin (HCC) Pre-transplant evaluation for chronic kidney disease US ABDOMEN COMPLETE Routine 10/18/2019 CKD (chron ic kidney 8:07 AM ENLISTED ADVISOR disease), stage IV (HCC) Hypertensive renal disease Diabetes mellitus due to underlying condition with chronic kidney disease on chronic dialysis, without long-term current use of insulin (HCC) Pre-transplant evaluation for chronic kidney disease BLOOD TYPING, AUTOMATED Routine 10/18/2019 CKD (c hronic kidney 7:13 AM ENLISTED ADVISOR disease), stage IV (HCC) Hypertensive renal disease Diabetes mellitus due to underlying condition with chronic kidney disease on chronic dialysis, without long-term current use of insulin (HCC) Pre-transplant evaluation for chronic kidney disease HEMOGLOBIN A1C Routine 10/18/2019 CKD (chronic ki dney 7:13 AM ENLISTED ADVISOR disease), stage IV (HCC) Hypertensive renal disease Diabetes mellitus due to underlying condition with chronic kidney disease on chronic dialysis, without long-term current use of insulin (HCC) Pre-transplant evaluation for chronic kidney disease LIPID PANEL Routine 10/18/2019 CKD (chronic ki dney 7:13 AM ENLISTED ADVISOR disease), stage IV (HCC) Hypertensive renal disease Diabetes mellitus due to underlying condition with chronic kidney disease on chronic dialysis, without long-term current use of insulin (HCC) Pre-transplant evaluation for chronic kidney disease PSA Routine 10/18/2019 CKD (chronic ki dney 7:13 AM ENLISTED ADVISOR disease), stage IV (HCC) Hypertensive renal disease Diabetes mellitus due to underlying condition with chronic kidney disease on chronic dialysis, without long-term current use of insulin (HCC) Pre-transplant evaluation for chronic kidney disease TRANSFUSION SERVICE 09/28/2019 REPORT - SCAN 6:07 PM ENLISTED ADVISOR BLOOD TYPING, AUTOMATED Routine 09/27/2019 CKD (c hronic kidney 11:50 AM ENLISTED ADVISOR disease), stage IV (HCC) Hypertensive renal disease Diabetes mellitus due to underlying condition with chronic kidney disease on chronic dialysis, without long-term current use of insulin (HCC) Pre-transplant evaluation for chronic kidney disease DIRECT AHG (JOHNNY)/DIRECT Routine 09/27/2019 CKD (c hronic kidney SERGIO 11:50 AM ENLISTED ADVISOR disease), stage IV (HCC) Hypertensive renal disease Diabetes mellitus due to underlying condition with chronic kidney disease on chronic dialysis, without long-term current use of insulin (HCC) Pre-transplant evaluation for chronic kidney disease HLA TYPING CII Routine 09/27/2019 CKD (chronic ki dney 11:50 AM ENLISTED ADVISOR disease), stage IV (HCC) Hypertensive renal disease Diabetes mellitus due to underlying condition with chronic kidney disease on chronic dialysis, without long-term current use of insulin (HCC) Pre-transplant evaluation for chronic kidney disease HLA TYPING CI Routine 09/27/2019 CKD (chronic ki dney 11:50 AM ENLISTED ADVISOR disease), stage IV (HCC) Hypertensive renal disease Diabetes mellitus due to underlying condition with chronic kidney disease on chronic dialysis, without long-term current use of insulin (HCC) Pre-transplant evaluation for chronic kidney disease T SPOT TB Routine 09/27/2019 CKD (chronic ki dney 11:50 AM ENLISTED ADVISOR disease), stage IV (HCC) Hypertensive renal disease Diabetes mellitus due to underlying condition with chronic kidney disease on chronic dialysis, without long-term current use of insulin (HCC) Pre-transplant evaluation for chronic kidney disease PTH, INTACT Routine 09/27/2019 CKD (chronic ki dney 11:50 AM ENLISTED ADVISOR disease), stage IV (HCC) Hypertensive renal disease Diabetes mellitus due to underlying condition with chronic kidney disease on chronic dialysis, without long-term current use of insulin (HCC) Pre-transplant evaluation for chronic kidney disease HIV-1 ANTIGEN WITH Routine 09/27/2019 CKD (chroni c kidney HIV-1/2 ANTIBODY 11:50 AM ENLISTED ADVISOR disease), stage IV (HCC) Hypertensive renal disease Diabetes mellitus due to underlying condition with chronic kidney disease on chronic dialysis, without long-term current use of insulin (HCC) Pre-transplant evaluation for chronic kidney disease HEPATITIS C ANTIBODY Routine 09/27/2019 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 ENLISTED ADVISOR disease), stage IV (HCC) Hypertensive renal disease Diabetes mellitus due to underlying condition with chronic kidney disease on chronic dialysis, without long-term current use of insulin (HCC) Pre-transplant evaluation for chronic kidney disease HEPATITIS B CORE Routine 09/27/2019 CKD (chronic kidney ANTIBODY, IGM 11:50 AM ENLISTED ADVISOR disease), stage IV (HCC) Hypertensive renal disease Diabetes mellitus due to underlying condition with chronic kidney disease on chronic dialysis, without long-term current use of insulin (HCC) Pre-transplant evaluation for chronic kidney disease HEPATITIS B SURFACE Routine 09/27/2019 CKD (chron ic kidney ANTIGEN 11:50 AM ENLISTED ADVISOR disease), stage IV (HCC) Hypertensive renal disease Diabetes mellitus due to underlying condition with chronic kidney disease on chronic dialysis, without long-term current use of insulin (HCC) Pre-transplant evaluation for chronic kidney disease HEPATITIS B SURFACE Routine 09/27/2019 CKD (chron ic kidney ANTIBODY 11:50 AM ENLISTED ADVISOR disease), stage IV (HCC) Hypertensive renal disease Diabetes mellitus due to underlying condition with chronic kidney disease on chronic dialysis, without long-term current use of insulin (HCC) Pre-transplant evaluation for chronic kidney disease CBC W/PLT COUNT & AUTO Routine 09/27/2019 CKD (ch ronic kidney DIFFERENTIAL 11:49 AM ENLISTED ADVISOR disease), stage IV (HCC) Hypertensive renal disease Diabetes mellitus due to underlying condition with chronic kidney disease on chronic dialysis, without long-term current use of insulin (HCC) Pre-transplant evaluation for chronic kidney disease AB SPECIFICITY CLASS I Routine 09/27/2019 CKD (ch ronic kidney 11:49 AM ENLISTED ADVISOR disease), stage IV (HCC) Hypertensive renal disease Diabetes mellitus due to underlying condition with chronic kidney disease on chronic dialysis, without long-term current use of insulin (HCC) Pre-transplant evaluation for chronic kidney disease TREPONEMA PALLIDUM - Routine 09/27/2019 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 IGG 11:49 AM ENLISTED ADVISOR disease), stage IV (HCC) Hypertensive renal disease Diabetes mellitus due to underlying condition with chronic kidney disease on chronic dialysis, without long-term current use of insulin (HCC) Pre-transplant evaluation for chronic kidney disease RPR TITER Routine 09/27/2019 CKD (chronic ki dney 11:49 AM ENLISTED ADVISOR disease), stage IV (HCC) Hypertensive renal disease Diabetes mellitus due to underlying condition with chronic kidney disease on chronic dialysis, without long-term current use of insulin (HCC) Pre-transplant evaluation for chronic kidney disease FLOW PRA CLASS II WITH Routine 09/27/2019 CKD (ch ronic kidney REFLEX TO ANTIBODY 11:49 AM ENLISTED ADVISOR disease), stage IV (HCC) SPECIFICITY Hypertensive renal disease Diabetes mellitus due to underlying condition with chronic kidney disease on chronic dialysis, without long-term current use of insulin (HCC) Pre-transplant evaluation for chronic kidney disease FLOW PRA CLASS I WITH Routine 09/27/2019 CKD (chr onic kidney REFLEX TO ANTIBODY 11:49 AM ENLISTED ADVISOR disease), stage IV (HCC) SPECIFICITY Hypertensive renal disease Diabetes mellitus due to underlying condition with chronic kidney disease on chronic dialysis, without long-term current use of insulin (HCC) Pre-transplant evaluation for chronic kidney disease VARICELLA ZOSTER Routine 09/27/2019 CKD (chronic kidney ANTIBODY, IGG 11:49 AM ENLISTED ADVISOR disease), stage IV (HCC) Hypertensive renal disease Diabetes mellitus due to underlying condition with chronic kidney disease on chronic dialysis, without long-term current use of insulin (HCC) Pre-transplant evaluation for chronic kidney disease URIC ACID Routine 09/27/2019 CKD (chronic ki dney 11:49 AM ENLISTED ADVISOR disease), stage IV (HCC) Hypertensive renal disease Diabetes mellitus due to underlying condition with chronic kidney disease on chronic dialysis, without long-term current use of insulin (HCC) Pre-transplant evaluation for chronic kidney disease RPR Routine 09/27/2019 CKD (chronic ki dney 11:49 AM ENLISTED ADVISOR disease), stage IV (HCC) Hypertensive renal disease Diabetes mellitus due to underlying condition with chronic kidney disease on chronic dialysis, without long-term current use of insulin (HCC) Pre-transplant evaluation for chronic kidney disease PT/APTT Routine 09/27/2019 CKD (chronic ki dney 11:49 AM ENLISTED ADVISOR disease), stage IV (HCC) Hypertensive renal disease Diabetes mellitus due to underlying condition with chronic kidney disease on chronic dialysis, without long-term current use of insulin (HCC) Pre-transplant evaluation for chronic kidney disease PHOSPHORUS Routine 09/27/2019 CKD (chronic ki dney 11:49 AM ENLISTED ADVISOR disease), stage IV (HCC) Hypertensive renal disease Diabetes mellitus due to underlying condition with chronic kidney disease on chronic dialysis, without long-term current use of insulin (HCC) Pre-transplant evaluation for chronic kidney disease LACTATE DEHYDROGENASE Routine 09/27/2019 CKD (chr onic kidney (LDH) 11:49 AM ENLISTED ADVISOR disease), stage IV (HCC) Hypertensive renal disease Diabetes mellitus due to underlying condition with chronic kidney disease on chronic dialysis, without long-term current use of insulin (HCC) Pre-transplant evaluation for chronic kidney disease GAMMA GLUTAMYL Routine 09/27/2019 CKD (chronic ki dney TRANSFERASE (GGT) 11:49 AM ENLISTED ADVISOR disease), stage IV (HCC) Hypertensive renal disease Diabetes mellitus due to underlying condition with chronic kidney disease on chronic dialysis, without long-term current use of insulin (HCC) Pre-transplant evaluation for chronic kidney disease EBV ANTIBODY, IGM Routine 09/27/2019 CKD (chronic kidney 11:49 AM ENLISTED ADVISOR disease), stage IV (HCC) Hypertensive renal disease Diabetes mellitus due to underlying condition with chronic kidney disease on chronic dialysis, without long-term current use of insulin (HCC) Pre-transplant evaluation for chronic kidney disease EBV ANTIBODY, IGG Routine 09/27/2019 CKD (chronic kidney 11:49 AM ENLISTED ADVISOR disease), stage IV (HCC) Hypertensive renal disease Diabetes mellitus due to underlying condition with chronic kidney disease on chronic dialysis, without long-term current use of insulin (HCC) Pre-transplant evaluation for chronic kidney disease COMPREHENSIVE METABOLIC Routine 09/27/2019 CKD (c hronic kidney PANEL 11:49 AM ENLISTED ADVISOR disease), stage IV (HCC) Hypertensive renal disease Diabetes mellitus due to underlying condition with chronic kidney disease on chronic dialysis, without long-term current use of insulin (HCC) Pre-transplant evaluation for chronic kidney disease CYTOMEGALOVIRUS ANTIBODY, Routine 09/27/2019 CKD (chronic kidney IGM 11:49 AM ENLISTED ADVISOR disease), stage IV (HCC) Hypertensive renal disease Diabetes mellitus due to underlying condition with chronic kidney disease on chronic dialysis, without long-term current use of insulin (HCC) Pre-transplant evaluation for chronic kidney disease CYTOMEGALOVIRUS ANTIBODY, Routine 09/27/2019 CKD (chronic kidney IGG 11:49 AM ENLISTED ADVISOR disease), stage IV (HCC) Hypertensive renal disease Diabetes mellitus due to underlying condition with chronic kidney disease on chronic dialysis, without long-term current use of insulin (HCC) Pre-transplant evaluation for chronic kidney disease CBC W/PLT COUNT & AUTO Routine 09/27/2019 CKD (ch ronic kidney DIFFERENTIAL 11:49 AM ENLISTED ADVISOR disease), stage IV (HCC) Hypertensive renal disease Diabetes mellitus due to underlying condition with chronic kidney disease on chronic dialysis, without long-term current use of insulin (HCC) Pre-transplant evaluation for chronic kidney disease after 03/19/2019 Results * PERIPHERAL VASCULAR REPORT - SCAN (10/19/2019 9:22 PM ENLISTED ADVISOR) Narrative Performed At This result has an attachment that is n ot available. * ECHOCARDIOGRAM REPORT - SCAN (10/19/2019 9:20 PM ENLISTED ADVISOR) Narrative Performed At This result has an attachment that is n ot available. * TRANSFUSION SERVICE REPORT - SCAN (10/19/2019 6:05 PM ENLISTED ADVISOR) Only the most recent of 2 results within the time period is included. Narrative Performed At This result has an attachment that is n ot available. * Stress Echo With Tracing (10/18/2019 11:08 AM ENLISTED ADVISOR) Ejection Fraction [facility] Specimen Narrative Performed At Stress Echocardiography Report [facility]ART[facility] Demographics [facility] Patient Name GARRET SEWELL ate of Study 10/18/2019 JR. [id number] GenderMale Visit Number [id number] [id number] [id number] Room Number Number Date of Birth1955 Referring Physician Dilia Aparicio Age64 year(s) Ramp Lead Edgar Briceno, Physician Fellow Keaton Morocho MD Procedure Type of Study Stress procedure:STRESS(T MT)ECHO W/TMT TRACING (Routine) Indications:Pre-surgical evaluation of organ transplant. Clinical History DM ESRD HTN HLD Contrast Medium: Definity. Height: 66 inches Weight: 79.83 kg (176 lbs) BSA: 1.89 m^2 BMI: 28.41 kg/m^2 HR: 65 bpm BP: 195/89 mmHg Rest ECG Sinus Rhythm. 1st Degree AV-block. Stress Stress Type: Pharmacologic Peak HR: 100 bpm HR BP Product: 60918 Peak BP: 206/78 mmHg Predicted HR: 158 bpm % of predicted HR: 63 Test Duration: 4:31 min Stress Interpretation Target HR was achieved (>85% peak predi cted HR). All segments contract normally at basel ine and at all stages of stress. Echocardiographically normal stress ech o. ECG portion notable for hemodynamically stable, asymptomatic sustained VT with rate up to 190s. Results ECG no significant ST-T wave changes. Patient developed hemodynamically stabl e, sustained VT lasting up to 1 min w/ HR up to 190. Arrhythmias sustained ventricular tachycardia Symptoms No symptoms during stress test. Stress Protocol: Pharmacologic - Dobuta mine +-----+-----+------+ +------+- ----+--------+--+--------+----+------+ !Stage!Time !Dosage!Other !Dosa ge!Heart!Blood !CP!Pain!Pain!Pain! !#! !!Medic ation!!Rate !Pressure!!Location!Type!Action! +-----+-----+------+ +------+- ----+--------+--+--------+----+------+ !1.0!03:21!10.00 ! !!88 !206/78!!! !! +-----+-----+------+ +------+- ----+--------+--+--------+----+------+ !2.0!04:25!20.00 !!!100!181/61!!! !! +-----+-----+------+ +------+- ----+--------+--+--------+----+------+ !3.0!04:31!30.00 ! !!96 !160/52!!! !! +-----+-----+------+ +------+- ----+--------+--+--------+----+------+ Summary This is a negative Echocardiographic St ress Test. Signature Procedure Note Interface, External Ris In - 10/19/2019 7:14 AM ENLISTED ADVISOR Stress Echocardiography Report Demographics Patient Name AUGUST SEWELL Date of Study 10/18/2019 Gender Male Visit Number [id number] Race Unknown Room Number Number Date of 1955 Referring Physician Dilia Aparicio Age 64 year(s) Ramp Lead Edgar Archibald Interpreting Holley Briceno Physician Fellow Keaton Morocho MD Procedure Type of Study Stress procedure:STRESS(TMT)ECHO W/TMT TRACING (Routine) Indications:Pre-surgical evaluation of organ transplant. Clinical History DM ESRD HTN HLD Contrast Medium: Definity. Height: 66 inches Weight: 79.83 kg (176 lbs) BSA: 1.89 m^2 BMI: 28.41 kg/m^2 HR: 65 bpm BP: 195/89 mmHg Rest ECG Sinus Rhythm. 1st Degree AV-block. Stress Stress Type: Pharmacologic Peak HR: 100 bpm HR BP Product: Peak BP: 206/78 mmHg Predicted HR: 158 bpm % of predicted HR: 63 Test Duration: 4:31 min Stress Interpretation Target HR was achieved (>85% peak predicted HR). All segments contract normally at baseline and at all stages of stress. Echocardiographically normal stress echo. ECG portion notable for hemodynamically stable, asymptomatic sustained VT with rate up to 190s. Results ECG no significant ST-T wave changes. Patient developed hemodynamically stable, sustained VT lasting up to 1 min w/ HR up to 190. Arrhythmias sustained ventricular tachycardia Symptoms No symptoms during stress test. Stress Protocol: Pharmacologic - Dobutamine +-----+-----+------+ +------+-- ---+--------+--+--------+----+------+ !Stage!Time !Dosage!Other !Dosage!Heart!Blood !CP!Pain !Pain!Pain ! !# ! ! !Medication! !Rate !Pressure! !Location!Type!Action! +-----+-----+------+ +------+-- ---+--------+--+--------+----+------+ !1.0 !03:21!10.00 ! ! !88 !206/78 ! ! ! ! ! +-----+-----+------+ +------+-- ---+--------+--+--------+----+------+ !2.0 !04:25!20.00 ! ! !100 !181/61 ! ! ! ! ! +-----+-----+------+ +------+-- ---+--------+--+--------+----+------+ !3.0 !04:31!30.00 ! ! !96 !160/52 ! ! ! ! ! +-----+-----+------+ +------+-- ---+--------+--+--------+----+------+ Summary This is a negative Echocardiographic Stress Test. Signature Performing Organization Address City/State/Zipcode Ph one Number [facility]ART[facility] * 2D Echo W/Doppler(CW/PW/Color) (10/18/2019 10:28 AM ENLISTED ADVISOR) Ejection Fraction [facility] Valuation AppON [facility] Specimen Narrative Performed At Transthoracic Echocardiography Report (TTE) [facility] O HEARTLAB Demographics [facility] Patient Name GARRET SEWELL ate of Study 10/18/2019 [id number] GenderMale Visit Number [id number] Amanda tafoya [id number] Room Number Number Date of Birth1955 Referring Physician Dilia Aparicio Age64 year(s) Ramp Lead Edgar Briceno, Physician Fellow Keaton Morocho MD Procedure Type of Study TTE procedure:2DECHO W DO PPLER(CW/PW/COLOR) (Routine) Indications:Pre-surgical evaluation of organ transplant. Clinical History DM ESRD HTN HLD Height: 66 inches Weight: 79.83 kg (176 lbs) BSA: 1.89 m^2 BMI: 28.41 kg/m^2 HR: 65 bpm BP: 195/89 mmHg Summary 1. Normal LV size and function. All seg ments contract normally. LV EF 2. Normal RV size and function. 3. Grade 1 diastolic dysfunction (impai red relaxation and low-normal LA pressure). 4. No significant pericardial effusion is visualized. Previous Study No prior studies available for comparis on. Signature Findings Technical Quality: Technically adequate exam. Rhythm/BPRe gular sinus rhythm during the exam. Left Ventricle The left ventricle is chamber size (by vol index) is normal (male - LVED vol - 34-74ml/m2). LV septal thickness is normal (0.6-1.1cm). LV posterior wall thickness is mildly increased (1.2-1.4cm) . Borderline concentric LV hypertrophy. Grade 1 diastolic dysfunction (impaired relaxation and low-normal LA pressure). Estimated LVEF by qualitative assessment is normal (>60%) . Left AtriumLA s ize is normal . Right VentricleThe righ t ventricular chamber size and systolic function are within normal limits. Right Atrium RA siz e is normal. Atrial SeptumNormal interatrial septum by available views. Aortic Valve Normal AoV structure There is mild aortic stenosis. Mitral Valve Mild m itral annular calcification. No significant mitral regurgitation. Tricuspid ValveTV struc ture is normal. A trace of tricuspid regurgitation. Estimated peak systolic PA pressure is 20-25 mmHg . Pulmonic Valve Normal P V structure and function. Aorta Aortic root size (SInus of Valsalva diameter) is normal . PericardiumNo s ignificant pericardial effusion is visualized. IVC/SVC/PA/PV/PleuralThe estimated RA pressure by IVC dynamics 5-10mmHg [...] l/min/m^2 RVOT RVOT VTI (PW): 23.72 cm Procedure Note Interface, External Ris In - 10/19/2019 7:21 AM ENLISTED ADVISOR Transthoracic Echocardiography Report (TTE) Demographics Patient Name AUGUST SEWELL Date of Study 10/18/2019 Gender Male Visit Number [id number] Race Unknown Room Number Number Date of 1955 Referring Physician Dilia Aparicio Age 64 year(s) Ramp Lead Edgar Archibald Interpreting Holley Briceno, Physician MD Fellow Keaton Morocho MD Procedure Type of Study TTE procedure:2DECHO W DOPPLER(CW/PW/COLOR) (Routine) Indications:Pre-surgical evaluation of organ transplant. Clinical History DM ESRD HTN HLD Height: 66 inches Weight: 79.83 kg (176 lbs) BSA: 1.89 m^2 BMI: 28.41 kg/m^2 HR: 65 bpm BP: 195/89 mmHg Summary 1. [...] size and systolic function are within normal limits. Right Atrium RA size is normal. Atrial [...] l/min/m^2 RVOT RVOT VTI (PW): 23.72 cm Performing Organization Address City/State/[facility] one Number [facility] * Treadmill tolerance(Non-Nuclear Treadmill) (10/18/2019 10:00 AM ENLISTED ADVISOR) Specimen Narrative Performed At Protocol Name DOBUT TM-1 GE MUSE Time In Exercise Phase 00:12:15 Max. Systolic BP 206 mmHg Max Diastolic BP 78 mmHg Max Heart Rate 157 BPM Max Predicted Heart Rate 158 BPM Reason For Termination Arrhythmias Reason for Test ESRD Target HR Formula (220 - Age)*100% Arrhythmias Sustained Ventricular Tachy cardia Resting ECG Normal sinus rhythm ST Changes No Significant Changes Overall Impression Abnormal stress ECG Chest Pain none HR Response To Exercise appropriate BP Response To Exercise APPROPRIATE RES PONSE Functional Capacity Indeterminate due t o pharmacologic stress NIFEDIPINE metoprolol Test suspended d/t VT The Ventricular T achycardia was sustained, but self-terminated. Confirmed by MD REDDY RAYMOND ([id number]) on 10/24/2019 4:44:04 PM Procedure Note Interface, External Ris In - 10/24/2019 4:44 PM ENLISTED ADVISOR Protocol Name DOBUT TM-1 Time In Exercise Phase 00:12:15 Max. Systolic BP 206 mmHg Max Diastolic BP 78 mmHg Max Heart Rate 157 BPM Max Predicted Heart Rate 158 BPM Reason For Termination Arrhythmias Reason for Test ESRD Target HR Formula (220 - Age)*100% Arrhythmias Sustained Ventricular Tachycardia Resting ECG Normal sinus rhythm ST Changes No Significant Changes Overall Impression Abnormal stress ECG Chest Pain none HR Response To Exercise appropriate BP Response To Exercise APPROPRIATE RESPONSE Functional Capacity Indeterminate due to pharmacologic stress NIFEDIPINE metoprolol Test suspended d/t VT The Ventricular Tachycardia was sustained, but self- terminated. Confirmed by MD REDDY RAYMOND ([id number]) on 10/24/2019 4:44:04 PM Performing Organization Address [facility] one Number GE MUSE * ECG 12 lead (10/18/2019 9:18 AM ENLISTED ADVISOR) Specimen Narrative Performed At Ventricular Rate 69 BPM GE MUSE Atrial Rate 69 BPM P-R Interval 282 ms QRS Duration 100 ms Q-T Interval 442 ms QTC Calculation(Bazett) 473 ms P Redkey 71 degrees R Redkey -43 degrees T Redkey 60 degrees Sinus rhythm with 1st degree A-V block Left axis deviation Abnormal ECG No previous ECGs available Confirmed by MD Lynne Roberto ([id number]) on 10/19/2019 11:06:49 AM Procedure Note Interface, External Ris In - 10/19/2019 11:06 AM ENLISTED ADVISOR Ventricular Rate 69 BPM Atrial Rate 69 BPM P-R Interval 282 ms QRS Duration 100 ms Q-T Interval 442 ms QTC Calculation(Bazett) 473 ms P Redkey 71 degrees R Redkey -43 degrees T Redkey 60 degrees Sinus rhythm with 1st degree A-V block Left axis deviation Abnormal ECG No previous ECGs available Confirmed by MD Lynne Roberto ([id number]) on 10/19/2019 11:06:49 AM Performing Organization Address [facility] Ph one Number GE MUSE * XR chest 2 views (10/18/2019 8:56 AM ENLISTED ADVISOR) Specimen Narrative Performed At FINAL REPORT GE RIS INDICATION: Pre kidney transplant evalu ation. COMPARISON: None TECHNIQUE: Frontal and lateral views of the chest. FINDINGS: Lungs and pleura: Clear lungs. No effus ion. Heart and mediastinum: Normal heart siz e. Unremarkable mediastinal contours. Osseous structures: No acute abnormalit y. Additional findings: Right IJ dual-lume n central venous catheter terminates over the superior vena cava. IMPRESSION: No acute intrathoracic abnormality. Signed: JR Restrepo Robert MD Report Verified Date/Time: 0 10:01:55 Reading Location: [facility] Radiolo gy Reading Room Procedure Note Interface, External Ris In - 10/18/2019 10:04 AM ENLISTED ADVISOR FINAL REPORT INDICATION: Pre kidney transplant evaluation. COMPARISON: None TECHNIQUE: Frontal and lateral views of the chest. FINDINGS: Lungs and pleura: Clear lungs. No effusion. Heart and mediastinum: Normal heart size. Unremarkable mediastinal contours. Osseous structures: No acute abnormality. Additional findings: Right IJ dual-lumen central venous catheter terminates over the superior vena cava. IMPRESSION: No acute intrathoracic abnormality. Signed: JR Restrepo Robert MD Report Verified Date/Time: 10/18/2019 10:01:55 Reading Location: [facility] Radiology Reading Room Performing Organization Address City/State/Zipcode Ph one Number [id number] * US abdomen complete (10/18/2019 8:07 AM ENLISTED ADVISOR) Specimen Narrative Performed At FINAL REPORT [id number] Abdominal ultrasound dated 10/18/2019 History: Kidney transplant evaluation. COMPARISON: None Findings: Liver is normal in size and echogenicit y.The liver hvmoafjw58 cm in length.No focal lesion is noted in the liver.Spleen is normal in size, 8.8 cm in length, without foca l abnormality. Gallbladder is normal in appearance. No gallstone or biliary dilatation seen. Common bile duct measu res four mm in diameter.Main portal vein measures 1.2 cm in diameter . Pancreas is normal in appearance. Right kidney measures 9.8 x 5.8 x 5.8 c m.Left kidney measures 9.8 x 5.4 x 4.6 cm.Echogenicity of both k idneys is normal. There is a 1.1 x 0.7 x 0.8 cm cyst in the mid region o f the left kidney. No hydronephrosis, solid mass, or calculus seen. No ascites is present in the abdomen. Abdominal aorta is normal in caliber. I VC and hepatic veins are patent. Impression: Single 1.1 cm left renal cyst, otherwis e unremarkable. Signed: Pelon Ellison MD Report Verified Date/Time: 0 09:36:15 Reading Location: [address] Radiolo gy Reading Room Procedure Note Interface, External Ris In - 10/18/2019 9:38 AM ENLISTED ADVISOR FINAL REPORT Abdominal ultrasound dated 10/18/2019 History: Kidney [...] 5.4 x 4.6 cm. Echogenicity of both kidn eys is normal. There is a 1.1 x 0.7 x 0.8 cm cyst in the mid region of the left kidney. No hydronephrosis, solid mass, or calculus seen. No ascites is present in the abdomen. Abdominal aorta is normal in caliber. IVC and hepatic veins are patent. Impression: Single 1.1 cm left renal cyst, otherwise unremarkable. Signed: Pelon Ellison MD Report Verified Date/Time: 10/18/2019 09:36:15 Reading Location: [address] Radiology Reading Room Performing Organization Address City/State/Zipcode Ph one Number GE RIS * Blood typing, automated (10/18/2019 7:13 AM ENLISTED ADVISOR) Only the most recent of 2 results within the time period is included. ABO/RH AUTOMATED (BEAKER) O POSITIVE [facility] Specimen Blood Performing Organization Address [facility] Ph one Number [address] [address] [facility] * PSA (10/18/2019 7:13 AM ENLISTED ADVISOR) PSA 0.3 0.0 - 4.0 ng/mL [facility] Specimen Blood Narrative Performed At Pusher Runner ID - DB [facility] Performing Organization Address [facility] one Number [address] [address] [facility] * Hemoglobin A1c (10/18/2019 7:13 AM ENLISTED ADVISOR) Hemoglobin A1C 7.7 (H) 4.3 - 6.1 % [facility] Specimen Blood Performing Organization Address [facility] one Number [address] [address] [facility] * Lipid panel (10/18/2019 7:13 AM ENLISTED ADVISOR) Triglycerides 120 mg/dL [facility] Cholesterol 105 mg/dL [facility] HDL 32 mg/dL [facility] LDL Calculated 49 mg/dL [facility] Specimen Blood Narrative Performed At Triglyceride Reference Range: [facility] Low Risk <150 [facility] [id number] High Risk 200-499 Very High Risk>=500 Cholesterol Reference Range: Low Risk <200 [id number] High Risk>240 HDL Cholesterol Reference Range: Low Risk >=60 High Risk <40 LDL Cholesterol Reference Range: Optimal<100 Near [id number] [id number] Very High >=190 Pusher Runner ID - KARTHIKEYAN M Performing Organization Address [facility] Ph one Number [place] [phone] [place], [place] [address] [facility] * HLA TYPING CII (09/27/2019 11:50 AM ENLISTED ADVISOR) HLA-DR AG1 10 [facility] HLA TESTING HLA-DR AG2 1 [facility] HLA TESTING HLA-DQA1 AG 1-1 01 [facility] HLA TESTING HLA-DQA1 AG 1-2 01 [facility] HLA TESTING HLA-DQB1 AG 1-1 5 [facility] HLA TESTING HLA-DQB1 AG 1-2 5 [facility] HLA TESTING HLA-DPA1 AG 1-1 02 [facility] HLA TESTING HLA-DPA1 AG 1-2 02 [facility] HLA TESTING HLA-DPB1 AG 1-1 10:01 [facility] HLA TESTING HLA-DPB1 AG 1-2 17:01 [facility] HLA TESTING Specimen Blood Narrative Performed At Disclaimer: [facility] HLA TESTING This test was developed and its perform ance characteristics determined by the [facility] Laboratory. It has not been cleared or approved by the U.S. Food and Drug Administration. The FDA has determined that such clearance or approval is not necessary. This test is used for clinic al purposes. It should not be regarded as investigational or for research. This l aboratory is certified under the Clinical Laboratory Improvement Amendments of 19 88 (CLIA-88) as qualified to perform high complexity clinical laboratory testing. Performing Organization Address City/State/[facility] Ph one Number [facility] HLA TESTING ONE [facility] [address], MS: [id number], [place] [address] CLIA#[id number] CAP#[id number] UNOS#[id number] * HLA TYPING CI (09/27/2019 11:50 AM ENLISTED ADVISOR) HLA-A AG1 2 [facility] HLA TESTING HLA-A AG2 3 [facility] HLA TEST[facility] HLA-B AG1 35 [facility] HLA TESTING HLA-B AG2 35 [facility] HLA TESTING HLA-C AG1 4 [facility] HLA TESTING HLA-C AG2 4 [facility] HLA TESTING HLA-B BW1 6 [facility] HLA TESTING HLA-B BW2 6 [facility] HLA TESTING Specimen Blood Narrative Performed At Disclaimer: [facility] HLA TESTING This test was developed and its perform ance characteristics determined by the [facility] Laboratory. It has not been cleared or approved by the U.S. Food and Drug Administration. The FDA has determined that such clearance or approval is not necessary. This test is used for clinic al purposes. It should not be regarded as investigational or for research. This l aboratory is certified under the Clinical Laboratory Improvement Amendments of 19 88 (CLIA-88) as qualified to perform high complexity clinical laboratory testing. Performing Organization Address City/State/[facility] Ph one Number [facility] HLA TESTING ONE Luis Gregorio, MS: [id number], [place] [address] CLIA#[id number] CAP#[id number] UNOS#[id number] * T Spot TB (09/27/2019 11:50 AM ENLISTED ADVISOR) T-Spot TB Negative [facility] Neg Ctrl Spot Count 0 [facility] Panel A Spot 0 [facility] Panel B Spot 1 [facility] Pos Ctrl Spot Ct 0 [facility] Scan Result [facility] Specimen Blood Narrative Performed At This result has an attachment that is n ot available. Performing Organization Address City/[facility] Ph one Number [facility] [place] [address] LABORATORIES 100 * HIV-1 Antigen with HIV-1/2 Antibody (09/27/2019 11:50 AM ENLISTED ADVISOR) HIV-1 Antigen with HIV Nonreactive Nonreactive [facility] 1&2 Antibody [facility] Specimen Blood Narrative Performed At Pusher Runner [facility] Performing Organization Address City/[facility] Ph one [place] [phone] * Hepatitis C Antibody (09/27/2019 11:50 AM ENLISTED ADVISOR) Hepatitis C Ab Reactive (A) Nonreactive [facility] Specimen Blood Narrative Performed At Pusher Runner [facility] Performing Organization Address [facility] Ph one [place] [phone] [phone] [place] [address] * Hepatitis B core antibody, IgM (09/27/2019 11:50 AM ENLISTED ADVISOR) Hep B C IgM Nonreactive Nonreactive [facility] Specimen Blood Narrative Performed At Pusher Runner ID - [facility] Performing Organization Address City/State/Zipcode Ph one [address] [phone] [address] * Hepatitis B surface antibody (09/27/2019 11:50 AM ENLISTED ADVISOR) Hep B S Ab <8.0 <8.0 mIU/mL [facility] Specimen Blood Narrative Performed At Pusher Runner ID [facility] Performing Organization Address City/[facility] Ph one [address] 0 [phone] [place] [address] * Hepatitis B surface antigen (09/27/2019 11:50 AM ENLISTED ADVISOR) HBsAg Screen Nonreactive Nonreactive [facility] Specimen Blood Narrative Performed At Pusher Runner ID [facility] Performing Organization Address City/[facility] Ph one [address] [phone] [place] [address] * Direct AHG (JOHNNY)/Direct Sergio (09/27/2019 11:50 AM ENLISTED ADVISOR) Direct AHG-IGG NEGATIVEComment: saline [facility] control-negative [facility] Direct AHG-C3B, C3D NEGATVIE [facility] Specimen Blood Performing Organization Address City/[facility] Ph one [address] [address] [facility] * PTH, Intact (09/27/2019 11:50 AM ENLISTED ADVISOR) PTH 462.7 (H) 8.5 - 72.5 pg/mL [facility] Specimen Blood Narrative Performed At Pusher Runner ID [facility] Performing Organization Address City/[facility]/Zipcode Ph one [place] [phone] [place] [address] * MHA - TP (09/27/2019 11:49 AM ENLISTED ADVISOR) TREPONEMA PALLIDUM, Reactive (AA) Nonreactive [facility] SYPHILIS IGG [facility] Specimen Blood Narrative Performed At Test performed by IVAN method. [facility] Performing Organization Address City/[facility] Ph one Number [facility] [address] [place], [place] [address] [facility] * FLOW PRA CLASS II WITH REFLEX TO ANTIBODY SPECIFICITY (09/27/2019 11:49 AM ENLISTED ADVISOR) Flow Class II Percent 0 [facility] HLA TESTI NG Positive Specimen Blood Narrative Performed At Disclaimer: [facility] HLA TESTING This test was developed and its perform ance characteristics determined by the [facility] Laboratory. It has not been cleared or approved by the U.S. Food and Drug Administration. The FDA has determined that such clearance or approval is not necessary. This test is used for clinic al purposes. It should not be regarded as investigational or for research. This l aboratory is certified under the Clinical Laboratory Improvement Amendments of 19 88 (CLIA-88) as qualified to perform high complexity clinical laboratory testing. Performing Organization Address [facility] one Number [facility] HLA TESTING ONE Luis Gregorio, MS: [id number], [place] [address] CLIA#[id number] CAP#[id number] UNOS#[id number] * FLOW PRA CLASS I WITH REFLEX TO ANTIBODY SPECIFICITY (09/27/2019 11:49 AM ENLISTED ADVISOR) Flow Class I Percent 10 [facility] HLA TESTIN G Positive Specimen Blood Narrative Performed At Disclaimer: [facility] HLA TESTING This test was developed and its perform ance characteristics determined by the [facility]. It has not been cleared or approved by the U.S. Food and Drug Administration. The FDA has determined that such clearance or approval is not necessary. This test is used for clinic al purposes. It should not be regarded as investigational or for research. This l aboratory is certified under the Clinical Laboratory Improvement Amendments of 19 88 (CLIA-88) as qualified to perform high complexity clinical laboratory testing. Performing Organization Address City/[facility] one Number [facility] HLA TESTING ONE Luis Gregorio MS: [id number], [place] [address] CLIA#[id number] CAP#[id number] UNOS#[id number] * AB SPECIFICITY CLASS I (09/27/2019 11:49 AM ENLISTED ADVISOR) AB Specificity Class I NO CLASS I ANTIBODY DETECTED [facility] HLA TESTING WITH MFIs > 4000 Specimen Blood Narrative Performed At Disclaimer: [facility] HLA TESTING This test was developed and its perform ance characteristics determined by the [facility]. It has not been cleared or approved by the U.S. Food and Drug Administration. The FDA has determined that such clearance or approval is not necessary. This test is used for clinic al purposes. It should not be regarded as investigational or for research. This l aboratory is certified under the Clinical Laboratory Improvement Amendments of 19 88 (CLIA-88) as qualified to perform high complexity clinical laboratory testing. Performing Organization Address City/[facility] Ph one Number [facility] HLA TESTING ONE Luisana Gregorio, MS: [id number], [place] [address] CLIA#[id number] CAP#[id number] UNOS#[id number] * RPR Titer (09/27/2019 11:49 AM ENLISTED ADVISOR) RPR Titer 1:4 [facility] Specimen Blood Performing Organization Address City/[facility] Ph one Number [address] [address] MEDICAL CENTER * PT/aPTT (09/27/2019 11:49 AM ENLISTED ADVISOR) Protime 13.7 11.9 - 14.[address] [facility] [place] INR 1.1 <=5.9 [facility] PTT 31.4 22.5 - 36.[address] [facility] [place] Specimen Blood Narrative Performed At Effective 01/18/2019: PT Reference Range Change [facility] New: 11.9-14.2Previous: 11.7-14.7 [facility] MEDICAL CE NTER RECOMMENDED COUMADIN/WARFARIN INR THERA PY RANGES STANDARD DOSE: 2.0-3.0Includes: PRO PHYLAXIS for venous thrombosis, systemic embolization; TREATMENT for venous thro mbosis and/or pulmonary embolus. HIGH RISK: Target INR is 2.5-3.5 for pa tients wiht mechanical heart valves. Performing Organization Address City/State/Zipcode Ph one Number [facility] [address], [place] [address] [facility] * CBC with platelet count + automated diff (09/27/2019 11:49 AM ENLISTED ADVISOR) WBC 10.2 3.5 - 10.5 K/L [facility] RBC 4.10 (L) 4.63 - 6.08 M/L [facility] Hemoglobin 11.5 (L) 13.7 - 17.5 GM/DL [facility] Hematocrit 35.6 (L) 40.1 - 51.0 % [facility] MCV 86.8 79.0 - 92.2 fL [facility] MCH 28.0 25.7 - 32.2 pg [facility] MCHC 32.3 32.3 - 36.5 GM/DL [facility] RDW 13.5 11.6 - 14.4 % [facility] Platelets 265 150 - 450 K/CU MM [facility] MPV 10.8 9.4 - 12.4 fL [facility] nRBC 0 0 - 0 /100 WBC [facility] % Neutros 60 % [facility] % Lymphs 28 % [facility] % Monos 9 % [facility] % Eos 3 % [facility] % Baso 1 % [facility] # Neutros 6.10 (H) 1.78 - 5.38 K/L [facility] # Lymphs 2.82 1.32 - 3.57 K/L [facility] # Monos 0.92 (H) 0.30 - 0.82 K/L [facility] # Eos 0.31 0.04 - 0.54 K/L [facility] # Baso 0.05 0.01 - 0.08 K/L [facility] Immature 0 0 - 1 % [facility] Granulocytes-Relative [facility] Specimen Blood Performing Organization Address [facility] one Number [address] * Cytomegalovirus antibody, IgM (09/27/2019 11:49 AM ENLISTED ADVISOR) CMV IGM Negative Negative, Equivocal [facility] [place] Specimen Blood Narrative Performed At CMV IgM Result Interpretation: [facility] </= 0.8 Al Negative [facility] 0.9-1.0 Al Equivocal >/= 1.1 Al Positive Performing Organization Address [facility] one Number [address] * EBV-VCA antibody, IgM (09/27/2019 11:49 AM ENLISTED ADVISOR) GUME MORALES VIRAL CAPSID Negative Negative, Equivocal [facility] ANTIGEN IGM [facility] Specimen Blood Narrative Performed At Gume Morales Viral Capsid Antigen IgM Result Interpre tation: [facility] </= 0.8 Al Negative [facility] 0.9-1.0 Al Equivocal >/= 1.1 Al Positive Performing Organization Address [facility] one Number [address] * EBV-VCA antibody, IgG (09/27/2019 11:49 AM ENLISTED ADVISOR) GUME MORALES VIRAL CAPSID Positive (A) Negative, Equivocal [facility] ANTIGEN IGG [facility] Specimen Blood Narrative Performed At Gume Morales Viral Capsid Antigen IgG Result Interpre tation[facility] </= 0.8 Al Negative [facility] 0.9-1.0 Al Equivocal >/= 1.1 Al Positive Performing Organization Address [facility] one Number [address] [phone] [address] [address] * RPR (09/27/2019 11:49 AM ENLISTED ADVISOR) RPR Reactive (A) Nonreactive [facility] Specimen Blood Performing Organization Address [facility] one Number [address] * Cytomegalovirus antibody, IgG (09/27/2019 11:49 AM ENLISTED ADVISOR) CYTOMEGALOVIRUS, IGG Positive (A) Negative, Equivocal [facility] Specimen Blood Narrative Performed At CMV IgG Result Interpretation: [facility] </= 0.8 Al Negative [facility] 0.9-1.0 Al Equivocal >/=1.1 AlPositive Performing Organization Address [facility] one Number [address] * Varicella Zoster Antibody, IgG (09/27/2019 11:49 AM ENLISTED ADVISOR) Varicella IgG 7.2 [facility] Specimen Blood Narrative Performed At VARICELLA ZOSTER RESULT INTERPRETATIONS: [facility] <=0.8 AlNo nreactive:Presumed non-immune to VZV [facility] 0.9-1.0 AlEqui vocal >=1.1 AlRe active:Presumed immune to VZV Performing Organization Address [facility] one Number [place] [phone] [place] [address] * Uric Acid (09/27/2019 11:49 AM ENLISTED ADVISOR) Uric Acid 4.6 2.6 - 7.2 mg/dL [facility] Specimen Blood Narrative Performed At P[facility]her Runner ID - [facility] Performing Organization Address City/[facility] Ph one [place] [phone] [address] * Phosphorus (09/27/2019 11:49 AM ENLISTED ADVISOR) Phosphorus 4.7 2.3 - 4.7 mg/dL [facility] Specimen Blood Narrative Performed At Pusher Runner ID [facility] Performing Organization Address City/[facility] Ph one [place] [phone] [place] [address] * Lactate Dehydrogenase (LDH) (09/27/2019 11:49 AM ENLISTED ADVISOR) LDH 231 (H) 125 - 220 U/L [facility] Specimen Blood Narrative Performed At [facility] [employer] ID - [facility] Performing Organization Address City/[facility] Ph one [place] [phone] [place] [address] * Gamma Glutamyl Transferase (GGT) (09/27/2019 11:49 AM ENLISTED ADVISOR) GGT 84 (H) 9 - 64 U/L [facility] Specimen Blood Narrative Performed At [facility]her Runner ID - [facility] Performing Organization Address City/[facility] Cent[facility] Ph one [place] [phone] [address] * Comprehensive metabolic panel (09/27/2019 11:49 AM ENLISTED ADVISOR) Protein, Total 7.5 6.0 - 8.3 gm/dL [facility] Albumin 4.0 3.5 - 5.0 g/dL [facility] Alkaline Phosphatase 161 (H) 40 - 150 U/L [facility] Total Bilirubin 0.5 0.2 - 1.2 mg/dL [facility] Sodium 133 (L) 136 - 145 meq/L [facility] Potassium 3.2 (L) 3.5 - 5.1 meq/L [facility] Chloride 94 (L) 98 - 107 meq/L [facility] CO2 27 22 - 29 meq/L [facility] BUN 34 (H) 7 - 21 mg/dL [facility] Creatinine 5.10 (H) 0.57 - 1.25 mg/dL [facility] Glucose 243 (H) 70 - 105 mg/dL [facility] Calcium 8.0 (L) 8.4 - 10.2 mg/dL [facility] AST 18 5 - 34 U/L [facility] ALT 20 6 - 55 U/L [facility] EGFR 12Comment: ESTIMATED GFR IS mL/min/1.73 sq m [facility] NOT ACCURATE CREATININE [facility] CLEARANCE IN PREDICTING GLOMERULAR FILTRATION RATE. ESTIMATED GFR IS NOT APPLICABLE FOR DIALYSIS PATIENTS. Specimen Blood Narrative Performed At Pusher Runner ID - ROSIANG [facility] Performing Organization Address City/State/Zipcode Ph one Number [facility] [address], [place] [address] [facility] after 03/19/2019 Insurance Payer Benefit Subscriber ID Type Phone Address Plan / Group [employer] [facility] xxxxxxxxx [facility] HEALTHSPMS Contracted NG ALL [id number]
--- OUTSIDE RECORDS SUMMARY | 2020-03-22 19:11 | XMS REPORT | Clinical Summary ---
Author Author [employer] Address Unknown Phone Unavailable Care Team Providers Care Sql Server Architect Name Role Phone Herman Preston MD PCP Allergies No Known Allergies Medications End Date Status Medication Sig Dispensed Refills Start Date Active sevelamer (RENAGEL) 800 Take 800 mg 0 MG tablet by mouth 3 (three) times a day with meals. Active atorvastatin (LIPITOR) 80 Take 80 mg by 0 MG tablet mouth daily. Active lisinopril (PRINIVIL) 5 Take 5 mg by 0 mg tablet mouth daily. Active NIFEdipine XL (PROCARDIA Take 60 mg by 0 XL) 60 MG 24 hr tablet mouth daily. Active metoprolol succinate XL Take 50 mg by 0 (TOPROL-XL) 50 mg 24 hr mouth daily. tablet Active chlorthalidone (HYGROTEN) Take 25 mg by 0 25 MG tablet mouth daily. Active insulin degludec (TRESIBA Inject 14 0 FLEXTOUCH U-100) 100 Units under unit/mL (3 mL) insulin the skin pen daily. Active Problems Not on file Encounters Care Team Description Date Type Specialty Everardo Guzmán DO Abdominal cramps (Primary Dx); ESRD (end stage renal disease) ([facility]) 07/03/2019 Emergency Emergency Medicine Harman Rasmussen MD 2019 Documentation Cardiovascular after 03/19/2019 Immunizations Name Administration Dates Next Due Tdap 02/23/2019 Social History Date Tobacco Use Types Packs/Day Years Used Never Smoker Smokeless Tobacco: Never Used Drinks/Week oz/Week Comments Alcohol Use Never Alcohol Habits Answer Date Recorded How often do you have a drink containing alcohol? Never 02/23/2019 How many drinks containing alcohol do you [...] travel history available. Last Filed Vital Signs Reading Time Taken Comments Vital Sign 189/78 07/03/2019 9:05 PM RIG HAND Blood Pressure 71 07/03/2019 9:05 PM RIG HAND Pulse 37 C (98.6 F) 07/03/2019 9:05 PM RIG HAND Temperature 19 07/03/2019 9:05 PM RIG HAND Respiratory Rate 99% 07/03/2019 9:05 PM RIG HAND Oxygen Saturation - - Inhaled Oxygen Concentration 81.6 kg (180 lb) 07/03/2019 3:20 PM RIG HAND Weight 167.6 cm (5' 6") 07/03/2019 3:20 PM RIG HAND Height 29.05 07/03/2019 3:20 PM RIG HAND Body Mass Index Plan of Treatment Health Maintenance Due Date Last Done Comments DIABETIC RETINAL EYE EXAM 1957 DIABETIC FOOT EXAM 1967 URINE MICROALBUMIN 1967 COLONOSCOPY SCREENING 2007 SHINGLES VACCINES (#2) 02/17/2017 12/18/2016 INFLUENZA VACCINE 03/23/2020 Procedures Comments Procedure Name Priority Date/Time Associated Diag nosis URINALYSIS SCREEN AND STAT 07/03/2019 MICROSCOPY, WITH REFLEX 3:21 PM RIG HAND TO CULTURE ESTIMATED GFR STAT 07/03/2019 3:19 PM RIG HAND LIPASE LEVEL STAT 07/03/2019 3:19 PM RIG HAND COMPREHENSIVE METABOLIC STAT 07/03/2019 PANEL 3:19 PM RIG HAND HC COMPLETE BLD COUNT STAT 07/03/2019 W/AUTO DIFF 3:19 PM RIG HAND after 03/19/2019 Results * Urinalysis screen and microscopy, with reflex to culture (07/03/2019 3:21 PM RIG HAND) Specimen site Clean catch [facility] Color, UA Yellow [facility] Appearance, UA Slightly-Cloudy [facility] Specific 1.015 1.001 - 1.035 [place] gravity, UA [facility] pH, UA 5.0 5.0 - 8.5 [facility] Protein, UA 3+ (A) Negative [facility] Glucose, UA 1+ (A) Negative [facility] Ketones, UA Negative Negative [facility] Bilirubin, UA Negative Negative [facility] Blood, UA Negative Negative [facility] Nitrite, UA Negative Negative [facility] Urobilinogen, Negative <2.0 [facility] Leukocyte Negative Negative [place] esterase, UA [facility] WBC, UA None seen 0 - 1 /HPF [facility] RBC, UA 3 0 - 5 /HPF [facility] Bacteria, UA Trace None seen [facility] Yeast, UA None seen [facility] Yeast with None seen [facility] Specimen Urine Performing Organization Address City/[facility] Ph one Number [facility] [address] [place] [address] PATHOLOGY AND GENOMIC MEDICINE [address] * Estimated GFR (07/03/2019 3:19 PM RIG HAND) [facility] Estimated GFR 11 (A) mL/min/1.73 m2 [place] Comment: [facility] G1 >=90 Normal or high G2 60-89 Mildly decreased G3a 45-59 Mildly to moderately decreased G3b 30-44 Moderately to severely decreased G4 15-29 Severely decreased G5 <15 Kidney failure The eGFR was calculated using the Chronic Kidney Disease Epidemiology Collaboration (CKD-EPI) equation. Interpretation is based on recommendations of the National Kidney Foundation-Kidney Disease Outcomes Quality Initiative (NKF-KDOQI) published in 2014. Specimen Plasma specimen Performing Organization Address City/State/[facility] Mex[facility] Ph one Number [facility] [address] [place] [address] PATHOLOGY AND GENOMIC MEDICINE [address] * CBC with platelet and differential (07/03/2019 3:19 PM RIG HAND) [facility] WBC 7.6 4.2 - 11.0 k/uL [facility] RBC 2.97 (L) 4.04 - 5.86 m/uL [facility] HGB 8.1 (L) 13.0 - 17.3 g/dL [facility] HCT 26.5 (L) 34.0 - 45.0 % [facility] MCV 89.2 80.0 - 98.0 fL [facility] MCH 27.3 27.0 - 34.0 pg [facility] MCHC 30.6 (L) 31.5 - 36.5 g/dL [facility] RDW - SD 46.1 37.0 - 51.0 fL [facility] MPV 11.1 (H) 7.4 - 10.4 fL [facility] Platelet count 240 150 - 400 k/uL [facility] Nucleated RBC 0.00 /100 WBC [facility] Neutrophils 62.5 36.0 - 66.0 % [facility] Lymphocytes 26.3 24.0 - 44.0 % [facility] Monocytes 8.5 (H) 0.0 - 6.0 % [facility] Eosinophils 2.0 0.0 - 6.0 % [facility] Basophils 0.4 0.0 - 1.2 % [facility] Immature 0.3 0.0 - 1.0 % [place] granulocytes [facility] Specimen Blood Performing Organization Address City/State/[facility] Mex[facility]ocode Ph one Number [facility] [address] [place] [phone] PATHOLOGY AND GENOMIC MEDICINE [address] * Lipase level (07/03/2019 3:19 PM RIG HAND) Lipase 33 13 - 60 U/L [facility] Specimen Plasma specimen Performing Organization Address City/State/[facility] Mex[facility]ocode Ph one Number [facility] [address] [place] [address] PATHOLOGY AND GENOMIC MEDICINE [facility] [address] [place] [address] HOSPITAL * Comprehensive metabolic panel (07/03/2019 3:19 PM RIG HAND) Sodium 138 135 - 150 mEq/L [facility] Potassium 5.1 (H) 3.5 - 5.0 mEq/L [facility] Chloride 105 98 - 112 mEq/L [facility] CO2 15 (L) 24 - 31 mmol/L [facility] Anion gap 18@ANIO (H) 7 - 15 mEq/L [facility] BUN 93 (H) 7 - 18 mg/dL [facility] Creatinine 5.20 (H) 0.70 - 1.20 mg/dL [facility] Glucose 164 (H) 65 - 100 mg/dL [facility] Calcium 7.0 (L) 8.8 - 10.2 mg/dL [facility] Protein 6.5 6.3 - 8.3 g/dL [facility] Albumin 3.1 (L) 3.5 - 5.0 g/dL [facility] A/G ratio 0.9 0.7 - 3.8 [facility] Alkaline 103 0 - 129 U/L [place] phosphatase [facility] AST 17 10 - 50 U/L [facility] ALT 9 5 - 50 U/L [facility] Total bilirubin <0.3 0.2 - 1.2 mg/dL [facility] Specimen Plasma specimen Performing Organization Address City/State/Zipcode Ph one Number [facility] [address] [place] [phone] PATHOLOGY AND GENOMIC MEDICINE [facility] Ángela [address] after 03/19/2019 Insurance Type Payer Benefit Subscriber ID Effective Phone Address Plan / Dates Group HMO [employer] CIGNA xxxxxxxxxxx [id number] [facility] AD[facility] Advance Directives For more information, please contact: [phone] Patient Gold Stamper Explanation Type Date Recorded Advance Directives, 02/23/2019 11:05 PM Living Will and Medical Power of Printing Press Operator Advance Directives, 07/03/2019 8:28 PM Living Will and Medical Power of Printing Press Operator
--- OUTSIDE RECORDS SUMMARY | 2020-03-22 19:14 | XMS REPORT | Clinical Summary ---
Author Author [employer] [facility] [employer] Address Unknown Phone Unavailable Care Team Providers Care Employment Advisor Name Role Phone Herman Preston MD PCP [...] (Primary Dx); ESRD (end stage renal disease) ([facility]) 07/03/2019 Emergency Emergency Medicine Harman Rasmussen MD [...] Comments Vital Sign 189/78 07/03/2019 9:05 PM [employer]2 SYSTEMS PROGRAMMER Blood Pressure 71 07/03/2019 9:05 PM [employer]2 SYSTEMS PROGRAMMER Pulse 37 C (98.6 F) 07/03/2019 9:05 PM [employer]2 SYSTEMS PROGRAMMER Temperature 19 07/03/2019 9:05 PM [employer]2 SYSTEMS PROGRAMMER Respiratory Rate 99% 07/03/2019 9:05 PM [employer]2 SYSTEMS PROGRAMMER Oxygen Saturation - - Inhaled Oxygen Concentration 81.6 kg (180 lb) 07/03/2019 3:20 PM [employer]2 SYSTEMS PROGRAMMER Weight 167.6 cm (5' 6") 07/03/2019 3:20 PM [employer] SYSTEMS PROGRAMMER Height 29.05 07/03/2019 3:20 PM [employer]2 SYSTEMS PROGRAMMER Body Mass Index Plan of Treatment Health Maintenance Due Date Last Done Comments DIABETIC RETINAL EYE EXAM 1957 DIABETIC FOOT EXAM 1967 URINE MICROALBUMIN 1967 COLONOSCOPY SCREENING 2007 SHINGLES VACCINES (#2) 02/17/2017 12/18/2016 INFLUENZA VACCINE 03/23/2020 Procedures Comments Procedure Name Priority Date/Time Associated Diag nosis URINALYSIS SCREEN AND STAT 07/03/2019 MICROSCOPY, WITH REFLEX 3:21 PM [employer] SYSTEMS PROGRAMMER TO CULTURE ESTIMATED GFR STAT 07/03/2019 3:19 PM [employer]2 SYSTEMS PROGRAMMER LIPASE LEVEL STAT 07/03/2019 3:19 PM [employer]2 SYSTEMS PROGRAMMER COMPREHENSIVE METABOLIC STAT 07/03/2019 PANEL 3:19 PM [employer]2 SYSTEMS PROGRAMMER HC COMPLETE BLD COUNT STAT 07/03/2019 W/AUTO DIFF 3:19 PM [employer]2 SYSTEMS PROGRAMMER after 03/19/2019 Results * Urinalysis screen and microscopy, with reflex to culture (07/03/2019 3:21 PM DB2 SYSTEMS PROGRAMMER) Specimen site Clean catch [facility] Color, UA Yellow [facility] Appearance, UA Slightly-Cloudy [facility] Specific 1.015 1.001 - 1.035 [place] gravity, UA [facility] pH, UA 5.0 5.0 - 8.5 [facility] Protein, UA 3+ (A) Negative [facility] Glucose, UA 1+ (A) Negative [facility] Ketones, UA Negative Negative [facility] Bilirubin, UA Negative Negative [facility] Blood, UA Negative Negative [facility] Nitrite, UA Negative Negative [facility] Urobilinogen, Negative <2.0 [facility] Leukocyte Negative Negative [place] esterase, UA [facility] WBC, UA None seen 0 - 1 /HPF [facility] RBC, UA 3 0 - 5 /HPF [facility] Bacteria, UA Trace None seen [facility] Yeast, UA None seen [facility] Yeast with None seen [place] [facility] Specimen Urine Performing Organization Address City/[facility] Ph one Number [facility] DEPARTMENT OF [address] [place] [address] PATHOLOGY AND GENOMIC MEDICINE [address] * Estimated GFR (07/03/2019 3:19 PM DB2 SYSTEMS PROGRAMMER) [facility] Estimated GFR 11 (A) mL/min/1.73 m2 [place] Comment: [facility] G1 >=90 Normal or [...] 2014. Specimen Plasma specimen Performing Organization Address City/State/[facility] Ph one Number [facility] DEPARTMENT OF [address] [place] [address] PATHOLOGY AND GENOMIC MEDICINE [address] * CBC with platelet and differential (07/03/2019 3:19 PM DB2 SYSTEMS PROGRAMMER) [facility] WBC 7.6 4.2 - 11.0 k/uL [facility] RBC 2.97 (L) 4.04 - 5.86 m/uL [facility] HGB 8.1 (L) 13.0 - 17.3 g/dL [facility] HCT 26.5 (L) 34.0 - 45.0 % [facility] MCV 89.2 80.0 - 98.0 fL [facility] MCH 27.3 27.0 - 34.0 pg [facility] MCHC 30.6 (L) 31.5 - 36.5 g/dL [facility] RDW - SD 46.1 37.0 - 51.0 fL [facility] MPV 11.1 (H) 7.4 - 10.4 fL [facility] Platelet count 240 150 - 400 k/uL [facility] Nucleated RBC 0.00 /100 WBC [facility] Neutrophils 62.5 36.0 - 66.0 % [facility] Lymphocytes 26.3 24.0 - 44.0 % [facility] Monocytes 8.5 (H) 0.0 - 6.0 % [facility] Eosinophils 2.0 0.0 - 6.0 % [facility] Basophils 0.4 0.0 - 1.2 % [facility] Immature 0.3 0.0 - 1.0 % [place] granulocytes [facility] Specimen Blood Performing Organization Address City/State/[facility] Ph one Number [facility] DEPARTMENT OF [address] [place] [phone] PATHOLOGY AND GENOMIC MEDICINE [address] * Lipase level (07/03/2019 3:19 PM DB2 SYSTEMS PROGRAMMER) Lipase 33 13 - 60 U/L [facility] Specimen Plasma specimen Performing Organization Address City/State/[facility] Ph one Number [facility] DEPARTMENT OF [address] [place] [address] PATHOLOGY AND GENOMIC MEDICINE [facility] [address] [place] [address] HOSPITAL * Comprehensive metabolic panel (07/03/2019 3:19 PM DB2 SYSTEMS PROGRAMMER) Sodium 138 135 - 150 mEq/L [facility] Potassium 5.1 (H) 3.5 - 5.0 mEq/L [facility] Chloride 105 98 - 112 mEq/L [facility] CO2 15 (L) 24 - 31 mmol/L [facility] Anion gap 18@ANIO (H) 7 - 15 mEq/L [facility] BUN 93 (H) 7 - 18 mg/dL [facility] Creatinine 5.20 (H) 0.70 - 1.20 mg/dL [facility] Glucose 164 (H) 65 - 100 mg/dL [facility] Calcium 7.0 (L) 8.8 - 10.2 mg/dL [facility] Protein 6.5 6.3 - 8.3 g/dL [facility] Albumin 3.1 (L) 3.5 - 5.0 g/dL [facility] A/G ratio 0.9 0.7 - 3.8 [facility] Alkaline 103 0 - 129 U/L [place] phosphatase [facility] AST 17 10 - 50 U/L [facility] ALT 9 5 - 50 U/L [facility] Total bilirubin <0.3 0.2 - 1.2 mg/dL [facility] Specimen Plasma specimen Performing Organization Address City/State/Zipcode Ph one Number [facility] DEPARTMENT OF [address] [place] [phone] PATHOLOGY AND GENOMIC MEDICINE [facility] Á[address] after 03/19/2019 Insurance Type Payer Benefit Subscriber ID Effective Phone Address Plan / Dates Group HMO [employer] C[employer] xxxxxxxxxxx [id number] [facility] Advance Directives For more information, please contact: [phone] Patient [employer] Of [employer] Explanation Type Date Recorded Advance Directives, 02/23/2019 11:05 PM Living Will and Medical Power of Director [employer] Advance Directives, 07/03/2019 8:28 PM Living Will and Medical Power of Director [employer]
--- OUTSIDE RECORDS SUMMARY | 2020-03-22 19:14 | XMS REPORT | Clinical Summary ---
Author [facility] Address Unknown Phone Unavailable Care Team Providers Care Roll On Man Name Role Phone Herman Preston MD PCP [...] Pre-transplant evaluation for chronic kidney disease 10/18/2019 [facility] Cardiology Encounter Diana Dobbs MD CKD (chronic [...] Pre-transplant evaluation for chronic kidney disease 10/18/2019 [facility] Radiology Encounter Diana Dobbs MD CKD (chronic [...] kidney disease on chronic dialysis, unspecified whether manager 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 insulin use (HCC); Diabetic retinopathy of both [...] Taken Vital Sign Reading 10/18/2019 11:23 AM [facility]ANO REGULATOR Blood Pressure 173/70 10/18/2019 11:23 AM [facility]ANO REGULATOR Pulse 90 09/27/2019 1:03 PM [facility]ANO REGULATOR Temperature 36.6 C (97.9 F) 09/27/2019 1:03 PM [facility]ANO REGULATOR Respiratory Rate 18 - Oxygen Saturation - - Inhaled Oxygen - Concentration 10/18/2019 9:00 AM PIANO REGULATOR Weight 79.8 kg (176 lb) 10/18/2019 9:00 AM PIANO REGULATOR Height 167.6 cm (5' 6") 10/18/2019 9:00 AM PIANO REGULATOR Body Mass Index 28.41 Plan of Treatment [...] VASCULAR 10/19/2019 REPORT - SCAN 9:22 PM PIANO REGULATOR ECHOCARDIOGRAM REPORT - 10/19/2019 SCAN 9:20 PM PIANO REGULATOR TRANSFUSION SERVICE 10/19/2019 REPORT - SCAN 6:05 PM PIANO REGULATOR STRESS ECHO Routine 10/18/2019 CKD (chronic ki dney 11:08 AM PIANO REGULATOR disease), stage IV (HCC) Hypertensive renal disease Diabetes mellitus due to underlying condition with chronic kidney disease on chronic dialysis, without long-term current use of insulin (HCC) Pre-transplant evaluation for chronic kidney disease 2D ECHO W/ DOPPLER Routine 10/18/2019 CKD (chroni c kidney (CW/PW/COLOR) 10:28 AM [facility]ANO REGULATOR disease), stage IV (HCC) Hypertensive renal disease Diabetes mellitus due to underlying condition with chronic kidney disease on chronic dialysis, without long-term current use of insulin (HCC) Pre-transplant evaluation for chronic kidney disease TREADMILL Routine 10/18/2019 TOLERANCE(NON-NUCLEAR 10:00 AM PIANO REGULATOR TREADMILL) ECG 12-LEAD Routine 10/18/2019 CKD (chronic ki dney 9:18 AM PIANO REGULATOR disease), stage IV (HCC) Hypertensive renal disease Diabetes mellitus due to underlying condition with chronic kidney disease on chronic dialysis, without long-term current use of insulin (HCC) Pre-transplant evaluation for chronic kidney disease XR CHEST 2 VIEWS Routine 10/18/2019 CKD (chronic kidney 8:56 AM PIANO REGULATOR disease), stage IV (HCC) Hypertensive renal disease Diabetes mellitus due to underlying condition with chronic kidney disease on chronic dialysis, without long-term current use of insulin (HCC) Pre-transplant evaluation for chronic kidney disease US ABDOMEN COMPLETE Routine 10/18/2019 CKD (chron ic kidney 8:07 AM PIANO REGULATOR disease), stage IV (HCC) Hypertensive renal disease Diabetes mellitus due to underlying condition with chronic kidney disease on chronic dialysis, without long-term current use of insulin (HCC) Pre-transplant evaluation for chronic kidney disease BLOOD TYPING, AUTOMATED Routine 10/18/2019 CKD (c hronic kidney 7:13 AM PIANO REGULATOR disease), stage IV (HCC) Hypertensive renal disease Diabetes mellitus due to underlying condition with chronic kidney disease on chronic dialysis, without long-term current use of insulin (HCC) Pre-transplant evaluation for chronic kidney disease HEMOGLOBIN A1C Routine 10/18/2019 CKD (chronic ki dney 7:13 AM [facility]ANO REGULATOR disease), stage IV (HCC) Hypertensive renal disease Diabetes mellitus due to underlying condition with chronic kidney disease on chronic dialysis, without long-term current use of insulin (HCC) Pre-transplant evaluation for chronic kidney disease LIPID PANEL Routine 10/18/2019 CKD (chronic ki dney 7:13 AM PIANO REGULATOR disease), stage IV (HCC) Hypertensive renal disease Diabetes mellitus due to underlying condition with chronic kidney disease on chronic dialysis, without long-term current use of insulin (HCC) Pre-transplant evaluation for chronic kidney disease PSA Routine 10/18/2019 CKD (chronic ki dney 7:13 AM PIANO REGULATOR disease), stage IV (HCC) Hypertensive renal disease Diabetes mellitus due to underlying condition with chronic kidney disease on chronic dialysis, without long-term current use of insulin (HCC) Pre-transplant evaluation for chronic kidney disease TRANSFUSION SERVICE 09/28/2019 REPORT - SCAN 6:07 PM PIANO REGULATOR BLOOD TYPING, AUTOMATED Routine 09/27/2019 CKD (c hronic kidney 11:50 AM PIANO REGULATOR disease), stage IV (HCC) Hypertensive renal disease Diabetes mellitus due to underlying condition with chronic kidney disease on chronic dialysis, without long-term current use of insulin (HCC) Pre-transplant evaluation for chronic kidney disease DIRECT AHG (JOHNNY)/DIRECT Routine 09/27/2019 CKD (c hronic kidney SERGIO 11:50 AM PIANO REGULATOR disease), stage IV (HCC) Hypertensive renal disease Diabetes mellitus due to underlying condition with chronic kidney disease on chronic dialysis, without long-term current use of insulin (HCC) Pre-transplant evaluation for chronic kidney disease HLA TYPING CII Routine 09/27/2019 CKD (chronic ki dney 11:50 AM PIANO REGULATOR disease), stage IV (HCC) Hypertensive renal disease Diabetes mellitus due to underlying condition with chronic kidney disease on chronic dialysis, without long-term current use of insulin (HCC) Pre-transplant evaluation for chronic kidney disease HLA TYPING CI Routine 09/27/2019 CKD (chronic ki dney 11:50 AM PIANO REGULATOR disease), stage IV (HCC) Hypertensive renal disease Diabetes mellitus due to underlying condition with chronic kidney disease on chronic dialysis, without long-term current use of insulin (HCC) Pre-transplant evaluation for chronic kidney disease T SPOT TB Routine 09/27/2019 CKD (chronic ki dney 11:50 AM PIANO REGULATOR disease), stage IV (HCC) Hypertensive renal disease Diabetes mellitus due to underlying condition with chronic kidney disease on chronic dialysis, without long-term current use of insulin (HCC) Pre-transplant evaluation for chronic kidney disease PTH, INTACT Routine 09/27/2019 CKD (chronic ki dney 11:50 AM PIANO REGULATOR disease), stage IV (HCC) Hypertensive renal disease Diabetes mellitus due to underlying condition with chronic kidney disease on chronic dialysis, without long-term current use of insulin (HCC) Pre-transplant evaluation for chronic kidney disease HIV-1 ANTIGEN WITH Routine 09/27/2019 CKD (chroni c kidney HIV-1/2 ANTIBODY 11:50 AM PIANO REGULATOR disease), stage IV (HCC) Hypertensive renal disease Diabetes mellitus due to underlying condition with chronic kidney disease on chronic dialysis, without long-term current use of insulin (HCC) Pre-transplant evaluation for chronic kidney disease HEPATITIS C ANTIBODY Routine 09/27/2019 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 11:50 AM PIANO REGULATOR disease), stage IV (HCC) Hypertensive renal disease Diabetes mellitus due to underlying condition with chronic kidney disease on chronic dialysis, without long-term current use of insulin (HCC) Pre-transplant evaluation for chronic kidney disease HEPATITIS B CORE Routine 09/27/2019 CKD (chronic kidney ANTIBODY, IGM 11:50 AM PIANO REGULATOR disease), stage IV (HCC) Hypertensive renal disease Diabetes mellitus due to underlying condition with chronic kidney disease on chronic dialysis, without long-term current use of insulin (HCC) Pre-transplant evaluation for chronic kidney disease HEPATITIS B SURFACE Routine 09/27/2019 CKD (chron ic kidney ANTIGEN 11:50 AM PIANO REGULATOR disease), stage IV (HCC) Hypertensive renal disease Diabetes mellitus due to underlying condition with chronic kidney disease on chronic dialysis, without long-term current use of insulin (HCC) Pre-transplant evaluation for chronic kidney disease HEPATITIS B SURFACE Routine 09/27/2019 CKD (chron ic kidney ANTIBODY 11:50 AM PIANO REGULATOR disease), stage IV (HCC) Hypertensive renal disease Diabetes mellitus due to underlying condition with chronic kidney disease on chronic dialysis, without long-term current use of insulin (HCC) Pre-transplant evaluation for chronic kidney disease CBC W/PLT COUNT & AUTO Routine 09/27/2019 CKD (ch ronic kidney DIFFERENTIAL 11:49 AM PIANO REGULATOR disease), stage IV (HCC) Hypertensive renal disease Diabetes mellitus due to underlying condition with chronic kidney disease on chronic dialysis, without long-term current use of insulin (HCC) Pre-transplant evaluation for chronic kidney disease AB SPECIFICITY CLASS I Routine 09/27/2019 CKD (ch ronic kidney 11:49 AM PIANO REGULATOR disease), stage IV (HCC) Hypertensive renal disease Diabetes mellitus due to underlying condition with chronic kidney disease on chronic dialysis, without long-term current use of insulin (HCC) Pre-transplant evaluation for chronic kidney disease TREPONEMA PALLIDUM - Routine 09/27/2019 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 SYPHILIS IGG 11:49 AM PIANO REGULATOR disease), stage IV (HCC) Hypertensive renal disease Diabetes mellitus due to underlying condition with chronic kidney disease on chronic dialysis, without long-term current use of insulin (HCC) Pre-transplant evaluation for chronic kidney disease RPR TITER Routine 09/27/2019 CKD (chronic ki dney 11:49 AM PIANO REGULATOR disease), stage IV (HCC) Hypertensive renal disease Diabetes mellitus due to underlying condition with chronic kidney disease on chronic dialysis, without long-term current use of insulin (HCC) Pre-transplant evaluation for chronic kidney disease FLOW PRA CLASS II WITH Routine 09/27/2019 CKD (ch ronic kidney REFLEX TO ANTIBODY 11:49 AM PIANO REGULATOR disease), stage IV (HCC) SPECIFICITY Hypertensive renal disease Diabetes mellitus due to underlying condition with chronic kidney disease on chronic dialysis, without long-term current use of insulin (HCC) Pre-transplant evaluation for chronic kidney disease FLOW PRA CLASS I WITH Routine 09/27/2019 CKD (chr onic kidney REFLEX TO ANTIBODY 11:49 AM PIANO REGULATOR disease), stage IV (HCC) SPECIFICITY Hypertensive renal disease Diabetes mellitus due to underlying condition with chronic kidney disease on chronic dialysis, without long-term current use of insulin (HCC) Pre-transplant evaluation for chronic kidney disease VARICELLA ZOSTER Routine 09/27/2019 CKD (chronic kidney ANTIBODY, IGG 11:49 AM PIANO REGULATOR disease), stage IV (HCC) Hypertensive renal disease Diabetes mellitus due to underlying condition with chronic kidney disease on chronic dialysis, without long-term current use of insulin (HCC) Pre-transplant evaluation for chronic kidney disease URIC ACID Routine 09/27/2019 CKD (chronic ki dney 11:49 AM PIANO REGULATOR disease), stage IV (HCC) Hypertensive renal disease Diabetes mellitus due to underlying condition with chronic kidney disease on chronic dialysis, without long-term current use of insulin (HCC) Pre-transplant evaluation for chronic kidney disease RPR Routine 09/27/2019 CKD (chronic ki dney 11:49 AM PIANO REGULATOR disease), stage IV (HCC) Hypertensive renal disease Diabetes mellitus due to underlying condition with chronic kidney disease on chronic dialysis, without long-term current use of insulin (HCC) Pre-transplant evaluation for chronic kidney disease PT/APTT Routine 09/27/2019 CKD (chronic ki dney 11:49 AM PIANO REGULATOR disease), stage IV (HCC) Hypertensive renal disease Diabetes mellitus due to underlying condition with chronic kidney disease on chronic dialysis, without long-term current use of insulin (HCC) Pre-transplant evaluation for chronic kidney disease PHOSPHORUS Routine 09/27/2019 CKD (chronic ki dney 11:49 AM PIANO REGULATOR disease), stage IV (HCC) Hypertensive renal disease Diabetes mellitus due to underlying condition with chronic kidney disease on chronic dialysis, without long-term current use of insulin (HCC) Pre-transplant evaluation for chronic kidney disease LACTATE DEHYDROGENASE Routine 09/27/2019 CKD (chr onic kidney (LDH) 11:49 AM PIANO REGULATOR disease), stage IV (HCC) Hypertensive renal disease Diabetes mellitus due to underlying condition with chronic kidney disease on chronic dialysis, without long-term current use of insulin (HCC) Pre-transplant evaluation for chronic kidney disease GAMMA GLUTAMYL Routine 09/27/2019 CKD (chronic ki dney TRANSFERASE (GGT) 11:49 AM PIANO REGULATOR disease), stage IV (HCC) Hypertensive renal disease Diabetes mellitus due to underlying condition with chronic kidney disease on chronic dialysis, without long-term current use of insulin (HCC) Pre-transplant evaluation for chronic kidney disease EBV ANTIBODY, IGM Routine 09/27/2019 CKD (chronic kidney 11:49 AM PIANO REGULATOR disease), stage IV (HCC) Hypertensive renal disease Diabetes mellitus due to underlying condition with chronic kidney disease on chronic dialysis, without long-term current use of insulin (HCC) Pre-transplant evaluation for chronic kidney disease EBV ANTIBODY, IGG Routine 09/27/2019 CKD (chronic kidney 11:49 AM PIANO REGULATOR disease), stage IV (HCC) Hypertensive renal disease Diabetes mellitus due to underlying condition with chronic kidney disease on chronic dialysis, without long-term current use of insulin (HCC) Pre-transplant evaluation for chronic kidney disease COMPREHENSIVE METABOLIC Routine 09/27/2019 CKD (c hronic kidney PANEL 11:49 AM PIANO REGULATOR disease), stage IV (HCC) Hypertensive renal disease Diabetes mellitus due to underlying condition with chronic kidney disease on chronic dialysis, without long-term current use of insulin (HCC) Pre-transplant evaluation for chronic kidney disease CYTOMEGALOVIRUS ANTIBODY, Routine 09/27/2019 CKD (chronic kidney IGM 11:49 AM PIANO REGULATOR disease), stage IV (HCC) Hypertensive renal disease Diabetes mellitus due to underlying condition with chronic kidney disease on chronic dialysis, without long-term current use of insulin (HCC) Pre-transplant evaluation for chronic kidney disease CYTOMEGALOVIRUS ANTIBODY, Routine 09/27/2019 CKD (chronic kidney IGG 11:49 AM PIANO REGULATOR disease), stage IV (HCC) Hypertensive renal disease Diabetes mellitus due to underlying condition with chronic kidney disease on chronic dialysis, without long-term current use of insulin (HCC) Pre-transplant evaluation for chronic kidney disease CBC W/PLT COUNT & AUTO Routine 09/27/2019 CKD (ch ronic kidney DIFFERENTIAL 11:49 AM PIANO REGULATOR disease), stage IV (HCC) Hypertensive renal disease Diabetes mellitus due to underlying condition with chronic kidney disease on chronic dialysis, without long-term current use of insulin (HCC) Pre-transplant evaluation for chronic kidney disease after 03/19/2019 Results * PERIPHERAL VASCULAR REPORT - SCAN (10/19/2019 9:22 PM PIANO REGULATOR) Narrative Performed At This result has an attachment that is n ot available. * ECHOCARDIOGRAM REPORT - SCAN (10/19/2019 9:20 PM PIANO REGULATOR) Narrative Performed At This result has an attachment that is n ot available. * TRANSFUSION SERVICE REPORT - SCAN (10/19/2019 6:05 PM PIANO REGULATOR) Only the most recent of 2 results within the time period is included. Narrative Performed At This result has an attachment that is n ot available. * Stress Echo With Tracing (10/18/2019 11:08 AM PIANO REGULATOR) Ejection Fraction [facility] ECHO HEARTLAB [facility] Specimen Narrative Performed At Stress Echocardiography Report [facility] ECHO HEARTLAB Demographics [facility] Patient Name GARRET SEWELL ate of Study 10/18/2019 JR. [id number] GenderMale Visit Number [id number] RaceJus hsun [id number] Room Number Number Date of Birth1955 Referring Physician Dilia Aparicio Age64 year(s) Regional Guide Edgar Briceno, Physician Fellow Keaton Morocho MD [...] Peak HR: 100 bpm HR BP Product: 56230 Peak BP: 206/78 mmHg Predicted HR: 158 [...] External Ris In - 10/19/2019 7:14 AM PIANO REGULATOR Stress Echocardiography Report Demographics Patient Name AUGUST SEWELL Date of Study 10/18/2019 Gender Male Visit Number [id number] Race Unknown Room Number Number Date of 1955 Referring Physician Dilia Aparicio Age 64 year(s) Regional Guide Edgar Archibald Interpreting Holley Briceno Physician Fellow [...] Performing Organization Address City/State/Zipcode Ph one Number [facility] ECHO HEARTLAB [employer] [facility] * 2D Echo W/Doppler(CW/PW/Color) (10/18/2019 10:28 AM PIANO REGULATOR) Ejection Fraction [facility] ECHO HEARTLAB [employer] [facility] Specimen Narrative Performed At Transthoracic Echocardiography Report (TTE) [facility] ECH O HEARTLAB Demographics [facility] Patient Name GARRET SEWELL ate of Study 10/18/2019 [id number] GenderMale Visit Number [id number] Amanda tafoya [id number] Room Number Number Date of Birth1955 Referring Physician Dilia Aparicio Age64 year(s) Regional Guide Edgar Briceno, Physician Fellow Keaton Morocho MD [...] External Ris In - 10/19/2019 7:21 AM PIANO REGULATOR Transthoracic Echocardiography Report (TTE) Demographics Patient Name AUGUST SEWELL Date of Study 10/18/2019 Gender Male Visit Number [id number] Race Unknown Room Number Number Date of 1955 Referring Physician Dilia Aparicio Age 64 year(s) Regional Guide Edgar Archibald Interpreting Holley Briceno, Physician MD [...] VTI (PW): 23.72 cm Performing Organization Address City/State/[facility] one Number [facility] ECHO HEARTLAB [facility] * Treadmill tolerance(Non-Nuclear Treadmill) (10/18/2019 10:00 AM PIANO REGULATOR) Specimen Narrative Performed At Protocol Name DOBUT [...] External Ris In - 10/24/2019 4:44 PM PIANO REGULATOR Protocol Name DOBUT TM-1 Time In Exercise [...] on 10/24/2019 4:44:04 PM Performing Organization Address [facility] one Number GE MUSE * ECG 12 lead (10/18/2019 9:18 AM PIANO REGULATOR) Specimen Narrative Performed At Ventricular Rate 69 BPM GE MUSE Atrial Rate 69 BPM P-R Interval 282 ms QRS Duration 100 ms Q-T Interval 442 ms QTC Calculation(Bazett) 473 ms P [place] 71 degrees R [place] -43 degrees T [place] 60 degrees Sinus rhythm with 1st degree A-V block Left axis deviation Abnormal ECG No previous ECGs available Confirmed by MD Lynne Roberto ([id number]) on 10/19/2019 11:06:49 AM Procedure Note Interface, External Ris In - 10/19/2019 11:06 AM PIANO REGULATOR Ventricular Rate 69 BPM Atrial Rate 69 BPM P-R Interval 282 ms QRS Duration 100 ms Q-T Interval 442 ms QTC Calculation(Bazett) 473 ms P [place] 71 degrees R [place] -43 degrees T [place] 60 degrees Sinus rhythm with 1st degree A-V block Left axis deviation Abnormal ECG No previous ECGs available Confirmed by MD Lynne Roberto ([id number]) on 10/19/2019 11:06:49 AM Performing Organization Address [facility]/[place] Ph one Number GE MUSE * XR chest 2 views (10/18/2019 8:56 AM PIANO REGULATOR) Specimen Narrative Performed At FINAL REPORT GE [...] Report Verified Date/Time: 0 10:01:55 Reading Location: [facility] Radiolo gy Reading Room Procedure Note Interface, External Ris In - 10/18/2019 10:04 AM PIANO REGULATOR FINAL REPORT INDICATION: Pre kidney transplant evaluation. [...] Report Verified Date/Time: 10/18/2019 10:01:55 Reading Location: [facility] Radiology Reading Room Performing Organization Address City/State/Zipcode Ph one Number [facility] * US abdomen complete (10/18/2019 8:07 AM PIANO REGULATOR) Specimen Narrative Performed At FINAL REPORT [facility] Abdominal ultrasound dated 10/18/2019 History: Kidney transplant evaluation. COMPARISON: None Findings: Liver is normal in size and echogenicit y.The liver qpxxkipq09 cm in length.No focal lesion is noted [...] Report Verified Date/Time: 0 09:36:15 Reading Location: [address] Radiolo gy Reading Room Procedure Note Interface, External Ris In - 10/18/2019 9:38 AM PIANO REGULATOR FINAL REPORT Abdominal ultrasound dated 10/18/2019 History: [...] Report Verified Date/Time: 10/18/2019 09:36:15 Reading Location: [address] Radiology Reading Room Performing Organization Address City/State/Zipcode Ph one Number GE RIS * Blood typing, automated (10/18/2019 7:13 AM PIANO REGULATOR) Only the most recent of 2 results within the time period is included. ABO/RH AUTOMATED (BEAKER) O POSITIVE [facility] Specimen Blood Performing Organization Address [facility]/[place] Ph one Number [address] [address] [facility] * PSA (10/18/2019 7:13 AM PIANO REGULATOR) PSA 0.3 0.0 - 4.0 ng/mL [facility] Specimen Blood Narrative Performed At Engineering Technical Analyst ID - [id number] [facility] Performing Organization Address [facility] one Number [address] [address] [facility] * Hemoglobin A1c (10/18/2019 7:13 AM PIANO REGULATOR) Hemoglobin A1C 7.7 (H) 4.3 - 6.1 % [facility] Specimen Blood Performing Organization Address [facility] one Number [address] [facility] * Lipid panel (10/18/2019 7:13 AM PIANO REGULATOR) Triglycerides 120 mg/dL [facility] Cholesterol 105 mg/dL [facility] HDL 32 mg/dL [facility] LDL Calculated 49 mg/dL [facility] Specimen Blood Narrative Performed At Triglyceride Reference Range: [facility] Low Risk <150 [facility] [id number] High Risk 200-499 Very High Risk>=500 Cholesterol Reference Range: Low Risk <200 [id number] High Risk>240 HDL Cholesterol Reference Range: Low Risk >=60 High Risk <40 LDL Cholesterol Reference Range: Optimal<100 Near Wiutlat030-140 Wwpjwkcsut322-272 Aavp527-650 Very High >=190 Engineering Technical Analyst ID - [email or web address] M Performing Organization Address [facility]/[place] Ph one Number [place] [phone] [place], [place] [address] [facility] * HLA TYPING CII (09/27/2019 11:50 AM PIANO REGULATOR) HLA-DR AG1 10 [facility] HLA TESTING HLA-DR AG2 1 [facility] HLA TESTING HLA-DQA1 AG 1-1 01 [facility] HLA TESTING HLA-DQA1 AG 1-2 01 [facility] HLA TESTING HLA-DQB1 AG 1-1 5 [facility] HLA TESTING HLA-DQB1 AG 1-2 5 [facility] HLA TESTING HLA-DPA1 AG 1-1 02 [facility] HLA TESTING HLA-DPA1 AG 1-2 02 [facility] HLA TESTING HLA-DPB1 AG 1-1 10:01 [facility] HLA TESTING HLA-DPB1 AG 1-2 17:01 [facility] HLA TESTING Specimen Blood Narrative Performed At Disclaimer: [facility] HLA TESTING This test was developed and its perform ance characteristics determined by the [facility]. It has not been cleared or [...] complexity clinical laboratory testing. Performing Organization Address City/State[facility] Ph one Number [facility] HLA TESTING [address] [facility] [place], [place]: [id number], [place] [address] CLIA#[id number] CAP#[id number] [id number] * HLA TYPING CI (09/27/2019 11:50 AM PIANO REGULATOR) HLA-A AG1 2 [facility] HLA TESTING HLA-A AG2 3 [facility] HLA TESTING HLA-B AG1 35 [facility] HLA TESTING HLA-B AG2 35 [facility] HLA TESTING HLA-C AG1 4 [facility] HLA TESTING HLA-C AG2 4 [facility] HLA TESTING HLA-B BW1 6 [facility] HLA TESTING HLA-B BW2 6 [facility] HLA TESTING Specimen Blood Narrative Performed At Disclaimer: [facility] HLA TESTING This test was developed and its perform ance characteristics determined by the [facility]. It has not been cleared or [...] complexity clinical laboratory testing. Performing Organization Address City/State/[facility] Ph one Number [facility] HLA TESTING ONE Luis Gregorio, MS: [id number], [place] [address] CLIA#[id number] CAP#[id number] UNOS#[id number] * T Spot TB (09/27/2019 11:50 AM PIANO REGULATOR) T-Spot TB Negative [facility] Neg Ctrl Spot Count 0 [facility] Panel A Spot 0 [facility] Panel B Spot 1 [facility] Pos Ctrl Spot Ct 0 [facility] Scan Result [facility] Specimen Blood Narrative Performed At This result has an attachment that is n ot available. Performing Organization Address City/[facility] Ph one Number [facility] [place] [address] LABORATORIES 100 * HIV-1 Antigen with HIV-1/2 Antibody (09/27/2019 11:50 AM PIANO REGULATOR) HIV-1 Antigen with HIV Nonreactive Nonreactive [facility] 1&2 Antibody [facility] Specimen Blood Narrative Performed At Engineering Technical Analyst [facility] Performing Organization Address City/[facility] Ph one [place] [phone] * Hepatitis C Antibody (09/27/2019 11:50 AM PIANO REGULATOR) Hepatitis C Ab Reactive (A) Nonreactive [facility] Specimen Blood Narrative Performed At Engineering Technical Analyst [facility] Performing Organization Address [facility] Ph one [place] [address] [address] [phone] [place] [address] * Hepatitis B core antibody, IgM (09/27/2019 11:50 AM PIANO REGULATOR) Hep B C IgM Nonreactive Nonreactive [facility] Specimen Blood Narrative Performed At Engineering Technical Analyst ID - [facility] Performing Organization Address City/State/Zipcode Ph one [address] 0 [phone] [address] * Hepatitis B surface antibody (09/27/2019 11:50 AM PIANO REGULATOR) Hep B S Ab <8.0 <8.0 mIU/mL [facility] Specimen Blood Narrative Performed At Engineering Technical Analyst ID [facility] Performing Organization Address City/[facility] Ph one [address] 0 [phone] [place] [address] * Hepatitis B surface antigen (09/27/2019 11:50 AM PIANO REGULATOR) HBsAg Screen Nonreactive Nonreactive [facility] Specimen Blood Narrative Performed At Engineering Technical Analyst ID [facility] Performing Organization Address City/[facility] Ph one [address] 0 [phone] [place] [address] * Direct AHG (JOHNNY)/Direct Sergio (09/27/2019 11:50 AM PIANO REGULATOR) Direct AHG-IGG NEGATIVEComment: saline [facility] control-negative [facility] Direct AHG-C3B, C3D NEGATVIE [facility] Specimen Blood Performing Organization Address City/[facility] Ph one [address] [address] [facility] * PTH, Intact (09/27/2019 11:50 AM PIANO REGULATOR) PTH 462.7 (H) 8.5 - 72.5 pg/mL [facility] Specimen Blood Narrative Performed At Engineering Technical Analyst ID [facility] Performing Organization Address City/[facility]/Zipcode Ph one [place] [address] 0 [phone] [place] [address] * MHA - TP (09/27/2019 11:49 AM PIANO REGULATOR) TREPONEMA PALLIDUM, Reactive (AA) Nonreactive [facility] SYPHILIS IGG [facility] Specimen Blood Narrative Performed At Test performed by IVAN method. [facility] Performing Organization Address City/[facility]/[place] Ph one Number [facility] [address] [place], [place] [address] [facility] * FLOW PRA CLASS II WITH REFLEX TO ANTIBODY SPECIFICITY (09/27/2019 11:49 AM PIANO REGULATOR) Flow Class II Percent 0 [facility] HLA TESTI NG Positive Specimen Blood Narrative Performed At Disclaimer: [facility] HLA TESTING This test was developed and its perform ance characteristics determined by the [facility]. It has not been cleared or [...] complexity clinical laboratory testing. Performing Organization Address [facility] one Number [facility] HLA TESTING ONE Luis Gregorio, MS: [id number], [place] [address] CLIA#[id number] CAP#[id number] UNOS#[id number] * FLOW PRA CLASS I WITH REFLEX TO ANTIBODY SPECIFICITY (09/27/2019 11:49 AM PIANO REGULATOR) Flow Class I Percent 10 [facility] HLA TESTIN G Positive Specimen Blood Narrative Performed At Disclaimer: [facility] HLA TESTING This test was developed and its perform ance characteristics determined by the [facility]. It has not been cleared or [...] complexity clinical laboratory testing. Performing Organization Address City/[facility] one Number [facility] HLA TESTING ONE Luis Gregorio MS: [id number], [place] [address] CLIA#[id number] CAP#[id number] UNOS#[id number] * AB SPECIFICITY CLASS I (09/27/2019 11:49 AM PIANO REGULATOR) AB Specificity Class I NO CLASS I ANTIBODY DETECTED [facility] HLA TESTING WITH MFIs > 4000 Specimen Blood Narrative Performed At Disclaimer: [facility] HLA TESTING This test was developed and its perform ance characteristics determined by the [facility]. It has not been cleared or [...] complexity clinical laboratory testing. Performing Organization Address City/[facility]/[place] Ph one Number [facility] HLA TESTING ONE Luisana Gregorio, MS: [id number], [place] [address] CLIA#[id number] CAP#[id number] UNOS#[id number] * RPR Titer (09/27/2019 11:49 AM PIANO REGULATOR) RPR Titer 1:4 [facility] Specimen Blood Performing Organization Address City/[facility]/[place] Ph one Number [address] [address] MEDICAL CENTER * PT/aPTT (09/27/2019 11:49 AM PIANO REGULATOR) Protime 13.7 11.9 - 14.2 seconds [facility] INR 1.1 <=5.9 [facility] PTT 31.4 22.5 - 36.0 seconds [facility] Specimen Blood Narrative Performed At Effective 01/18/2019: PT Reference Range Change [facility] New: 11.9-14.2Previous: 11.7-14.7 [facility] MEDICAL CE NTER RECOMMENDED COUMADIN/WARFARIN INR THERA PY RANGES STANDARD DOSE: 2.0-3.0Includes: PRO PHYLAXIS for venous thrombosis, systemic embolization; TREATMENT for venous thro mbosis and/or pulmonary embolus. HIGH RISK: Target INR is 2.5-3.5 for pa tients wiht mechanical heart valves. Performing Organization Address City/State/Zipcode Ph one Number [facility] [address] [place], [place] [address] MEDICAL CENTER * CBC with platelet count + automated diff (09/27/2019 11:49 AM PIANO REGULATOR) WBC 10.2 3.5 - 10.5 K/L [facility] RBC 4.10 (L) 4.63 - 6.08 M/L [facility] Hemoglobin 11.5 (L) 13.7 - 17.5 GM/DL [facility] Hematocrit 35.6 (L) 40.1 - 51.0 % [facility] MCV 86.8 79.0 - 92.2 fL [facility] MCH 28.0 25.7 - 32.2 pg [facility] MCHC 32.3 32.3 - 36.5 GM/DL [facility] RDW 13.5 11.6 - 14.4 % [facility] Platelets 265 150 - 450 K/CU MM [facility] MPV 10.8 9.4 - 12.4 fL [facility] nRBC 0 0 - 0 /100 WBC [facility] % Neutros 60 % [facility] % Lymphs 28 % [facility] % Monos 9 % [facility] % Eos 3 % [facility] % Baso 1 % [facility] # Neutros 6.10 (H) 1.78 - 5.38 K/L [facility] # Lymphs 2.82 1.32 - 3.57 K/L [facility] # Monos 0.92 (H) 0.30 - 0.82 K/L [facility] # Eos 0.31 0.04 - 0.54 K/L [facility] # Baso 0.05 0.01 - 0.08 K/L [facility] Immature 0 0 - 1 % [facility] Granulocytes-Relative [facility] Specimen Blood Performing Organization Address [facility] one Number [address] * Cytomegalovirus antibody, IgM (09/27/2019 11:49 AM PIANO REGULATOR) CMV IGM Negative Negative, Equivocal [facility] Specimen Blood Narrative Performed At CMV IgM Result Interpretation: [facility] </= 0.8 Al Negative [facility] 0.9-1.0 Al Equivocal >/= 1.1 Al Positive Performing Organization Address [facility] one Number [address] * EBV-VCA antibody, IgM (09/27/2019 11:49 AM PIANO REGULATOR) GUME MORALES VIRAL CAPSID Negative Negative, Equivocal [facility] ANTIGEN IGM [facility] Specimen Blood Narrative Performed At Gume Morales Viral Capsid Antigen IgM Result Interpre tation: [facility] </= 0.8 Al Negative [facility] 0.9-1.0 Al Equivocal >/= 1.1 Al Positive Performing Organization Address [facility] one Number [address] * EBV-VCA antibody, IgG (09/27/2019 11:49 AM PIANO REGULATOR) GUME MORALES VIRAL CAPSID Positive (A) Negative, Equivocal [facility] ANTIGEN IGG [facility] Specimen Blood Narrative Performed At Gume Morales Viral Capsid Antigen IgG Result Interpre tation: [facility] </= 0.8 Al Negative [facility] 0.9-1.0 Al Equivocal >/= 1.1 Al Positive Performing Organization Address [facility] one Number [address] 0 [phone] [place] [address] * RPR (09/27/2019 11:49 AM PIANO REGULATOR) RPR Reactive (A) Nonreactive [facility] Specimen Blood Performing Organization Address [facility] one Number [address] * Cytomegalovirus antibody, IgG (09/27/2019 11:49 AM PIANO REGULATOR) CYTOMEGALOVIRUS, IGG Positive (A) Negative, Equivocal [facility] Specimen Blood Narrative Performed At CMV IgG Result Interpretation: [facility] </= 0.8 Al Negative [facility] 0.9-1.0 Al Equivocal >/=1.1 AlPositive Performing Organization Address [facility] one Number [address] * Varicella Zoster Antibody, IgG (09/27/2019 11:49 AM PIANO REGULATOR) Varicella IgG 7.2 [facility] Specimen Blood Narrative Performed At VARICELLA ZOSTER RESULT INTERPRETATIONS: [facility] <=0.8 AlNo nreactive:Presumed non-immune to VZV [facility] 0.9-1.0 AlEqui vocal >=1.1 AlRe active:Presumed immune to VZV Performing Organization Address [facility] one Number [place] [address] 0 [phone] [place] [address] * Uric Acid (09/27/2019 11:49 AM PIANO REGULATOR) Uric Acid 4.6 2.6 - 7.2 mg/dL [facility] Specimen Blood Narrative Performed At Engineering Technical Analyst ID - [facility] Performing Organization Address City/[facility] Ph one [place] [address] [address] [phone] [place] [address] * Phosphorus (09/27/2019 11:49 AM PIANO REGULATOR) Phosphorus 4.7 2.3 - 4.7 mg/dL [facility] Specimen Blood Narrative Performed At Engineering Technical Analyst ID [facility] Performing Organization Address City/[facility] Ph one [place] [address] [address] [phone] [place] [address] * Lactate Dehydrogenase (LDH) (09/27/2019 11:49 AM PIANO REGULATOR) LDH 231 (H) 125 - 220 U/L [facility] Specimen Blood Narrative Performed At Engineering Technical Analyst ID - [facility] Performing Organization Address City/[facility] Ph one [place] [address] [address] [phone] [place] [address] * Gamma Glutamyl Transferase (GGT) (09/27/2019 11:49 AM PIANO REGULATOR) GGT 84 (H) 9 - 64 U/L [facility] Specimen Blood Narrative Performed At Engineering Technical Analyst ID - [facility] Performing Organization Address City/[facility] Ph one [place] [address] [address] [phone] [place] [address] * Comprehensive metabolic panel (09/27/2019 11:49 AM PIANO REGULATOR) Protein, Total 7.5 6.0 - 8.3 gm/dL [facility] Albumin 4.0 3.5 - 5.0 g/dL [facility] Alkaline Phosphatase 161 (H) 40 - 150 U/L [facility] Total Bilirubin 0.5 0.2 - 1.2 mg/dL [facility] Sodium 133 (L) 136 - 145 meq/L [facility] Potassium 3.2 (L) 3.5 - 5.1 meq/L [facility] Chloride 94 (L) 98 - 107 meq/L [facility] CO2 27 22 - 29 meq/L [facility] BUN 34 (H) 7 - 21 mg/dL [facility] Creatinine 5.10 (H) 0.57 - 1.25 mg/dL [facility] Glucose 243 (H) 70 - 105 mg/dL [facility] Calcium 8.0 (L) 8.4 - 10.2 mg/dL [facility] AST 18 5 - 34 U/L [facility] ALT 20 6 - 55 U/L [facility] EGFR 12Comment: ESTIMATED GFR IS mL/min/1.73 sq m [facility] NOT ACCURATE CREATININE [facility] CLEARANCE IN PREDICTING GLOMERULAR FILTRATION RATE. ESTIMATED GFR IS NOT APPLICABLE FOR DIALYSIS PATIENTS. Specimen Blood Narrative Performed At Engineering Technical Analyst ID - ROSIANG [facility] Performing Organization Address City/State/Zipcode Ph one Number [facility] [address] [place], [place] [address] MEDICAL CENTER after 03/19/2019 Insurance Payer Benefit Subscriber ID Type Phone Address Plan / Group [employer] [facility] xxxxxxxxx [facility] HEALTHSPID Cont[place] ALL [id number]
--- OUTSIDE RECORDS SUMMARY | 2020-03-22 19:14 | XMS REPORT | Continuity of Care Document ---
Author [facility] t Organization [facility] Address [address] [place] [address] Phone Unavailable Care Team Providers Care Review Manager Name Role Phone Mohan NORMAN, Jose Luis Sutton PCP EARNEST WEBBER Attphys Unavailable Soledad Bowser Attphys Unavailable Camacho, Meriam Attphys Unavailable Makenna Ferguson Attphys Unavailable Markus Dobbs MD Attphys Markus DOBBS Attphys Unavailable Jose Luis Preston MD Attphys Delfino ROPER [facility], B Bella Attphys Unavailable Micah PINK, P Teodora Attphys Unavailable Stephan Guzmán DO Attphys [phone] Harman Rasmussen MD Attphys EARNEST WEBBER Admphys Unavailable Payers Payer Name Policy Type Policy Number Effective Date Expiration Date S ourkali [employer]IG[employer] HE[employer]PRING[employer] HE[employer]SPRING ALLxxxxxxxxxMaps Contracted xxxxxxxxx [facility] HEALTHSPRINGGNA HEALTHSPRING HMO MCR ADVxxxxxx /08/2018-PresentHMO xxxxxxxxxxx 2018 00:00:00 Ronnie Lr odist Problems Condition Name Condition Details Condition Category Status Onset Date Resolution Date Last Treatment Date Treating Clinician Comments Source ESRD (end stage renal disease) on dialysis ESRD (end s tage renal disease) on dialysis Disease Active 2019-08-23 00:00:00 Overview: currently on HD; planned transition to CCPD [facility] Diabetic retinopathy Diabetic retinopathy Disease Active 00:00:00 Overview: Bilateral; s/p laser surgery t o L eye; pending to R eye [facility] Diabetes mellitus Diabetes mellitus Disease Active 2013-08-23 00:00:00 [facility] Hyperlipidemia Hyperlipidemia Disease Active 2013-08-23 00:00:00 [facility] Hypertension Hypertension Disease Active 1989-08-23 00:00:00 [facility] Allergies, Adverse Reactions, Alerts Allergy Name Allergy Type Status Severity Reaction(s) Onset Date Inacti ve Date Treating Clinician Comments Source No Known Allergies DA Active U 2019-09-29 00:00:00 [facility] No Known Allergies DA Active U 2015-05-25 00:00:00 [facility] Family History Family Member Diagnosis Comments Start Date Stop Date Source Natural brother Diabetes [facility] Natural brother Hypertension [facility] Natural mother Diabetes [facility] Natural mother Hypertension [facility] Social History Social Habit Start Date Stop Date Quantity Comments Source History SDOH Alcohol Std Drinks [facility] History SDOH Alcohol Binge [facility] Sex Assigned At [facility] History SDOH Alcohol Frequency 2019-09-27 00:00:00 2019-09-27 00:00:[address] [facility] Alcohol intake 2019-07-03 00:00:00 2019-07-03 00:00:00 Lifetime non-drinker (finding) Ronnie Mcfarland Smoking Status Start Date Stop Date Source Never smoker [facility] Medications Ordered Medication Name Filled Medication Name Start Date Stop Da te Current Medication? Ordering Clinician Indication Dosage Frequency Signature (SIG) Comments Components Source calcium carbonate (TUMS) 500 mg chewable tablet 2019-09-27 10:56 :38 Yes 1{tbl} QD Take 1 tablet by mouth daily. [facility] insulin degludec (TRESIBA FLEXTOUCH U-200) 200 unit/mL (3 mL ) InPn 2019-09-27 10:54:50 Yes 16U Q24H [address] [facility] ferrous fumarate 325 mg (106 mg iron) Tab 2019-09-27 10:54:50 Yes 650mg Q24H 650 mg daily. [facility] NIFEdipine (PROCARDIA-XL) 60 MG (OSM) 24 hr tablet 2019-09 10:54:49 Yes 60mg QD Take 60 mg by mouth daily. [facility] multivitamin (DAILY DIET SUPPORT ORAL) 2019-09-27 10:47:36 Yes QD daily. [facility] atorvastatin (LIPITOR) 80 MG tablet 2019-09-15 00:00:00 Yes QD daily. [facility] HYDROcodone-acetaminophen (NORCO 7.5-325) 7.5-325 mg per tab let 2019-09-12 00:00:[address] [facility] metoprolol (TOPROL-XL) 50 MG 24 hr tablet 2019-09-06 00:00:00 Yes TK 1 T PO ONCE D [facility] chlorthalidone (HYGROTON) 25 MG tablet 2019-09-06 00:00:00 Yes QD daily. [facility] chlorthalidone (HYGROTEN) 25 MG tablet 2019-07-03 20:50:59 [...] MG tablet 2019-07-03 20:47:32 Ye s 800mg Q.[id number] Take 800 mg by mouth 3 (three) times a day with meals. Ronnie Mcfarland Immunizations Ordered Immunization Name Filled Immunization Name Date Status Comments Source Tdap 2019-02-23 00:00:00 Completed Jesica anguiano [facility] Vital Signs Vital Name Observation Time Observation Value Comments Source Systolic blood pressure 2019-10-18 11:23:00 173 mm[Hg] [facility] Diastolic blood pressure 2019-10-18 11:23:00 70 mm[Hg] [facility] Heart rate 2019-10-18 11:23:00 90 /min [facility] Body height 2019-10-18 09:00:00 167.6 cm [facility] Body weight Measured 2019-10-18 09:00:[address] [facility] BMI 2019-10-18 09:00:00 28.41 kg/m2 [facility] Body temperature 2019-09-27 13:03:[address] [facility] Respiratory rate 2019-09-27 13:03:00 18 /min [facility] Systolic blood pressure 2019-07-03 21:05:00 189 [...] Procedure Date / Time Performed Performing Clinician [facility] PERIPHERAL VASCULAR REPORT - SCAN 2019-10-19 21:22:21 Provid er, Default Scanning [facility] ECHOCARDIOGRAM REPORT - SCAN 2019-10-19 21:20:34 Provider, Leiaau lt Scanning [facility] TRANSFUSION SERVICE REPORT - SCAN 2019-10-19 18:05:20 Provid er, Default Scanning [facility] STRESS ECHO 2019-10-18 11:08:[address] [facility] 2D ECHO W/ DOPPLER (CW/PW/COLOR) 2019-10-18 10:28:[address] [facility] TREADMILL TOLERANCE(NON-NUCLEAR TREADMILL) 2019-10-18 10:00: 09 Unknown, Hl7 Doctor [facility] ECG 12-LEAD 2019-10-18 09:18:[address] [facility] XR CHEST 2 VIEWS 2019-10-18 08:56:00 Diana Dobbs [facility] US ABDOMEN COMPLETE 2019-10-18 08:07:00 [facility] Dobbs [facility] PSA 2019-10-18 07:13:[address] [facility] LIPID PANEL 2019-10-18 07:13:[address] [facility] HEMOGLOBIN A1C 2019-10-18 07:13:[address] [facility] BLOOD TYPING, AUTOMATED 2019-10-18 07:13:[address] [facility] TRANSFUSION SERVICE REPORT - SCAN 2019-09-28 18:07:11 Provid er, Default Scanning [facility] HEPATITIS B SURFACE ANTIBODY 2019-09-27 11:50:[address] [facility] HEPATITIS B SURFACE ANTIGEN 2019-09-27 11:50:[address] [facility] HEPATITIS B CORE ANTIBODY, IGM 2019-09-27 11:50:[address] [facility] HEPATITIS C ANTIBODY 2019-09-27 11:50:00 TimminsDiana [facility] HIV-1 ANTIGEN WITH HIV-1/2 ANTIBODY 2019-09-27 11:50:[address] [facility] PTH, INTACT 2019-09-27 11:50:[address] [facility] T SPOT TB 2019-09-27 11:50:[address] [facility] HLA TYPING CI 2019-09-27 11:50:[address] [facility] HLA TYPING CII 2019-09-27 11:50:00 [facility]DIRECT DONNIE 2019-09-27 11:50:[address] [facility] BLOOD TYPING, AUTOMATED 2019-09-27 11:50:[address] [facility] CYTOMEGALOVIRUS ANTIBODY, IGG 2019-09-27 11:49:[address] [facility] CYTOMEGALOVIRUS ANTIBODY, IGM 2019-09-27 11:49:00 TimminEliz hebert [facility] COMPREHENSIVE METABOLIC PANEL 2019-09-27 11:49:00 TimminEliz hebert [facility] EBV ANTIBODY, IGM 2019-09-27 11:49:[address] [facility] GAMMA GLUTAMYL TRANSFERASE (GGT) 2019-09-27 11:49:00 TimminAvelino hebert [facility] LACTATE DEHYDROGENASE (LDH) 2019-09-27 11:49:00 TimCassie zavaleta [facility] PHOSPHORUS 2019-09-27 11:49:00 Timminemilee [facility] PT/APTT 2019-09-27 11:49:00 Timminemilee [facility] RPR 2019-09-27 11:49:00 [facility] URIC ACID 2019-09-27 11:49:00 Timmins [facility] VARICELLA ZOSTER ANTIBODY, IGG 2019-09-27 11:49:00 [facility] FLOW PRA CLASS I WITH REFLEX TO ANTIBODY SPECIFICITY 2019-09 11:49:00 [facility] FLOW PRA CLASS II WITH REFLEX TO ANTIBODY SPECIFICITY 09-27 11:49:00 [facility] RPR TITER 2019-09-27 11:49:00 [facility] TREPONEMA PALLIDUM - SYPHILIS IGG 2019-09-27 11:49:00 [facility]Crissy [facility] AB SPECIFICITY CLASS I 2019-09-27 11:49:00 [facility] CBC W/PLT COUNT & AUTO DIFFERENTIAL 2019-09-27 11:49:00 [facility] URINALYSIS SCREEN AND MICROSCOPY, WITH REFLEX TO CULTURE 201 05-03-11 15:21:00 Matt Etienne HC COMPLETE BLD COUNT W/AUTO DIFF 2019-07-03 15:19:00 Rocio Etienne COMPREHENSIVE METABOLIC PANEL 2019-07-03 15:19:00 Matt Etienne LIPASE LEVEL 2019-07-03 15:19:00 Matt Etienne ESTIMATED GFR 2019-07-03 15:19:00 Matt Etienne [place] [facility] Plan of Care Planned Activity Planned Date Details Comments Source Future Scheduled Test 2021-06-15 00:00:00 PNEUMOCOCCAL VACCI NE 2-64 YEARS AT RISK (3 of 3 - PPSV23) [code = PNEUMOCOCCAL VACCINE 2-64 YEARS AT RISK (3 of 3 - PPSV23)] [facility] 2020-04-23 00:00:00 INFLUENZA VACCINE (#1) [code = INFLUENZA VACCINE (#1)] [facility] Scheduled Test 2020-04-17 00:00:00 Hemoglobin A1c josefina surement (procedure) [code = 87871591] [facility] Sched[facility] Test 2020-03-23 00:00:00 INFLUENZA VACCINE [code = INFLUENZA VACCINE] [facility] Scheduled Test 2019-08-24 00:00:00 MEDICARE ANNUAL WE LLNESS (YEAR 2 or FIRST YEAR if no IPPE) [code = MEDICARE ANNUAL WELLNESS (YEAR 2 or FIRST YEAR if no IPPE)] [facility] Future Scheduled Test 2017-02-17 00:00:00 SHINGLES VACCINES (#2) [code = SHINGLES VACCINES (#2)] [facility] Scheduled Test 2007 00:00:00 COLONOSCOPY SCREEN ING [code = COLONOSCOPY SCREENING] [facility] Scheduled Test 1967 00:00:00 DIABETIC FOOT EXAM [code = DIABETIC FOOT EXAM] [facility] Scheduled Test 1967 00:00:00 URINE MICROALBUMIN [code = URINE MICROALBUMIN] [facility] Scheduled Test 1967 00:00:00 DIABETIC EYE EXAM [code = DIABETIC EYE EXAM] [facility] Test 1967 00:00:00 Diabetic foot exam ination (regime/therapy) [code = 104331114] [facility] Future Scheduled Test 1967 00:00:00 Urine screening fo r protein (procedure) [code = 304444374] [facility] Future Scheduled Test 1957 00:00:00 DIABETIC RETINAL E YE EXAM [code = DIABETIC RETINAL EYE EXAM] [facility] Scheduled Test 1957 00:00:00 Screening for olivia gnsyl neoplasm of colon (procedure) [code = 251700283] [facility] Encounters Start Date/Time End Date/Time Encounter Type Admission Type Attendi [facility] Care Department Encounter ID Source 2019-07-03 00:00:00 2019-07-03 00:00:00 Emergency CARLITOS GUZMÁN [facility] [id number] [facility] Results Test Description Test Time Test Comments Results Result Comments Source FOOT LEFT COMPLETE 2020-03-19 14:45:00 [facility] [address] [address] Patient Name: NIKO BUSTILLO JR MR #: [id number] : 1955 Age/Sex: 64/M Req #: [id number] Adm Physician: EARNEST WEBBER MD Ordered by: SUN EDMONDS MD Report #: [id number] Location: [facility] Room/Bed: [place] [address] Procedure: [id number] DX/FOOT LEFT COMPLETE Exam Date: 03/19/20 Exam [...] 2:47 PM Dictated By: SCOTT DOUGLAS MD 1440 Transcribed By: GEOVANY on 03/19/20 1447 COPY TO: SUN EDMONDS MD CHEST SINGLE (PORTABLE) 2020-03-19 12:54:[address] [address] Patient Name: NIKO BUSTILLO JR MR #: [id number] : 1955 Age/Sex: 64/M Req #: [id number] Adm Physician: Ordered by: SUN EDMONDS MD Report #: [id number] Location: ER Room/Bed: Procedure: [id number] DX/CHEST SINGLE (PORTABLE) Exam Date: Exam Time: [...] 12:54 PM Dictated By: SCOTT DOUGLAS MD 1251 Transcribed By: GEOVANY on 03/19/20 1255 COPY TO: SUN EDMONDS MD Treadmill tolerance(Non-Nuclear [...] MAUREEN, ADELA ([id number]) on 10/24/2019 4:44:04 PM [facility] r ECG 12 lead 2019-10-19 11:06:53 Interface, E xternal Ris In - 10/19/2019 11:06 AM CSTVentricular Rate 69 BPMAtrial Rate 69 BPMP-R Interval 282 msQRS Duration 100 msQ-T Interval 442 msQTC Calculation(Bazett) 473 msP Manor 71 degreesR Manor - 43 degreesT Manor 60 degreesSinus rhythm with 1st degree A-V blockLeft axis deviationAbnormal ECGNo previous ECGs availableConfirmed by MD Guera, Tacho ([id number]) on 10/19/2019 11:06:[address] [facility] 2D Echo W/Doppler(CW/PW/Color) 2019-10-19 07:21:02 Ejection FractionSLEH ECHO HEARTLAB MKCKESSON CPACSInterface, External Ris In - 10/19/2019 7:21 AM CSTTransthoracic Echocardiography Report (TTE) Demographics Patient Name NIKO BUSTILLO Date of Study 10/18/2019 Gender Male Visit Number [id number] Race Unknown Room Number Number Date of 1955 Referring Physician Dilia Aparicio Age 64 year(s) Neurology Epilepsy Physician Edgar Archibald Interpreting Holley Briceno, Physician Fellow [...] l/min/m^2 RVOT RVOT VTI (PW): 23.[address] [facility] Stress Echo With Tracing 2019-10-19 07:14:29 Eje ction FractionSLEH ECHO HEARTLAB CKESSON CPACSInterface, External Ris In - 10/19/2019 7:14 AM CSTStress Echocardiography Report Demographics Patient Name NIKO BUSTILLO Date of Study 10/18/2019 Gender Male Visit Number [id number] Race Unknown Room Number Number Date of 1955 Referring Physician Dilia Aparicio Age 64 year(s) Neurology Epilepsy Physician Edgar Archibald Interpreting Holley Briceno, Physician Fellow [...] is a negative Echocardiographic Stress Test. Signature [facility] Hemoglobin A1c 2019-10-18 11:16:00 Test Item Hemoglobin A1C (test code = 4548-4) 7.7 % 4.3-6.1 H Lab Interpretation (test code = 15109-8) Abnormal [facility] [id number] 11:16:00* Test Item Value Reference Range Interpretation Comments HEMOGLOBIN A1C (CHRISTA) (test code = 368) 7.7 % 4.3-6.1 H RAD, CHEST, 2 [id number] 10:01:00Reason for Exam:->Pre kidney transplant evaluation.FINAL REPORT [...] MDReport Verified Date/Time: 10/18/2019 10:01:55 Reading Location: [facility] Radiology Reading Room chest 2 [id number] 10:01:00Interface, External Ris In - 10/18/2019 10:04 [...] MDReport Verified Date/Time: 10/18/2019 10:01:55 Reading Location: [facility] Radiology Reading Room [facility], COMPLETE 2019-10-18 09:36:00Reason for Exam:->Kidney [...] [place] Verified Date/Time: 10/18/2019 09:36:15 Reading Location: [address] Radiology Reading Room abdomen [id number] 09:36:00Interface, External Ris In - 10/18/2019 9:38 [...] MDReport Verified Date/Time: 10/18/2019 09:36:15 Reading Location: [address] Radiology Reading Room [facility]2020-02-26 08:48:00* Test Item Value Reference Range Interpretation Comments PSA (test code = 2857-1) 0.3 ng/mL 0-4 VALENTÍN (test code = VALENTÍN) Wet Roaster ID - DB Lab Interpretation (test code = 62956-2) Normal [facility]2020-02-26 08:48:00* Test Item Value Reference Range Interpretation Comments PROSTATE SPECIFIC ANTIGEN (BEAKER) (test code = 844) 0.3 ng/mL 0 .0-4.0 Wet Roaster ID - DBBlood typing, [id number] 07:58:00* Test Item Value Reference Range Interpretation Comments ABO/RH AUTOMATED (BEAKER) (test code = 2260) O POSITIVE [facility] HospitalLipid [id number] 07:56:00* Test Item Value Reference Range Interpretation Comments Triglycerides (test code = 2571-8) 120 mg/dL Cholesterol (test code = 2093-3) 105 mg/dL HDL (test code = 2085-9) 32 mg/dL LDL Calculated (test code = 09028-4) 49 mg/dL VALENTÍN (test code = VALENTÍN) Triglyceride Reference Range : Low Risk <150 Borderline 150-199 High Risk 200-499 Very High Risk >=500 Cholesterol Reference Range: Low Risk <200 Borderline 200-239 High Risk >240 HDL Cholesterol Reference Range: Low Risk >=60 High Risk <40 LDL Cholesterol Reference Range: Optimal <100 Near Optimal 100-129 Borderline 130-159 High 160-189 Very High >=190 Wet Roaster ID Vin Florian [facility] HospitalLIPID [id number] 07:56:00* Test Item Value Reference Range Interpretation [...] Borderline 130-159 High 160-189 Very High >=190 Wet Roaster ANGELLA CHINLA TYPING [id number] 22:51:00* Test Item Value Reference Range Interpretation [...] and its performance characteristics determined by the [facility] Laboratory. It has not been [...] to perform high complexity clinical laboratory testing. [facility] Hospital[facility]LA TYPING [id number] 22:51:00* Test Item Value Reference Range Interpretation [...] and its performance characteristics determined by the [facility] Laboratory. It has not been [...] to perform high complexity clinical laboratory testing. [facility]- XR RIBS UNI W/CXR 3+V [id number] 19:52:00 FAX: Myles Galarza [place]: [place] St: REG Name: NIKO ROYAL JR [facility] FSED : [birth year] Age/S: 64/M [address] [facility] [address] Unit #: [id number] Loc: [place] Phys: Myles Galarza MD [place], [place] [address] Acct: [id number] Dis Date: Status: REG ER PHONE #: Exam Date: 10/06/2019 5450 FAX #: Reason: FALL, RIGHT RIB PAIN EXAMS: CPT CODE: [id number] XR RIBS UNI W/CXR 3+[place] [address] EXAM: Right-sided rib series, 4 vi ews; [...] 10th rib on the right. Location code: [facility] at 1949 Reported and signed by: Lamin Mooney M.D. CC: Myles Galarza MD Technologist: Jeannine Biswas Trnscrd Date/Time/By: 10/06/2019 (1949) : By: MarinoGRW Orig Print D/T: S: 10/06/2019 (1953) PAGE 1 Signed Report HERNIA [id number] 14:34:00 RUN DATE: 10/05/19 [facility] PAGE 1 RUN TIME: 1434 Specimen Inqui ry RUN USER: INTERFACE PATIENT: NIKO BUSTILLO JR ACCT #: [id number] LOC: ASYA U #: [id number] AGE/SX: 64/M ROOM: RE10/04/19REG DR: Randall Curry MD : [birth year] BED: DIS: STATUS: [facility] TLOC: SPEC #: [id number] RECD: 10/04/19 STATUS: [facility] #: [id number] KARSTEN: 10/04/19- SUBM DR: Randall Curry MD ENTERED: 10/04/19 SP TYPE: HERNIA SAC OTHR DR: Herman Mccann MD ORDERED: GROSS COPIES TO: Randall Curry MD [address] [place] [address] [place] [address] [address] [id number] PROCEDURES: GROSS (10/05/19-1106) TISS UES: 1. INGUINAL REGION, NOS - RIGHT LIPOMA 2. INGUINAL REGION , NOS - LEFT LIPOMA CLINICAL HISTORY COLLECTION DATE: 10/04/19 FINAL DIAGNOSIS Right inguinal lipoma, inguinal hernia repair: ADIPOSE TISSUE CONSISTENT WITH HERNIA CONTENTS Left inguinal lipoma, ing uinal hernia repair: ADIPOSE TISSUE CONSISTENT WITH HERNIA CONTENTS DMW/sm D [id number] MACROSCOPIC Specimen (1) is received in [facility] labeled with the patient's name, "right lipoma" and consists of a porti on of yellow fatty tissue with smooth rounded margins that measures 11 cm in l ength with a diameter ranging from 1.5 up to 3.8 cm. The cut surface is homo genous. Back Facer tissue is submitted for histologic evaluation as (1). CONTINUED ON NEXT PAGE RUN DATE : 10/05/19 [facility] PAGE 2 RUN TIME: 1434 Specimen Inquiry RUN USER: INTERFACE SPEC #: [id number] PATIENT: NIKO BUSTILLO JR #[id number] (Continued) MACROSCOPIC (Continue d) Specimen (2) is [...] is submitted as (2). GROSS PERFORMED AT [facility] [address] [place] [address], [place] [address] (p)[phone] MICROSCOPIC All of the stains, i ncluding any controls performed, stain appropriately. MICROSCOPIC PERFOR MED AT [facility] [address] [place] [address] (P)[phone] PERFORMING SITE Diagnosis performed at: [facility], [place] [address] [place] [address] Signed SIGNATURE ON FILE Sami Nunez MD 10/05/19 1434 END OF REPORT AB SPECIFICITY CLASS [id number] 11:01:00* Test Item Value Reference Range Interpretation Comments AB Specificity Class I (test code = 3457) NO CLASS I A NTIBODY DETECTED WITH MFIs > 4000 VALENTÍN (test code = VALENTÍN) Disclaimer: This test was de veloped and its performance characteristics determined by the [facility] Laboratory. It has not been [...] to perform high complexity clinical laboratory testing. [facility] HospitalGLUBED2020-02-12 10:27:00* Test Item Value Reference Range Interpretation Comments GLUBED (test code = GLUBED) 180 mg/dL 74-106 H Performed by certified multicraft operator at [facility] [id number] 07:57:00* Test Item Value Reference Range Interpretation Comments POTASSIUM (test code = K) 3.8 mmol/L 3.5-5.1 N [id number] 07:49:00* Test Item Value Reference Range Interpretation Comments GLUBED (test code = GLUBED) 204 mg/dL 74-106 H Performed by certified multicraft operator at [facility] FLOW PRA CLASS I WITH REFLEX TO ANTIBODY [id number] 11:44:00* Test Item Value Reference Range Interpretation Comments Flow Class I Percent Positive (test code = 3229) 10 VALENTÍN (test code = VALENTÍN) Disclaimer: This test was de veloped and its performance characteristics determined by the [facility] Laboratory. It has not been [...] to perform high complexity clinical laboratory testing. [facility]FLOW PRA CLASS II WITH REFLEX TO ANTIBODY [id number] 11:44:00* Test Item Value Reference Range Interpretation Comments Flow Class II Percent Positive (test code = 3231) 0 VALENTÍN (test code = VALENTÍN) Disclaimer: This test was de veloped and its performance characteristics determined by the [facility] Laboratory. It has not been [...] to perform high complexity clinical laboratory testing. [facility] HospitalT Spot [id number] 19:29:00* Test Item Value Reference Range Interpretation Comments T-Spot TB (test code = 14098-2) Negative Neg Ctrl Spot Count (test code = 36951-0) 0 Panel A Spot (test code = 95606-0) 0 Panel B Spot (test code = 42620-3) [address] (test code = 99516-6) 0 Scan Result (test code = 8753373) [facility] HospitalBASIC METABOLIC [id number] 12:11:00* Test Item Value Reference Range Interpretation [...] CA) 7.5 mg/dL 8.5-10.1 L CBC W/AUTO [id number] 11:39:00* Test Item Value Reference Range Interpretation [...] NRBC#) 0.00 K/mm3 0.0-0.1 N Cytomegalovirus antibody, [id number] 04:11:00* Test Item Value Reference Range Interpretation Comments CYTOMEGALOVIRUS, IGG (test code = 3429) Positive Negative, Equi vocal A VALENTÍN (test code = VALENTÍN) CMV IgG Result Interpretatio n: </= 0.8 Al Negative 0.9- 1.0 Al Equivocal >/=1.1 Al Positive Lab Interpretation (test code = 85453-0) Abnormal [facility] HospitalEBV-VCA antibody, [id number] 04:11:00* Test Item Value Reference Range Interpretation Comments GUME MORALES VIRAL CAPSID ANTIGEN IGG (test code = 3415) Pos itive Negative, Equivocal A VALENTÍN (test code = VALENTÍN) Gume Morales Viral Capsid An tigen IgG Result Interpretation: </= 0.8 Al Negative 0.9-1.0 Al Equivocal >/= 1.1 Al Positive Lab Interpretation (test code = 03361-0) Abnormal [facility] HospitalEBV-VCA antibody, [id number] 04:11:00* Test Item Value Reference Range Interpretation Comments GUME MORALES VIRAL CAPSID ANTIGEN IGM (test code = 3418) Neg ative Negative, Equivocal VALENTÍN (test code = VALENTÍN) Gume Morales Viral Capsid An tigen IgM Result Interpretation: </= 0.8 Al Negative 0.9-1.0 Al Equivocal >/= 1.1 Al Positive Lab Interpretation (test code = 52879-2) Normal [facility]yt[facility]galovirus antibody, [id number] 04:11:00* Test Item Value Reference Range Interpretation Comments CMV IGM (test code = 3437) Negative Negative, Equivocal VALENTÍN (test code = VALENTÍN) CMV IgM Result Interpretatio n: </= 0.8 Al Negative 0.9-1.0 Al Equivocal >/= 1.1 Al Positive Lab Interpretation (test code = 30876-9) Normal [facility] - [id number] 04:11:00* Test Item Value Reference Range Interpretation Comments TREPONEMA PALLIDUM, SYPHILIS IGG (test code = 6561-5) Reactive Nonreactive AA VALENTÍN (test code = VALENTÍN) Test performed by IVAN method. Lab Interpretation (test code = 91659-2) Abnormal [facility] HospitalCYTOMEGALOVIRUS ANTIBODY, [id number] 04:11:00* Test Item Value Reference Range Interpretation Comments CYTOMEGALOVIRUS, IGG (BEAKER) (test code = 3429) Positive Negat leta, Equivocal A CMV IgG Result Interpretation: </= 0.8 Al Negative 0.9-1.0 Al Equivocal > /=1.1 Al PositiveCYTOMEGALOVIRUS ANTIBODY, [id number] 04:11:00* Test Item Value Reference Range Interpretation Comments CYTOMEGALOVIRUS IGM ANTIBODY (BEAKER) (test code = 3437) Neg ative Negative, Equivocal CMV IgM Result Interpretation: </= 0.8 Al Negative 0.9-1.0 Al Equivocal > /= 1.1 Al PositiveEBV ANTIBODY, [id number] 04:11:00* Test Item Value Reference Range Interpretation Comments GUME MORALES VIRAL CAPSID ANTIGEN IGG (BEAKER) (test code = 3415) Positive Negative, Equivocal A Gume Morales Viral Capsid Antigen IgG Result Interpretation: </= 0.8 Al Negative 0.9-1.0 Al Equivocal >/= 1.1 Al PositiveEBV ANTIBODY, [id number] 04:11:00* Test Item Value Reference Range Interpretation Comments GUME MORALES VIRAL CAPSID ANTIGEN IGM (BEAKER) (test code = 3418) Negative Negative, Equivocal Gume Morales Viral Capsid Antigen IgM Result Interpretation: </= 0.8 Al Negative 0.9-1.0 Al Equivocal >/= 1.1 Al PositiveTREPONEMA PALLIDUM - SYPHILIS [id number] 04:11:00* Test Item Value Reference Range Interpretation Comments TREPONEMA PALLIDUM, SYPHILIS IGG (BEAKER) (test code = 3427) Reactive Nonreactive AA Test performed by IVAN method.Varicella Zoster Antibody, [id number] 03:46:00 * Test Item Value Reference Range Interpretation Comments Varicella IgG (test code = 98141-6) 7.2 VALENTÍN (test code = VALENTÍN) VARICELLA ZOSTER RESULT INTE RPRETATIONS: <=0.8 Al Nonreactive: Presumed non-immune to VZV 0.9-1.0 Al Equivocal >=1.1 Al Reactive: Presumed immune to VZV [facility] ZOSTER ANTIBODY, [id number] 03:46:00* Test Item Value Reference Range Interpretation Comments VARICELLA ZOSTER IGG (AL) (BEAKER) (test code = 3197) 7.2 VARICELLA ZOSTER RESULT INTERPRETATIONS: <=0.8 Al Nonreactive: Presumed non-immune to VZV 0.9-1.0 Al Equivocal >=1.1 Al Reactive: Presumed immune to VZVRPR [id number] 02:59:00* Test Item Value Reference Range Interpretation Comments RPR Titer (test code = 21752-4) 1:4 [facility] [id number] 02:59:00* Test Item Value Reference Range Interpretation Comments RPR TITER (BEAKER) (test code = 1485) :4 [id number] 02:58:00* Test Item Value Reference Range Interpretation Comments RPR (test code = 81560-7) Reactive Nonreactive A Lab Interpretation (test code = 44450-0) Abnormal [facility] HospitalRPR2020-02-07 02:58:00* Test Item Value Reference Range Interpretation Comments RPR SCREEN (AKER) (test code = 420) Reactive Nonreactive A Hepatitis C Ntiiuugo7068-79-89 15:09:00* Test Item Value Reference Range Interpretation Comments Hepatitis C Ab (test code = 28813-5) Reactive Nonreactive A VALENTÍN (test code = VALENTÍN) Wet Roaster ID - Defywire Lab Interpretation (test code = 77566-8) Abnormal [facility] HospitalHEPATITIS C [id number] 15:09:00* Test Item Value Reference Range Interpretation Comments HEPATITIS C ANTIBODY (BEAKER) (test code = 367) Reactive Nonrea ctive Supervisor [employer] ID - KAYLYNNGDirect AHG (JOHNNY)/Direct Wiesly2391-69-05 14:09:00* Test Item Value Reference Range Interpretation Comments Direct AHG-IGG (test code = 1006-6) NEGATIVE saline control-negative Direct AHG-C3B, C3D (test code = 1003-3) NEGATVIE [facility] B surface bcseuoub2468-58-87 13:48:00* Test Item Value Reference Range Interpretation Comments Hep B S Ab (test code = 18465-4) <8.0 <8.0 mIU/mL VALENTÍN (test code = VALENTÍN) Wet Roaster ID - Defywire Lab Interpretation (test code = 68907-8) Normal [facility] B SURFACE [id number] 13:48:00* Test Item Value Reference Range Interpretation Comments HEPATITIS B SURFACE ANTIBODY (BEAKER) (test code = 647) < mIU/mL <8.0 Wet Roaster ID - VinopolisAVINASHepatitis B surface rxvcctx4776-55-13 13:45:00* Test Item Value Reference Range Interpretation Comments HBsAg Screen (test code = 5195-3) Nonreactive Nonreactive VALENTÍN (test code = VALENTÍN) Wet Roaster ID - Defywire Lab Interpretation (test code = 68816-8) Normal [facility] B core antibody, [id number] 13:45:00* Test Item Value Reference Range Interpretation Comments Hep B C IgM (test code = 47659-1) Nonreactive Nonreactive VALENTÍN (test code = VALENTÍN) Wet Roaster ID - Defywire Lab Interpretation (test code = 81952-2) Normal [facility] HospitalHIV-1 Antigen with HIV-1/2 Unzgknaa4981-46-15 13:45:00* Test Item Value Reference Range Interpretation Comments HIV-1 Antigen with HIV 1&2 Antibody (test code = 59020-5) No nreactive Nonreactive VALENTÍN (test code = VALENTÍN) Wet Roaster ID - JANIE Lab Interpretation (test code = 21742-7) Normal [facility] HospitalHEPATITIS B SURFACE [id number] 13:45:00* Test Item Value Reference Range Interpretation Comments HEPATITIS B SURFACE ANTIGEN (2) (BEAKER) (test code = 2585) Nonreactive Nonreactive Wet Roaster ID - KATLYNEPATITIS B CORE ANTIBODY, [id number] 13:45:00* Test Item Value Reference Range Interpretation Comments HEPATITIS B CORE IGM ANTIBODY (BEAKER) (test code = 645) Non reactive Nonreactive Wet Roaster ID - KATLYNIV-1 ANTIGEN WITH HIV-1/2 [id number] 13:45:00* Test Item Value Reference Range Interpretation Comments HIV-1 ANTIGEN WITH HIV 1\\T\\2 ANTIBODY (2) (BEAKER) ( st code = 2586) Nonreactive Nonreactive Wet Roaster ID - KAYLYNNGPTH, Gewjhb1523-81-22 13:32:00* Test Item Value Reference Range Interpretation Comments PTH (test code = 2731-8) 462.7 pg/mL 8.5-72.5 H VALENTÍN (test code = VALENTÍN) Wet Roaster ID - JANIE Lab Interpretation (test code = 62443-3) Abnormal [facility] HospitalPTH, [id number] 13:32:00* Test Item Value Reference Range Interpretation Comments PARATHYROID HORMONE INTACT (BEAKER) (test code = 577) 462.7 pg/mL 8.5-72.5 H Wet Roaster ID - KAYLYNNGComprehensive metabolic tpcpr6296-50-95 13:30:00* Test Item Value Reference Range Interpretation Comments Protein, Total (test code = 2885-2) 7.5 6.0- 8.3 gm/dL Albumin (test code = 28979-9) 4.0 g/dL 3.5-5 Alkaline Phosphatase (test code [...] mg/dL 70-105 H Calcium (test code = 94284-2) 8.0 mg/dL 8.4-10.2 L AST (test code = 1920-8) 18 U/L 5-34 ALT (test code = 1742-6) 20 U/L 6-55 EGFR (test code = 24041-0) 12 mL/min/1.73 sq m ESTIMATED GFR IS NOT ACCURATE CREATININE CLEARANCE IN PREDICTING GLOMERULAR FILTRATION RATE. ESTIMATED GFR IS NOT APPLICABLE FOR DIALYSIS PATIENTS. VALENTÍN (test code = VALENTÍN) Wet Roaster ID - ROSIANG Lab Interpretation (test code = 68288-0) [facility] [id number] 13:30:00* Test Item Value Reference Range Interpretation [...] = 353) 18 U/L 5-34 ALT (SGPT) ([facility]) (test code = 347) 20 U/L 6-55 EGFR ([facility]) (test code = 1092) 12 mL/min/1.73 sq m ESTIMATED GFR IS NOT ACCURATE CREATININE CLEARANCE IN PREDICTING GLOMERULAR FILTRATION RATE. ESTIMATED GFR IS NOT APPLICABLE FOR DIALYSIS PATIENTS. Wet Roaster ID - ROSAVINASHGGamma Glutamyl Transferase (GGT)2019-09-27 13:19:00* Test Item Value Reference Range Interpretation Comments GGT (test code = 2324-2) 84 U/L 9-64 H VALENTÍN (test code = VALENTÍN) Wet Roaster ID - VinopolisIANG Lab Interpretation (test code = 43238-5) Abnormal [facility] HospitalLactate Dehydrogenase (LDH)2019-09-27 13:19:00* Test Item Value Reference Range Interpretation Comments LDH (test code = 2532-0) 231 U/L 125-220 H VALENTÍN (test code = VALENTÍN) Wet Roaster ID - VinopolisIANG Lab Interpretation (test code = 20646-5) Abnormal [facility] HospitalPhosphorus2020-02-05 13:19:00* Test Item Value Reference Range Interpretation Comments Phosphorus (test code = 2777-1) 4.7 mg/dL 2.3-4.7 VALENTÍN (test code = VALENTÍN) Wet Roaster ID - VinopolisAVINASH Lab Interpretation (test code = 36982-8) Normal [facility] HospitalUric Anvp2997-35-07 13:19:00* Test Item Value Reference Range Interpretation Comments Uric Acid (test code = 3084-1) 4.6 mg/dL 2.6-7.2 VALENTÍN (test code = VALENTÍN) Wet Roaster ID - VinopolisIAN Lab Interpretation (test code = 06128-4) Normal [facility] HospitalURIC [id number] 13:19:00* Test Item Value Reference Range Interpretation Comments URIC ACID (BEAKER) (test code = 773) 4.6 mg/dL 2.6-7.2 Wet Roaster ID - ETQNWYRWGUHJLTSFS6213-51-52 13:19:00* Test Item Value Reference Range Interpretation Comments PHOSPHORUS (BEAKER) (test code = 604) 4.7 mg/dL 2.3-4.7 Wet Roaster ID - ROSIANGGAMMA GLUTAMYL TRANSFERASE (GGT)2019-09-27 13:19:00* Test Item Value Reference Range Interpretation Comments GAMMA GLUTAMYL TRANSFERASE (BEAKER) (test code = 364) 84 U/L 9-64 H Wet Roaster ID - ROSIANGLACTATE DEHYDROGENASE (LDH)2019-09-27 13:19:00* Test Item Value Reference Range Interpretation Comments LACTATE DEHYDROGENASE (BEAKER) (test code = 635) 231 U/L 125-2 20 H Wet Roaster ID - ROSIANGPT/pAHZ2272-09-04 13:04:00* Test Item Value Reference Range Interpretation Comments Protime (test code = 5902-2) 13.7 11.9- 14.2 seconds INR (test code = 6301-6) 1.1 <=5.9 PTT (test code = 07176-7) 31.4 22.5- 36.0 seconds VALENTÍN (test code = VALENTÍN) Effective 01/18/2019: PT Refe rence Range ChangeNew: 11.9- 14.2 Previous: 11.7-14.7 RECOMMENDED COUMADIN/WARFARIN INR THERAPY RANGESSTANDARD DOSE: 2.0-3.0 Includes: PROPHYLAXIS for venous thrombosis, sys temic embolization; TREATMENT for venous thrombosis and/or pulmonary embolus.HIGH RISK: Target INR is 2.5-3.5 for patients wiht mechanical heart valves. Lab Interpretation (test code = 50908-3) Normal [facility] HospitalPT/[id number] 13:04:00* Test Item Value Reference Range Interpretation [...] 450 K/CU MM MPV (test code = 06986-9) 10.8 fL 9.4-12.4 nRBC (test code = [...] % 0-1 Lab Interpretation (test code = 62950-5) [facility]normal [facility]PLT COUNT & AUTO [id number] 12:54:00* Test Item Value Reference Range Interpretation [...] = 2801) 0 % 0-1 BASIC METABOLIC [id number] 19:24:00* Test Item Value Reference Range Interpretation [...] CA) 6.8 mg/dL 8.5-10.1 L BASIC METABOLIC [id number] 19:16:00* Test Item Value Reference Range Interpretation [...] code = CA) mg/dL 8.5-10.1 CBC W/AUTO [id number] 19:04:00* Test Item Value Reference Range Interpretation [...] DIFF REQUIRED (test code = MDIFF) NO [id number] 20:30:00* Test Item Value Reference Range Interpretation Comments GLUBED (test code = GLUBED) 197 mg/dL 74-106 H Performed by certified multicraft operator at [facility] [id number] 19:20:00* Test Item Value Reference Range Interpretation Comments GLUBED (test code = GLUBED) 170 mg/dL 74-106 H Performed by certified multicraft operator at [facility] [id number] 13:00:00* Test Item Value Reference Range Interpretation Comments GLUBED (test code = GLUBED) 146 mg/dL 74-106 H Performed by certified multicraft operator at [facility] BASIC METABOLIC [id number] 07:51:00* Test Item Value Reference Range Interpretation [...] CA) 8.0 mg/dL 8.5-10.1 L BASIC METABOLIC [id number] 07:47:00* Test Item Value Reference Range Interpretation [...] CA) 8.0 mg/dL 8.5-10.1 L CBC W/AUTO [id number] 07:32:00* Test Item Value Reference Range Interpretation [...] DIFF REQUIRED (test code = MDIFF) NO [id number] 20:29:00* Test Item Value Reference Range Interpretation Comments GLUBED (test code = GLUBED) 307 mg/dL 74-106 H Performed by certified multicraft operator at [facility] [id number] 17:51:00* Test Item Value Reference Range Interpretation Comments GLUBED (test code = GLUBED) 263 mg/dL 74-106 H Performed by certified multicraft operator at [facility] [id number] 12:58:00* Test Item Value Reference Range Interpretation Comments GLUBED (test code = GLUBED) 336 mg/dL 74-106 H Performed by certified multicraft operator at [facility] BASIC METABOLIC [id number] 07:58:00* Test Item Value Reference Range Interpretation [...] ADD ON TO THE AM LABSBASIC METABOLIC [id number] 07:27:00 * Test Item Value Reference Range [...] SPECIMEN COMMENTS: ADD ON TO THE AM [id number] 05:46:00* Test Item Value Reference Range Interpretation Comments GLUBED (test code = GLUBED) 183 mg/dL 74-106 H Performed by certified multicraft operator at [facility] CBC W/AUTO [id number] 04:50:00* Test Item Value Reference Range Interpretation [...] code = NRBC#) 0.00 K/mm3 0.0-0.1 N [id number] 20:20:00* Test Item Value Reference Range Interpretation Comments GLUBED (test code = GLUBED) 200 mg/dL 74-106 H Performed by certified multicraft operator at [facility] [id number] 17:48:00* Test Item Value Reference Range Interpretation Comments GLUBED (test code = GLUBED) 145 mg/dL 74-106 H Performed by certified multicraft operator at [facility] UR CREATININE CLEARANCE [id number] 15:13:00* Test Item Value Reference Range Interpretation Comments CREATININE CLEARANCE RESULT (test code = CREATCLR) 8 mL/min 100 -120 L CREATININE (test code = CREAT) 4.00 mg/dL 0.7-1.3 H UR CREATININE RANDOM (test code = CREATU) 50.0 mg/dL 30-125 N UR VOLUME 24HR (test code = VOL) 900 mL/24hrs 4835-4596 TOTAL VOLUME: 900mLUR CREATININE CLEARANCE [id number] 07:37:00* Test Item Value Reference Range Interpretation Comments CREATININE CLEARANCE RESULT (test code = CREATCLR) mL/min 100 -120 CREATININE (test code = CREAT) mg/dL 0.7-1.3 UR CREATININE RANDOM (test code = CREATU) 50.0 mg/dL 30-125 N UR VOLUME 24HR (test code = VOL) mL/24hrs 2348-4076 TOTAL VOLUME: 629fJUZJMOU3021-24-23 06:47:00* Test Item Value Reference Range Interpretation Comments GLUBED (test code = GLUBED) 91 mg/dL 74-106 N Performed by certified multicraft operator at [facility] BASIC METABOLIC [id number] 05:40:00* Test Item Value Reference Range Interpretation [...] CA) 7.5 mg/dL 8.5-10.1 L BASIC METABOLIC [id number] 05:35:00* Test Item Value Reference Range Interpretation [...] code = CA) mg/dL 8.5-10.1 CBC W/O [id number] 05:32:00* Test Item Value Reference Range Interpretation [...] code = MPV) 11.0 fL 6.7-11.0 N [id number] 21:27:00* Test Item Value Reference Range Interpretation Comments GLUBED (test code = GLUBED) 92 mg/dL 74-106 N Performed by certified multicraft operator at [facility] [id number] 17:07:00* Test Item Value Reference Range Interpretation Comments GLUBED (test code = GLUBED) 145 mg/dL 74-106 H Performed by certified multicraft operator at [facility] [id number] 13:57:00* Test Item Value Reference Range Interpretation Comments GLUBED (test code = GLUBED) 155 mg/dL 74-106 H Performed by certified multicraft operator at [facility] AB HEPATITIS B [id number] 13:10:00* Test Item Value Reference Range Interpretation Comments AB HEPATITIS B SURFACE (test code = HBSAB) Non Reactive () Non Reactive: Inconsistent with immunity, less than 10 mIU/mL Reactive: Consistent with immunity, greater than 9.9 mIU/mLPerformed At: [facility] [address] [id number] White MD Ph:[phone] HEPATITIS B CORE ANTIBODY,[id number] 13:10:00* Test Item Value Reference Range Interpretation Comments HEPATITIS B CORE ANTIBODY,TOT (test code = HBCAB) Positive Nega tive A Performed At: [facility] [address] [id number] White MD Ph:[phone] - [facility] [id number] 08:44:00 Name: NIKO BUSTILLO JR [facility] : 1955 Age/S: 64 / M [address] Unit #: [id number] Loc: [place] [address] Phys: Luan Guzman MD Acct: [id number] Dis Date: Status: ADM IN PHONE #: [phone] Exam Date: 09/04/2019 1642 FAX #: [phone] Reason: EXAMS: CPT CODE: [id number] [facility] ACCESS 65690 Fluoro Time: DAP (Gy m2): Air Kerma (mGy): REASON FOR EXAM: ESRD Referring Physician: Luan Guzman MD PROCEDURE: Ultrasound and fluoroscopic guided tunneled hemodialysis catheter placement with IV conscious sedation CPT code: 62095, 50831,41157 Yidm-dp-gxyc procedure time is approximately: 45 minutes FINDINGS: [...] was used to access the vein. A custodial dialysis catheter was tunneled under the subcutaneous [...] (0844) Cliff Orig Print D/T: S: 09/05/2019 (3324) PAGE 1 Signed Report - SP FLUORO GUID CTRL ACC DEV 2019-09-05 08:44:00 Name: NIKO BUSTILLO JR [facility] : 1955 Age/S: 64 / M [address] Unit #: [id number] Loc: [place] [address] Phys: Luan Guzman MD Acct: [id number] Dis Date: Status: ADM IN PHONE #: [phone] Exam Date: 09/04/2019 1642 FAX #: [phone] Reason: EXAMS: CPT CODE: [id number] SP FLUORO GUID CTRL ACC DEV 34041 Fluoro Time: 6 DAP (Gy m2): 0.51 Air Kerma (mGy): 1 REASON FOR EXAM: ESRD Referring Physician: Luan Guzman MD PROCEDURE: Ultrasound and fluoroscopic guided tunneled hemodialysis catheter placement with IV conscious sedation CPT code: 47318, 32710,47156 Spdy-sl-sszj procedure time is approximately: 45 minutes FINDINGS: [...] was used to access the vein. A custodial dialysis catheter was tunneled under the subcutaneous [...] (0844) t.MADHAVIL Orig Print D/T: S: 09/05/2019 (9742) PAGE 1 Signed Report [id number] 06:33:00* Test Item Value Reference Range Interpretation Comments GLUBED (test code = GLUBED) 101 mg/dL 74-106 N Performed by certified multicraft operator at [facility] COMPREHENSIVE METABOLIC [id number] 05:04:00* Test Item Value Reference Range Interpretation [...] due to change in reagent. COMPREHENSIVE METABOLIC [id number] 04:48:00* Test Item Value Reference Range Interpretation [...] TOTAL (test code = ALKP) IUnit/L 45-117 [id number] 21:03:00* Test Item Value Reference Range Interpretation Comments GLUBED (test code = GLUBED) 125 mg/dL 74-106 H Performed by certified multicraft operator at [facility] - XR CHEST 1 [id number] 20:25:00 FAX: Luan Jolly [phone] [place]: St: ADM FAX: Herman Watters [phone] Name: BUSTILLOGABRIEL RADFORDLILLI NORRIS [facility] : 1955 Age/S: 64/M [address] [facility] Unit #: [id number] Loc: [place] [address] Phys: Trey Vu MD Acct: [id number] Dis Date: Status: ADM IN PHONE #: [phone] Exam Date: 09/04/2019 1700 FAX #: [phone] Reason: POST LINE PLACEMENT EXAMS: CPT CODE: [id number] XR CHEST 1 V 73437 EXAM: Chest x-ray, one view; INFORMATION: Post line placement; IMPRESSION: 1. The tip of a new tunneled right IJ hemodialysis catheter is positioned at the SVC/right atrial junction. 2. No evidence of a pneumothorax. 3. Otherwise significant improvement compared with yesterday's study with resolution of pulmonary edema and decrease in heart size. The heart is now borderline in size. Location code: [facility] at 2024 Reported and signed by: Lamin Mooney M.D. CC: Luan Guzman MD; Herman Preston Technologist: AISLINN Donnelly Trnscrd Date/Time/By: 09/04/2019 (2024) : By: MarinoGRW Orig Print D/T: S: 09/04/2019 (2027) PAGE 1 Signed Report - CT ABD PELVIS W/O [id number] 16:12:00 Name: BUSTILLONIKO JR [facility] : 1955 Age/S: 64 / M [address] [facility] Unit #: [id number] Loc: [place] [address] Phys: Destin Almaraz MD Acct: [id number] Dis Date: Status: ADM IN PHONE #: [phone] Exam Date: 09/04/2019 1430 FAX #: [phone] Reason: CONSTIPATION EXAMS: CPT CODE: [id number] CT ABD PELVIS W/O CONT 48325 EXAM: CT of the abdomen and pelvis [...] (161) t.SDR.GRW Orig Print D/T: S: 09/04/2019 (5345) PAGE 1 Signed Report FE W/TOTAL IRON BINDING CAP.2019-09-04 15:46:00* Test Item Value Reference Range Interpretation Comments SERUM IRON (test code = IRON) 30 ug/dL 50-175 L TOTAL IRON BINDING CAPACITY (test code = TIBC) 271 mcg/dL 250-450 N IRON SATURATION (test code = FESAT) 11.07 % 13-45 L [id number] 15:46:00* Test Item Value Reference Range Interpretation Comments FERRITIN (test code = KI) 71 ng/mL 8-388 N CBC W/AUTO [id number] 14:30:00* Test Item Value Reference Range Interpretation [...] DIFF REQUIRED (test code = MDIFF) NO [id number] 13:55:00* Test Item Value Reference Range Interpretation Comments GLUBED (test code = GLUBED) 237 mg/dL 74-106 H Performed by certified multicraft operator at [facility] [id number] 06:18:00* Test Item Value Reference Range Interpretation Comments GLUBED (test code = GLUBED) 118 mg/dL 74-106 H Performed by certified multicraft operator at [facility] RENAL FUNCTION [id number] 05:02:00* Test Item Value Reference Range Interpretation [...] PHOS) 6.1 mg/dL 2.5-4.9 H RENAL FUNCTION [id number] 04:41:00* Test Item Value Reference Range Interpretation [...] = PHOS) mg/dL 2.5-4.9 AG HEPAT B [id number] 23:10:00* Test Item Value Reference Range Interpretation Comments AG HEPAT B SURF (test code = HBSAG) Nonreactive Index Nonreactive [id number] 20:29:00* Test Item Value Reference Range Interpretation Comments GLUBED (test code = GLUBED) 197 mg/dL 74-106 H Performed by certified multicraft operator at [facility] [id number] 19:30:00* Test Item Value Reference Range Interpretation Comments TROPONIN-I (test code = TROPI) 0.213 ng/mL 0-0.045 Results previously called COMMENTS TO FERMENTATION MANAGER: COLLECT 3 HOURS AFTER PREVIOUS [id number] 14:31:00* Test Item Value Reference Range Interpretation Comments TROPONIN-I (test code = TROPI) 0.227 ng/mL 0-0.045 Results called to [id number] by PARKER 09/03/19 1430Critical results verified and read back by Nurse? Y COMMENTS TO FERMENTATION MANAGER: COLLECT 3 HOURS AFTER PREVIOUS SAMPLECBC W/O [id number] 04:32:00* Test Item Value Reference Range Interpretation [...] MPV) 10.5 fL 6.7-11.0 N B-TYPE NATRIURETIC [id number] 04:30:00* Test Item Value Reference Range Interpretation Comments B-TYPE NATRIURETIC PEPTIDE (test code = BNP) 696 pg/mL 0-100 H BASIC METABOLIC [id number] 04:29:00* Test Item Value Reference Range Interpretation [...] CA) 6.2 mg/dL 8.0-10.5 LL HEPATIC FUNCTION [id number] 04:29:00* Test Item Value Reference Range Interpretation [...] code = ALKP) 202 U/L 50-139 H [id number] 04:29:00* Test Item Value Reference Range Interpretation Comments LIPASE (test code = LIP) 117 Unit/L 144-286 L [id number] 04:29:00* Test Item Value Reference Range Interpretation Comments TROPONIN-I (test code = TROPI) 0.02 ng/mL 0.00-0.056 N PROTHROMBIN [id number] 04:27:00* Test Item Value Reference Range Interpretation [...] (2.5-3.5) IS PATIENT ON ANTICOAGULANTS? NTHROMBOPLASTIN TIME [id number] 04:27:00* Test Item Value Reference Range Interpretation Comments THROMBOPLASTIN TIME PARTIAL (test code = PTT) 27.5 seconds 25.5-34. 3 N Therapeutic Range for patients on Heparin Therapy is 2 to2.5 times their baseline PTT level. IS PATIENT ON ANTICOAGULANTS? NBASIC METABOLIC [id number] 04:23:00* Test Item Value Reference Range Interpretation [...] CA) 6.2 mg/dL 8.0-10.5 LL HEPATIC FUNCTION [id number] 04:23:00* Test Item Value Reference Range Interpretation [...] TOTAL (test code = ALKP) IUnit/L 45-117 [id number] 04:23:00* Test Item Value Reference Range Interpretation Comments LIPASE (test code = LIP) U/L 73.0-393.0 [id number] 04:23:00* Test Item Value Reference Range Interpretation Comments TROPONIN-I (test code = TROPI) ng/mL 0-0.045 - XR CHEST 1 [id number] 04:19:00 FAX: Roc Parisi MD [phone] [place]: [place] [address]: REG FAX: Muriel Jacob [phone] Name: NIKO BUSTILLO JR [facility] FSED : 1955 Age/S: 64/M [address] Unit #: [id number] Loc: [facility] [address] Phys: Roc Amaro MD [place], [place] [address] Acct: [id number] Dis Date: Status: REG ER PHONE #: Exam Date: 09/03/2019417 FAX #: Reason: CHEST PAIN EXAMS: CPT CODE: [id number] XR CHEST 1 V 45558 - XR CHEST 1 V, 09/03/2019 3:57 [...] (0422) PAGE 1 Signed Report Comprehensive metabolic [id number] 16:41:22* Test Item Value Reference Range Interpretation Comments Sodium (test code = 2951-2) 138 135- 150 mEq/L Potassium (test code = 2823-3) 5.1 3.5- 5.0 mEq/L H Chloride (test code = 2074-0) 105 98- 112 mEq/L CO2 (test code = 2028-04) 15 mmol/L 24-31 L Anion gap (test code = 12813-5) 18@ANIO 7- 15 mEq/L H BUN (test code = 3094-0) 93 mg/dL 7-18 H Creatinine (test code = 2160-0) 5.20 mg/dL 0.7-1.2 H Glucose (test code = 2345-7) 164 mg/dL 65-100 H Calcium (test code = 68131-0) 7.0 mg/dL 8.8-10.2 L Protein (test code [...] <0.3 0.2-1.2 Lab Interpretation (test code = 15287-8) [facility]normal [facility] [id number] 16:41:21* Test Item Value Reference Range Interpretation Comments Lipase (test code = 3040-3) 33 U/L 13-60 [facility] [id number] 16:41:21* Test Item Value Reference Range Interpretation Comments Estimated GFR (test code = 5488) 11 mL/min/1.73 m2 A Catergory Units InterpretationG1 >=90 Normal or highG2 60-89 Mildly aaszezktnF6y 45-59 Mildly to moderately nrszeentoG2w 30-44 Moderately to severely decreasedG4 15-29 Severely decreasedG5 <15 Kidney failureThe eGFR was calculated using the Chronic Kidney Disease Epidemiology Collaboration (CKD-EPI) equation. Interpretation is based on recommendations of the National Kidney Foundation-Kidney Disease Outcomes Quality Initiative (NKF-KDOQI) published in 2014. Lab Interpretation (test code = 47045-2) Abnormal [place] [facility] screen and microscopy, with reflex to culture 2019-07-03 16:37:50* Test Item Value Reference Range Interpretation Comments Specimen site (test code = 2949110) Clean catch Color, UA (test code = 5778-6) Yellow Appearance, UA (test code = 5767-9) Slightly-Cloudy Specific gravity, UA (test code = 5811-5) 1.015 1.001-1.035 pH, UA (test code = 5803-2) 5.0 5.0-8.5 Protein, UA (test code = 99551-2) 3+ Negative A Glucose, UA (test code = 79472-5) 1+ Negative A Ketones, UA (test code = 2514-8) Negative Negative Bilirubin, UA (test code = 5770-3) Negative Negative Blood, UA (test code = 5794-3) Negative Negative Nitrite, UA (test code = 5802-4) Negative Negative Urobilinogen, UA (test code = 17564-4) Negative <2.0 Leukocyte esterase, UA (test code = 5799-2) Negative Negative WBC, UA (test code = 5821-4) None seen 0- 1 /HPF RBC, UA (test code = 88330-9) 3 0- 5 /HPF Bacteria, UA (test code = 12938-6) Trace None seen Yeast, UA (test code = 06495-1) None seen Yeast with pseudohyphae, UA (test code = 55898-4) None seen Lab Interpretation (test code = 04264-2) Abnormal [facility] with platelet and [id number] 16:21:01* Test Item Value Reference Range Interpretation Comments WBC (test code = 05043-0) 7.6 4.2- 11.0 k/uL RBC (test code = 20663-6) 2.97 m/uL 4.04-5.86 L HGB (test code = 718-7) 8.1 g/dL 13-17.3 L HCT (test code = 4544-3) 26.5 % 34-45 L MCV (test code = 787-2) 89.2 fL 80-98 MCH (test code = 785-6) 27.3 pg 27-34 MCHC (test code = 786-4) 30.6 g/dL 31.5-36.5 L RDW - SD (test code = 26875-3) 46.1 fL 37-51 MPV (test code = 15457-5) 11.1 fL 7.4-10.4 H Platelet count (test code = 93502-1) 240 150- 400 k/uL Nucleated RBC (test code = 32002-5) 0.00 /100 WBC Neutrophils (test code = 43616-1) 62.5 % 36-66 Lymphocytes (test code = 70480-2) 26.3 % 24-44 Monocytes (test code = 96833-0) 8.5 % 0-6 H Eosinophils (test code = 01503-9) 2.0 % 0-6 Basophils (test code = 37945-7) 0.4 % 0-1.2 Immature granulocytes (test code = 10501-8) 0.3 % 0-1 Lab Interpretation (test code = 43766-3) Abnormal Ronnie Mcfarland
--- NOTE | 2020-03-22 19:24 | NUR ---
COMPLETED BEDSIDE SHIFT REPORT AND ROUNDING WITH ONCOMING NIGHT NURSE. PATIENT IN STABLE CONDITION, NO S/S OF DISTRESS NOTED. IV LINE ASYMPTOMATIC AND PATIENT, TRANSPARENT DRESSING C/D/I. PATIENT RECEIVING WOUND CARE TREATMENT TO THE FOOT. TELEMETRY APPLIED. BED IN LOWEST POSITION AND LOCKED, SIDE RAILS X2 , NONSKID SOCKS APPLIED. CALL LIGHT WITHIN REACH.
[2020-03-23] VITALS: BP 162/42
--- NOTE | 2020-03-23 02:17 | NUR ---
Confirmed with dialysis nurse that patient is on schedule for hemodialysis later today.
[2020-03-23 04:00] VITALS: BP 163/46
[2020-03-23] MEDS: HYDROCODONE/APAP 5MG-325MG TAB PO PRN (05:09)
--- NOTE | 2020-03-23 06:21 | NUR ---
Patient awake and sitting up in bed, watching TV, respirations even and unlabored on room air, no s/s of distress at this time. All safety measures in place.
--- NOTE | 2020-03-23 07:00 | NUR ---
received report, pt is alert resting in bed, no s/s of distress. call light within reach and instructed pt to call RN for help. pt will be discharged today after dialysis. wound care clinic needs to be set up and waiting for Dr. Garcia to round to get prescription for antibiotics if needed
--- NOTE | 2020-03-23 07:11 | NUR ---
D/C summary Principal Dx: Sepsis due to DFU- IV cefepime/vancomycin Right DFU- IV abx; f/u cx Enterobacter Bacteremia Secondary Dx: DM2- hab1c/lipids/SSI ESRD- HD per nephr COVID19 Negative Gait dysfunction- PT consult Prop: heparin Dispo; 03-21-20 cont care; f/u labs; COVID negative; check CBC; GNR baceremia- IV abx f/u cx; follow vitals 03-22 GNR bacteremia in 1 bottle; awaiting spp/sen; start lantus; d/c home f/u pcp 2-3 days and wound care clinic Wednesday Antibiotics choice per ID stable d/c>35mins Johnathon Brian MD, PhD.
[2020-03-23] MEDS: INSULIN REGULAR, HUMAN 100 UNIT/1 ML 3ML VIAL SQ SCH ×3 (07:30→17:04)
[2020-03-23 07:44] VITALS: BP 164/56
[2020-03-23] MEDS: SEVELAMER CARBONATE 800 MG TAB PO SCH ×3 (08:00→17:03)
[2020-03-23] MEDS: HEPARIN SOD (PORCINE) 5,000 UNIT/ML VIAL SC SCH (08:15)
[2020-03-23] MEDS ORDERED: SODIUM CHLORIDE 0.9% 1000ML 2,000 ML ONE (08:17)
[2020-03-23] MEDS: METOPROLOL SUCCINATE 50 MG TAB XL PO SCH ×2 (08:19→15:35)
[2020-03-23 08:40] VITALS: BP 164/56
[2020-03-23] MEDS: ATORVASTATIN 20 MG TAB PO SCH (09:00)
[2020-03-23] MEDS ORDERED: SODIUM CHLORIDE 0.9% 1000ML 2,000 ML IV PRN ×2 (10:15)
[2020-03-23] MEDS ORDERED: HEPARIN SOD (PORCINE) 1000 UNIT/ML SDV IV PRN (10:15)
[2020-03-23 11:10] VITALS: BP 127/69
--- NOTE | 2020-03-23 12:03 | Progress Note ---
DATE: 03/23/2020 Nephrology Followup note SUBJECTIVE: The patient was seen on dialysis, in no acute distress. He denied any nausea, vomiting, chest pain, or shortness of breath. OBJECTIVE: VITAL SIGNS: Stable. CHEST: Revealed fair air entry. HEART: S1, S2. ABDOMEN: Soft. EXTREMITIES: No edema. 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 LABORATORY DATA: No new labs from today. IMPRESSION: 1. End-stage renal disease on hemodialysis now with no evidence of volume overload or hyperkalemia. 2. Anemia secondary to end-stage renal disease. PLAN: Strict I's and O's. On dialysis now for 3.5 hours, sodium 140, 35 bicarb, 3 potassium, 2.5 calcium, and UF 1-2 L as tolerated. From the renal standpoint, he appears clinically stable to be discharged if okay with consultants and primary. Fernando Kim MD SA/GWEN /[id number]
--- NOTE | 2020-03-23 12:41 | NUR ---
CALL TO PT IN ROOM FOR WOUND CARE CLINIC CHOICE. STATES HE GOES NEXT DOOR FOR HIS WOUND CARE, BUT DOES NOT KNOW THE INFORMATION. CM INQUIRED IF DR. RODRIGUEZ WANTED TO CONTINUE SEEING HIM. STATES HE DIDN'T KNOW, BUT HAS TO HAVE SOMEONE THAT CAN WORK WITH HIS DIALYSIS SCHEDULE. HE THEN DECIDED HE SHOULD CONT SEEING HIS SAME DOCTOR. CM AGREED TO CALL PT BACK AFTER HE GETS WOUND CARE CLINIC INFO FROM HIS .
--- NOTE | 2020-03-23 13:29 | NUR ---
CALL BACK TO THE PT FOR WOUND CARE INFO. STATES HE WOULD LIKE TO CONTINUE WORKING W DR. MICHAEL HUERTA CALL TO [facility] @ [phone]. NO ANSWER. LEFT VM W CONTACT INFO. INFORMED PT TO CALL ALSO FOR AN APPOINTMENT. STATES HIS WILL CALL. WILL F/U WILL SPEAK W CANDELARIO ABOUT GIVING SUPPLIES TO THE PT IF HE DISCHARGES HOME TODAY AND GET WOUND CARE ORDERS FROM DR. RODRIGUEZ. Addendum: 03/23/20 at 1340 by Denisse Rashid CM CALL BACK TO THE PT TO ENSURE HE WAS OK W GOING TO [facility]. HE SAID YES. STATES HE ALREADY HAD SUPPLIES. STATES HE RECEIVED WOUND CARE Q WEDNESDAY AND HE AND HIS MANAGED HIS WOUND CARE Wed.
[2020-03-23 15:18] VITALS: BP 170/81
--- NOTE | 2020-03-23 17:45 | NUR ---
PROGRESS NOTE: DR WHITING HISTORY OF PRESENT ILLNESS: This is a 64-year-old male, comes in from the dialysis, after dialysis he spiked a fever. The patient has been having chills, fever, not feeling well. He was given dose of vancomycin 1 g, gentamicin 80 mg. He was sent here. The patient is being admitted, I am asked to see him with fever and chills. ALLERGIES: NKA. REVIEW OF SYSTEMS: GENERAL: He is just not feeling well. Fever and chills as mentioned above. : Negative. GI: Negative. Otherwise all negative. LABORATORY DATA: reviewed RADIOLOGICAL DATA: reviewed PHYSICAL EXAMINATION: GENERAL: He is currently alert, oriented. VITAL SIGNS: Stable. Currently afebrile. He had 102.3 earlier. HEENT: He is not icteric. NECK: Supple. CHEST: Clear bilaterally. HEART: S1, S2. No S3, S4, or murmur. ABDOMEN: Soft. Bowel sounds present. EXTREMITIES: No edema. SKIN: No rash. IMPRESSION: 1. Enterobacter Bacteremia 2. Sepsis present on admission 3. DFU PLAN: D/c home with IV ABT Arranged by BRADLEY Butterfield in clinic in 4 weeks
--- NOTE | 2020-03-23 19:00 | NUR ---
Patient discharged home via private auto. Vital signs stable, no s/s of distress at this time.
--- NOTE | 2020-03-29 13:55 | NUR ---
CALL TO CONFIRM PT WAS BEING SEEN BY THE [facility] @ [phone]. SPOKE Cary ZAMUDIO AND CONFIRMED.
== END 2020-03-23 19:04 | disposition home or self-care (01) | DRG 264 ==
LOC: ER 11:49 → ERHOLD 13:46 → IMCU 15:25 → MED/SURG3 03-20 09:31 → OBSVTOIN 03-21 08:37
PROVIDERS: ADMIT Internal Medicine; ATTEND Internal Medicine
PROC: 0JBR0ZZ Excision of Left Foot Subcutaneous Tissue and Fascia, Open Approach (ICD-10-PCS; principal; 2020-03-22)
PROC: 5A1D70Z Performance of Urinary Filtration, Intermittent, Less than 6 Hours Per Day (ICD-10-PCS; 2020-03-22)
PROC: 5A1D70Z Performance of Urinary Filtration, Intermittent, Less than 6 Hours Per Day (ICD-10-PCS; 2020-03-23)
DX: T80.211A Bloodstream infection due to central venous catheter, initial encounter (principal); A41.59 Other Gram-negative sepsis; N18.6 End stage renal disease; I12.0 Hypertensive chronic kidney disease with stage 5 chronic kidney disease or end stage renal disease; L97.429 Non-pressure chronic ulcer of left heel and midfoot with unspecified severity; Z99.2 Dependence on renal dialysis; E11.22 Type 2 diabetes mellitus with diabetic chronic kidney disease; E78.5 Hyperlipidemia, unspecified; E11.621 Type 2 diabetes mellitus with foot ulcer; Z11.59 Encounter for screening for other viral diseases; R26.9 Unspecified abnormalities of gait and mobility; Z89.431 Acquired absence of right foot; D63.1 Anemia in chronic kidney disease; Z79.4 Long term (current) use of insulin
CPT/HCPCS: 36415; 71045; 80053; 80061; 81001; 82550; 82553; 82948; 83036; 83605; 83880; 84484; 85025; 85610; 85730; 87040; 87071; 87086; 87186; 87205; 93005; 96372; 99284; G0378; J0692; J0696; J1644; J1815; J1817; J2405; J7030; J7040; J7050; U0002